=== PATIENT | female | born 1980 | race Caucasian/White ===

== ENCOUNTER 2022-10-14 11:05 | Inpatient (IN) ==
[2022-10-14] MEDS ORDERED: methylPREDNISolone 125 MG/2 ML VIAL IV STA ×2 (11:13→12:55)
[2022-10-14] MEDS ORDERED: HYDROmorphone INJ 0.5 MG/0.5 ML SYR IV STA ×2 (11:13→12:55)
[2022-10-14] MEDS ORDERED: ACETAMINOPHEN 1,000 MG/100 ML VIAL IV STA (11:13)
[2022-10-14] MEDS ORDERED: SODIUM CHLORIDE 0.9% 1000ML 1,000 ML IV ONE (11:26)
[2022-10-14 11:34] LABS: Basophils # (auto) 0.08 K/uL (0-0.2); Basophils % (auto) 0.8 %; Eosinophils # (auto) 0.14 K/uL (0-0.50); Eosinophils % (auto) 1.5 %; Hematocrit (blood only) 45.7 % (34.1-44.9); Hemoglobin 15.5 g/dl (12.0-16.0); Immature Granulocytes # (auto) 0.02 K/uL (0.00-0.02); Immature Granulocytes % (auto) 0.2 %; Mean Corpuscular Hemoglobin 28.9 pg (25.0-34.0); Mean Corpuscular Hgb Conc 33.9 g/dL (32.0-36.0); Mean Corpuscular Volume 85.3 fL (80.0-100.0); Mean Platelet Volume 9.7 fL (9.4-12.3); Monocytes % (auto) 7.4 %; Neutrophils # (auto) 6.57 K/uL (1.4-6.5); Neutrophils % (auto) 69.1 %; Platelet Count 427 K/uL (130-400); RDW Coefficient of Variation 12.6 % (11.5-14.5); RDW Standard Deviation 38.7 fL (36.4-46.3); Red Blood Count 5.36 M/uL (3.93-5.22); White Blood Count 9.51 K/ul (4.8-10.8)
[2022-10-14] MEDS ORDERED: OPTIRAY 320 500ml IV ONE (11:45)
[2022-10-14 11:56] LABS: Alanine Aminotransferase 26 U/L (7-52); Albumin Globulin Ratio 1.3 (0.9-2); Albumin Level 4.2 gm/dl (3.4-5.0); Alkaline Phosphatase 83 U/L (34-104); Anion Gap 7 (3-11); Aspartate Aminotransferase 16 U/L (13-39); BUN Creatinine Ratio 16.9 (10-20); Bilirubin,Total 0.3 mg/dl (0.2-1.0); Blood Urea Nitrogen 11 mg/dl (6-23); Calcium 9.6 mg/dl (8.5-10.1); Carbon Dioxide 29 mmol/L (21-32); Chloride 102 mmol/L (98-107); Est GFR (African American) 126.9 ml/min; Est GFR (Non-African American) 109.5 ml/min; Globulin 3.3 gm/dl (2.5-4.0); Glucose 125 mg/dl (70-99(Fasting)); Potassium 4.3 mmol/L (3.5-5.1); Sodium 138 mmol/L (136-145); Total Protein 7.5 gm/dl (6.0-8.3)
--- NOTE | 2022-10-14 12:07 | CT Scan Report ---
UNENHANCED CT OF THE BRAIN; CT ANGIOGRAM OF THE BRAIN; CT ANGIOGRAM OF THE NECK CLINICAL HISTORY: Strokelike symptoms. Slurred speech. COMPARISON STUDY: CT of the brain dated 10/06/2022. MRI and MR angiogram of the brain dated 10/06/20 22. TECHNIQUE: Unenhanced axial CT scan of the brain is performed. Subsequently, following the IV adminis tration of 114 of [employer] 320, CT angiogram of the head and neck was performed from the aortic arch t o the vertex. Images are reviewed in the axial, sagittal, and coronal planes. 3-D MIPS images are cre ated and assessed. IV contrast was administered without complication. All measurements were calculate d based on NASCET criteria. A dose lowering technique was utilized adhering to the principles of ALA RA. CT DOSE: 1068.23 mGy.cm FINDINGS: Brain parenchyma: The brain parenchyma is normal in appearance. There is no hemorrhage, mass effect, or evidence of acute territorial ischemia by CT criteria. There is no evidence of enhancing mass lesi on on the angiogram phase images. The ventricles, sulci, and cisterns are normal in configuration. Gr ay-white matter differentiation is preserved. No extra-axial fluid collection is seen. Thoracic aorta: Visualized portions of the thoracic aorta are normal in caliber. The aortic arch demo nstrates standard 3-vessel anatomy. Right carotid arterial system: The right common carotid artery is widely patent, as are the right int ernal and external carotid arteries. Left carotid arterial system: The left common carotid artery is widely patent, as are the left continuous improvement intern al and external carotid arteries. Vertebral arteries: The vertebral arteries are patent bilaterally noting left-sided dominance. There is a beaded appearance with 2 saccular outpouchings arising from the distal right vertebral artery at the level of C2 seen on images #249 and #258. These measure up to 4 mm. There is also focal narrowin g of the intervening vertebral artery at this level, best seen on axial image #257. A short segment d issection is not excluded. Subclavian arteries: Widely patent bilaterally. Intracranial vasculature: There are bilateral posterior communicating arteries. The internal carotid arteries are patent at the skull base, as are the anterior and middle cerebral arteries bilaterally. The vertebrobasilar system and posterior cerebral arteries are widely patent. The left vertebral wayne ry is dominant. There is no aneurysm, high-grade stenosis, or focal vessel cut off seen throughout th e intracranial circulation. Jugular veins: Patent bilaterally. Dural sinuses: Patent. Lung apices: Partially visualized upper lobe lung parenchyma appears clear. Soft tissues: The visualized pharyngeal soft tissues are normal in appearance noting angiographic pha se technique. The oropharyngeal airway appears widely patent. The salivary and thyroid glands are nor mal in appearance. No cervical lymphadenopathy is seen. Skeletal structures: The calvarium appears intact. The cervical spine is within normal limits. Orbits: The bony orbits are intact. Orbital contents are normal as visualized. Sinuses and mastoids: The paranasal sinuses are clear. The mastoid air cells are well pneumatized. IMPRESSION: 1. There is no hemorrhage, mass effect, or evidence of acute territorial ischemia by CT criteria. 2. Unremarkable CT angiogram of the brain. 3. There is a beaded appearance with 2 saccular outpouchings of the distal cervical portion of the ri ght vertebral artery at C2. The outpouching measure up to 4 mm. These may represent small aneurysms, or this could be seen with fibromuscular dysplasia. There is focal narrowing of the right vertebral a rtery between the outpouchings at this level such that a small dissection is not excluded. 4. Otherwise unremarkable CT angiogram of the neck. ACT 112: Negative or not required by law. Electronically signed by: Manny Neely M.D. 10/14/2022 12:05 PM
[2022-10-14 12:10] LABS: Partial Thromboplastin Time 27.9 Seconds (21.0-31.0); Prothrombin Time 10.3 Seconds (9.0-12.0)
--- NOTE | 2022-10-14 12:14 | Emergency Department Note ---
Impression & Plan Acute facial pain, Stroke-like symptoms, [facility] ED Provider Note CHIEF COMPLAINT: Stroke symptoms, FARFAN, shingles HISTORY OF PRESENT ILLNESS: This 42 yo female patient presents to the emergency department with complaints of left-sided facial pain and rash. Patient states she was diagnosed with shingles on the 18th of this month. The rash seemed to be getting better as well as the pain however the last 24 hours or so the rash seemed to progress. She states the pain is most significant in the left ear. She denies any fevers. She was seen by her PCP today who referred her to the emergency department for an episode of speech difficulty. states she was fine prior to him leaving for work at 8:00. Her doctor's appointment was at 905. The patient is not able to give a last known well other than not. 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 Initially upon my evaluation in the room, patient was neurologically intact, tearful and clutching the left side of the face. About 5 minutes into the interview and after her 's arrival into the room, the patient developed a left lower face droop, right sided tongue deviation and was unable to give her name and age. Stroke alert was called. REVIEW OF SYSTEMS: A review of systems was performed with positives and pertinent negatives listed in the history of present illness. 10 systems were reviewed and are otherwise negative. ALLERGIES: see below MEDICATIONS: see below PMH: see below SOCIAL HISTORY: see below DDx: Meningitis, encephalitis, stroke, dehydration, metabolic abnormality, hypo/hyperglycemia, electrolyte disturbance, anemia, hypoxia, cardiac sources, intracranial hemorrhage, intracranial mass, toxicologic, neurologic, as well as other pathologies. PHYSICAL EXAM: Vital signs reviewed. General: Anxious, tearful and otherwise well-appearing 42-year-old female, face covered with sweatshirt, holding the left ear HEENT: No scleral icterus, PERRLA, neck supple. EOMI, moist mucous membranes. Left ear canal is clear, no lesions identified. Cardiovascular: Regular rate and rhythm, no extra sounds. Pulmonary: Clear to auscultation bilaterally, normal work of breathing. Abdomen: Soft, nontender, nondistended, positive bowel sounds. Musculoskeletal: Atraumatic, no peripheral edema. Neurologic: Patient awake alert and oriented x 3, slight facial droop noted to the left lower face, upper face is intact. Right sided tongue deviation. Patient periodically unable to open her eyes. Initially speaking clearly, then unable to say her name, her age. Unable to lift each leg to command, but strength seems to be symmetric. Possible mild left upper extremity pronator drift Skin: Warm, dry, healing zoster rash to the left side of the face without ocular or nasal involvement. Crusted without active vesicles. EMERGENCY DEPARTMENT COURSE/MDM: Stress. IV access was obtained and laboratory work was drawn. A stroke alert was called from the patient's bedside due to the acute change in presentation normal speech to a slight facial droop and diffic ulty with articulation. CT/CTA of the head and neck was performed and is read as below, the right vertebral artery shows 2 small outpouchings and a vertebral artery narrowing. There is no evidence of acute stroke on CT and no large vessel occlusion. Dr. Rogers of telestroke neurology from [facility] did evaluate the patient via the stroke cart. He felt the patient's symptoms are likely more functional, less likely to be seizure versus stroke. She did request evaluation from our local neurologist, Dr. Colón was contacted. He has recommended follow-up with MRI w/wo contrast. Please see his notes for further details. The patient's case was discussed with the hospitalist, Dr. Gilliland who will evaluate the patient for admission and further management. Patient and are aware of plan and agreed. MONITORING: An order for cardiac monitoring was placed and the patient is noted to be in a sinus tachycardia at 103 beats per minute. RADIOLOGY: See below EKG: Normal sinus rhythm at 94 bpm. Minimal voltage criteria for LVH, QTC is 445. No PVC, no PAC. Normal ST segments. When compared to previous dated October 06, 2022, no significant changes were found. DISPOSITION: Admission I have personally spent 32 minutes of critical care time in the direct manage ment of this patient. This was a life/limb threatening event. This 32 minutes is in excess of all separately billable procedures. 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 Surgical History History of cholecystectomy Social History Smoking Status: Never smoker Tobacco Type: Cigarettes Preferred Language: Spanish Feels Safe at Home: Yes Allergies Allergies Allergy/AdvReac Type Severity Reaction Status Date / Time hydrocodone [From Vicodin] Allergy Intermediate ITCHY Verified 10/14/22 15:01 RASH, RESTLESSNESS levofloxacin [From Levaquin] Allergy Intermediate ITCHY Verified 10/14/22 15:01 RASH, RESTLESSNESS oxycodone [From Percocet] Allergy Intermediate ITCHY Verified 10/14/22 15:01 RASH, RESTLESSNESS Home Meds Home Medications Medication Instructions Recorded Confirmed estradiol 0.5 mg tablet 0.5 mg PO DAILY 10/06/22 10/14/22 lisdexamfetamine 60 mg capsule 60 mg PO DAILY 10/06/22 10/14/22 (Vyvanse) pantoprazole 40 mg tablet,delayed 40 mg PO HS 10/06/22 10/14/22 release zolpidem 10 mg tablet (Ambien) 10 mg PO HS PRN Sleep 10/06/22 10/14/22 paroxetine HCl 40 mg tablet 40 mg PO HS 10/14/22 10/14/22 prednisone 50 mg tablet 50 mg PO DAILY 10/14/22 10/14/22 tizanidine 2 mg tablet 2 mg PO DIRECTED PRN MUSCLE 10/14/22 10/14/22 SPASMS valacyclovir 1 gram tablet 1 mg PO TID 10/14/22 10/14/22 Results & Data (ED) Vital Signs Vital Signs - 24 hr 10/14/22 11:04 10/14/22 11:30 10/14/22 11:30 Temperature 37.2 C 37.2 C Temperature Source Oral Oral Pulse Rate 115 H Pulse Rate [Right Finger] 115 H Pulse Rate from SpO2 Sensor Pulse Rhythm Regular Pulse Rhythm [Right Finger] Regular Pulse Strength Normal Pulse Strength [Right Finger] Normal Respiratory Rate 22 22 Respiratory Effort / Characteristics Non-Labored Non-Labored Respiratory Depth Normal Normal Respiratory Pattern Regular Regular Blood Pressure 165/105 H Blood Pressure [Right Arm] 165/105 H Blood Pressure Mean 125 Blood Pressure Mean [Right Arm] 125 Blood Pressure Position Lying Blood Pressure Position [Right Arm] Lying Pulse Oximetry 99 99 Oxygen Delivery Method Room Air Room Air Room Air Sepsis Recent Fever Within 48 Hours No Sepsis New/Unexplained Change in Mental Status N/A Sepsis Action Taken by Nursing No Action Required 10/14/22 11:14 10/14/22 11:15 10/14/22 11:44 Temperature Temperature Source Pulse Rate 102 H 90 82 Pulse Rate [Right Finger] Pulse Rate from SpO2 Sensor 81 Pulse Rhythm Pulse Rhythm [Right Finger] Pulse Strength Pulse Strength [Right Finger] Respiratory Rate 18 13 16 Respiratory Effort / Characteristics Respiratory Depth Respiratory Pattern Blood Pressure Blood Pressure [Right Arm] Blood Pressure Mean Blood Pressure Mean [Right Arm] Blood Pressure Position Blood Pressure Position [Right Arm] Pulse Oximetry 100 Oxygen Delivery Method Sepsis Recent Fever Within 48 Hours Sepsis New/Unexplained Change in Mental Status Sepsis Action Taken by Nursing 10/14/22 11:45 10/14/22 11:45 10/14/22 12:00 Temperature Temperature Source Pulse Rate 77 Pulse Rate [Right Finger] Pulse Rate from SpO2 Sensor 77 Pulse Rhythm Pulse Rhythm [Right Finger] Pulse Strength Pulse Strength [Right Finger] Respiratory Rate 24 Respiratory Effort / Characteristics Respiratory Depth Respiratory Pattern Blood Pressure 177/110 H 186/112 H Blood Pressure [Right Arm] Blood Pressure Mean 132 136 Blood Pressure Mean [Right Arm] Blood Pressure Position Blood Pressure Position [Right Arm] Pulse Oximetry 100 Oxygen Delivery Method Sepsis Recent Fever Within 48 Hours Sepsis New/Unexplained Change in Mental Status Sepsis Action Taken by Nursing 10/14/22 12:00 10/14/22 12:30 10/14/22 13:00 Temperature Temperature Source Pulse Rate 87 70 67 Pulse Rate [Right Finger] Pulse Rate from SpO2 Sensor 85 Pulse Rhythm Pulse Rhythm [Right Finger] Pulse Strength Pulse Strength [Right Finger] Respiratory Rate 18 17 10 L Respiratory Effort / Characteristics Respiratory Depth Respiratory Pattern Blood Pressure Blood Pressure [Right Arm] Blood Pressure Mean Blood Pressure Mean [Right Arm] Blood Pressure Position Blood Pressure Position [Right Arm] Pulse Oximetry 100 Oxygen Delivery Method Sepsis Recent Fever Within 48 Hours Sepsis New/Unexplained Change in Mental Status Sepsis Action Taken by Nursing 10/14/22 13:11 10/14/22 13:11 Temperature Temperature Source Pulse Rate 83 Pulse Rate [Right Finger] Pulse Rate from SpO2 Sensor 82 Pulse Rhythm Pulse Rhythm [Right Finger] Pulse Strength Pulse Strength [Right Finger] Respiratory Rate 16 Respiratory Effort / Characteristics Respiratory Depth Respiratory Pattern Blood Pressure 170/116 H Blood Pressure [Right Arm] Blood Pressure Mean 134 Blood Pressure Mean [Right Arm] Blood Pressure Position Blood Pressure Position [Right Arm] Pulse Oximetry 99 Oxygen Delivery Method Sepsis Recent Fever Within 48 Hours Sepsis New/Unexplained Change in Mental Status Sepsis Action Taken by Jail Medications Current Medication List: was personally reviewed by me Laboratory Data Attestation: I reviewed the patient's lab results. Result diagrams: 10/14/22 11:10/14/22 11:21 Lab Results 10/14/22 10/14/22 10/14/22 Range/Units 11: 11: 11:25 WBC 9.51 (4.8-10.8) K/ul RBC 5.36 H (3.93-5.22) M/uL Hgb 15.5 (12.0-16.0) g/dl Hct 45.7 H (34.1-44.9) % MCV 85.3 (80.0-100.0) fL MCH 28.9 (25.0-34.0) pg MCHC 33.9 (32.0-36.0) g/dL RDW Std Deviation 38.7 (36.4-46.3) fL RDW Coeff of Sheryl 12.6 (11.5-14.5) % Plt Count 427 H (130-400) K/uL MPV 9.7 (9.4-12.3) fL Immature Gran % (Auto) 0.2 % Neut % (Auto) 69.1 % Lymph % (Auto) 21.0 % Josephine % (Auto) 7.4 % Eos % (Auto) 1.5 % Baso % (Auto) 0.8 % Neut # (Auto) 6.57 H (1.4-6.5) K/uL Lymph # (Auto) 2.00 (1.2-3.4) K/uL Josephine # (Auto) 0.70 (0.24-0.82) K/uL Eos # (Auto) 0.14 (0-0.50) K/uL Baso # (Auto) 0.08 (0-0.2) K/uL Immature Gran # (Auto) 0.02 (0.00-0.02) K/uL PT 10.3 (9.0-12.0) Seconds INR 1.0 (0.9-1.1) APTT 27.9 (21.0-31.0) Seconds PTT Ratio 1.0 Sodium 138 (136-145) mmol/L Potassium 4.3 (3.5-5.1) mmol/L Chloride 102 (98-107) mmol/L Carbon Dioxide 29 (21-32) mmol/L Anion Gap 7 (3-11) BUN 11 (6-23) mg/dl Creatinine 0.65 (0.6-1.2) mg/dl Est Cr Clr Drug Dosing Not Reportable Est GFR ( Amer) 126.9 ml/min Est GFR (Non-Af Amer) 109.5 ml/min BUN/Creatinine Ratio 16.9 (10-20) Glucose 125 H (70-99(Fasting)) mg/dl Calcium 9.6 (8.5-10.1) mg/dl Magnesium (1.7-2.4) mg/dl Total Bilirubin 0.3 (0.2-1.0) mg/dl AST 16 (13-39) U/L ALT 26 (7-52) U/L Alkaline Phosphatase 83 (34-104) U/L Troponin I High Sens (0-14) pg/ml Total Protein 7.5 (6.0-8.3) gm/dl Albumin 4.2 (3.4-5.0) gm/dl Globulin 3.3 (2.5-4.0) gm/dl Albumin/Globulin Ratio 1.3 (0.9-2) Adenovirus (PCR) (NotDetected) B. pertussis DNA (PCR) (NotDetected) B.parapertussis DNA PCR (NotDetected) C. pneumoniae DNA (PCR) (NotDetected) Coronavirus OC43 (PCR) (NotDetected) Coronavirus HKU1 (PCR) (NotDetected) Coronavirus 229E (PCR) (NotDetected) SARS-CoV-2 (PCR) (NotDetected) Coronavirus NL63 (PCR) (NotDetected) Human Metapneumovir PCR (NotDetected) Influenza Type A (PCR) (NotDetected) Influenza Type B (PCR) (NotDetected) M. pneumoniae (PCR) (NotDetected) Parainfluenza 1 (PCR) (NotDetected) Parainfluenza 2 (PCR) (NotDetected) Parainfluenza 3 (PCR) (NotDetected) Parainfluenza 4 (PCR) (NotDetected) RSV (PCR) (NotDetected) Entero/Rhino (PCR) (NotDetected) 10/14/22 10/14/22 Range/Units 11:25 12:18 WBC (4.8-10.8) K/ul RBC (3.93-5.22) M/uL Hgb (12.0-16.0) g/dl Hct (34.1-44.9) % MCV (80.0-100.0) fL MCH (25.0-34.0) pg MCHC (32.0-36.0) g/dL RDW Std Deviation (36.4-46.3) fL RDW Coeff of Sheryl (11.5-14.5) % Plt Count (130-400) K/uL MPV (9.4-12.3) fL Immature Gran % (Auto) % Neut % (Auto) % Lymph % (Auto) % Josephine % (Auto) % Eos % (Auto) % Baso % (Auto) % Neut # (Auto) (1.4-6.5) K/uL Lymph # (Auto) (1.2-3.4) K/uL Josephine # (Auto) (0.24-0.82) K/uL Eos # (Auto) (0-0.50) K/uL Baso # (Auto) (0-0.2) K/uL Immature Gran # (Auto) (0.00-0.02) K/uL PT (9.0-12.0) Seconds INR (0.9-1.1) APTT (21.0-31.0) Seconds PTT Ratio Sodium (136-145) mmol/L Potassium (3.5-5.1) mmol/L Chloride (98-107) mmol/L Carbon Dioxide (21-32) mmol/L Anion Gap (3-11) BUN (6-23) mg/dl Creatinine (0.6-1.2) mg/dl Est Cr Clr Drug Dosing Est GFR ( Amer) ml/min Est GFR (Non-Af Amer) ml/min BUN/Creatinine Ratio (10-20) Glucose (70-99(Fasting)) mg/dl Calcium (8.5-10.1) mg/dl Magnesium 2.3 (1.7-2.4) mg/dl Total Bilirubin (0.2-1.0) mg/dl AST (13-39) U/L ALT (7-52) U/L Alkaline Phosphatase (34-104) U/L Troponin I High Sens 10.4 D (0-14) pg/ml Total Protein (6.0-8.3) gm/dl Albumin (3.4-5.0) gm/dl Globulin (2.5-4.0) gm/dl Albumin/Globulin Ratio (0.9-2) Adenovirus (PCR) Not Detected (NotDetected) B. pertussis DNA (PCR) Not Detected (NotDetected) B.parapertussis DNA PCR Not Detected (NotDetected) C. pneumoniae DNA (PCR) Not Detected (NotDetected) Coronavirus OC43 (PCR) Not Detected (NotDetected) Coronavirus HKU1 (PCR) Not Detected (NotDetected) Coronavirus 229E (PCR) Not Detected (NotDetected) SARS-CoV-2 (PCR) Not Detected (NotDetected) Coronavirus NL63 (PCR) Not Detected (NotDetected) Human Metapneumovir PCR Not Detected (NotDetected) Influenza Type A (PCR) Not Detected (NotDetected) Influenza Type B (PCR) Not Detected (NotDetected) M. pneumoniae (PCR) Not Detected (NotDetected) Parainfluenza 1 (PCR) Not Detected (NotDetected) Parainfluenza 2 (PCR) Not Detected (NotDetected) Parainfluenza 3 (PCR) Not Detected (NotDetected) Parainfluenza 4 (PCR) Not Detected (NotDetected) RSV (PCR) Not Detected (NotDetected) Entero/Rhino (PCR) Not Detected (NotDetected) Administered Medications Aspirin (Aspirin 81 Mg Ectab) 81 mg PO DAILY [facility] Stop: 11/13/22 15:59 Last Admin: 10/14/22 16:51 Dose: 81 mg Documented By: RDD Gabapentin (Gabapentin 100 Mg Cap) 100 mg PO TID JUAN Stop: 11/13/22 15:41 Last Admin: 10/14/22 16:41 Dose: Not Given Documented By: FIDENCIO Heparin Sodium (Porcine) (Heparin Sod 5,000 Unit/0.5 Ml Vial) 5,000 units SQ Q8H JUAN Stop: 11/13/22 16:14 Last Admin: 10/14/22 17:34 Dose: 5,000 units Documented By: FIDENCIO Miscellaneous (Order Awaiting Action (Estradiol 0.5 Mg Tablet)) 1 each N/A QS S CH Stop: 11/13/22 15:59 Last Admin: 10/14/22 18:22 Dose: Not Given Documented By: RANCHO Oxycodone HCl (Oxycodone Hcl Ir 5 Mg Tab (Immediate Release)) 10 mg PO Q6H PRN PRN Reason: pain Stop: 10/28/22 15:41 Last Admin: 10/14/22 16:50 Dose: 10 mg Documented By: FIDENCIO Discontinued Medications Diphenhydramine HCl (Diphenhydramine 50 Mg/Ml Vial) 25 mg IV NOW STA Stop: 10/14/22 12:56 Last Admin: 10/14/22 13:05 Dose: 25 mg Documented By: FIDENCIO Gabapentin (Gabapentin 100 Mg Cap) 100 mg PO ONE ONE Stop: 10/14/22 14:46 Last Admin: 10/14/22 15:38 Dose: 100 mg Documented By: FIDENCIO Gabapentin (Gabapentin 100 Mg Cap) 100 mg PO ONE ONE Stop: 10/14/22 16:01 Last Admin: 10/14/22 16:41 Dose: Not Given Documented By: FIDENCIO Hydromorphone HCl (Hydromorphone Inj 0.5 Mg/0.5 Ml Syr) 0.5 mg IV NOW STA Stop: 10/14/22 11:14 Last Admin: 10/14/22 12:10 Dose: Not Given Documented By: FIDENCIO Hydromorphone HCl (Hydromorphone Inj 0.5 Mg/0.5 Ml Syr) 0.25 mg IV NOW STA Stop: 10/14/22 12:56 Last Admin: 10/14/22 13:05 Dose: 0.25 mg Documented By: FIDENCIO Hydromorphone HCl (Hydromorphone Inj 1 Mg/Ml Syringe) 1 mg IV NOW STA Stop: 10/14/22 14:30 Last Admin: 10/14/22 14:39 Dose: 1 mg Documented By: FIDENCIO Acetaminophen (Ofirmev) 1,000 mg in 100 mls @ 400 mls/hr IV NOW STA Stop: 10/14/22 11:27 Last Infusion: 10/14/22 13:11 Dose: 0 mls/hr Documented By: Admin: 10/14/22 12:10 Dose: 400 mls/hr Documented By: FIDENCIO Sodium Chloride (Nss 1000ml) 1,000 mls @ 999 mls/hr IV .Q1H1M ONE Stop: 10/14/22 12:26 Last Infusion: 10/14/22 13:12 Dose: 0 mls/hr Documented By: Admin: 10/14/22 12:06 Dose: 999 mls/hr Documented By: FIDENCIO Ioversol (Optiray 320 500ml) 114 ml IV ONCE ONE Stop: 10/14/22 11:46 Last Admin: 10/14/22 11:45 Dose: 114 ml Documented By: WVIvan Methylprednisolone (Methylprednisolone 125 Mg/2 Ml Vial) 60 mg IV NOW STA Stop: 10/14/22 11:14 Last Admin: 10/14/22 12:10 Dose: Not Given Documented By: FIDENCIO Methylprednisolone (Methylprednisolone 125 Mg/2 Ml Vial) 60 mg IV NOW STA Stop: 10/14/22 12:56 Last Admin: 10/14/22 13:06 Dose: 60 mg Documented By: FIDENCIO Imaging Data Radiologist's Impression: Head CT 10/14/22 11:[address] OF THE BRAIN; CT ANGIOGRAM OF THE BRAIN; CT ANGIOGRAM OF THE NECK CLINICAL HISTORY: Strokelike symptoms. Slurred speech. COMPARISON STUDY: CT of the brain dated 10/06/2022. MRI and MR angiogram of the brain dated 10/06/2022. TECHNIQUE: Unenhanced axial CT scan of the brain is performed. Subsequently, following the IV administration of 114 of Optiray 320, CT angiogram of the head and neck was performed from the aortic arch to the vertex. Images are reviewed in the axial, sagittal, and coronal planes. 3-D MIPS images are created and assessed. IV contrast was administered without complication. All measurements were calculated based on NASCET criteria. A dose lowering technique was utilized adhering to the principles of ALARA. CT DOSE: 1068.23 mGy.cm FINDINGS: Brain parenchyma: The brain parenchyma is normal in appearance. There is no hemorrhage, mass effect, or evidence of acute territorial ischemia by CT criteri a. There is no evidence of enhancing mass lesion on the angiogram phase images. The ventricles, sulci, and cisterns are normal in configuration. Chavez-white matter differentiation is preserved. No extra-axial fluid collection is seen. Thoracic aorta: Visualized portions of the thoracic aorta are normal in caliber. The aortic arch demonstrates standard 3-vessel anatomy. Right carotid arterial system: The right common carotid artery is widely patent, as are the right internal and external carotid arteries. Left carotid arterial system: The left common carotid artery is widely patent, as are the left internal and external carotid arteries. Vertebral arteries: The vertebral arteries are patent bilaterally noting left- sided dominance. There is a beaded appearance with 2 saccular outpouchings arising from the distal right vertebral artery at the level of C2 seen on images #249 and #258. These measure up to 4 mm. There is also focal narrowing of the intervening vertebral artery at this level, best seen on axial image #257. A short segment dissection is not excluded. Subclavian arteries: Widely patent bilaterally. Intracranial vasculature: There are bilateral posterior communicating arteries. The internal carotid arteries are patent at the skull base, as are the anterior and middle cerebral arteries bilaterally. The vertebrobasilar system and posterior cerebral arteries are widely patent. The left vertebral artery is dominant. There is no aneurysm, high-grade stenosis, or focal vessel cut off seen throughout the intracranial circulation. Jugular veins: Patent bilaterally. Dural sinuses: Patent. Lung apices: Partially visualized upper lobe lung parenchyma appears clear. Soft tissues: The visualized pharyngeal soft tissues are normal in appearance noting angiographic phase technique. The oropharyngeal airway appears widely patent. The salivary and thyroid glands are normal in appearance. No cervical lymphadenopathy is seen. Skeletal structures: The calvarium appears intact. The cervical spine is within normal limits. Orbits: The bony orbits are intact. Orbital contents are normal as visualized. Sinuses and mastoids: The paranasal sinuses are clear. The mastoid air cells are well pneumatized. IMPRESSION: 1. There is no hemorrhage, mass effect, or evidence of acute territorial ischemia by CT criteria. 2. Unremarkable CT angiogram of the brain. 3. There is a beaded appearance with 2 saccular outpouchings of the distal cervical portion of the right vertebral artery at C2. The outpouching measure up to 4 mm. These may represent small aneurysms, or this could be seen with fibromuscular dysplasia. There is focal narrowing of the right vertebral artery between the outpouchings at this level such that a small dissection is not excluded. 4. Otherwise unremarkable CT angiogram of the neck. ACT 112: Negative or not required by law. Electronically signed by: Manny Neely M.D. 10/14/2022 12:05 PM Head CTA 10/14/22 11:[address] OF THE BRAIN; CT ANGIOGRAM OF THE BRAIN; CT ANGIOGRAM OF THE NECK CLINICAL HISTORY: Strokelike symptoms. Slurred speech. COMPARISON STUDY: CT of the brain dated 10/06/2022. MRI and MR angiogram of the brain dated 10/06/2022. TECHNIQUE: Unenhanced axial CT scan of the brain is performed. Subsequently, following the IV administration of 114 of Optiray 320, CT angiogram of the head and neck was performed from the aortic arch to the vertex. Images are reviewed in the axial, sagittal, and coronal planes. 3-D MIPS images are created and assessed. IV contrast was administered without complication. All measurements were calculated based on NASCET criteria. A dose lowering technique was utilized adhering to the principles of ALARA. CT DOSE: 1068.23 mGy.cm FINDINGS: Brain parenchyma: The brain parenchyma is normal in appearance. There is no hemorrhage, mass effect, or evidence of acute territorial ischemia by CT criteria. There is no evidence of enhancing mass lesion on the angiogram phase images. The ventricles, sulci, and cisterns are normal in configuration. Chavez- white matter differentiation is preserved. No extra-axial fluid collection is seen. Thoracic aorta: Visualized portions of the thoracic aorta are normal in caliber. The aortic arch demonstrates standard 3-vessel anatomy. Right carotid arterial system: The right common carotid artery is widely patent, as are the right internal and external carotid arteries. Left carotid arterial system: The left common carotid artery is widely patent, as are the left internal and external carotid arteries. Vertebral arteries: The vertebral arteries are patent bilaterally noting left- sided dominance. There is a beaded appearance with 2 saccular outpouchings arising from the distal right vertebral artery at the level of C2 seen on images #249 and #258. These measure up to 4 mm. There is also focal narrowing of the intervening vertebral artery at this level, best seen on axial image #257. A short segment dissection is not excluded. Subclavian arteries: Widely patent bilaterally. Intracranial vasculature: There are bilateral posterior communicating arteries. The internal carotid arteries are patent at the skull base, as are the anterior and middle cerebral arteries bilaterally. The vertebrobasilar system and posterior cerebral arteries are widely patent. The left vertebral artery is dominant. There is no aneurysm, high-grade stenosis, or focal vessel cut off se en throughout the intracranial circulation. Jugular veins: Patent bilaterally. Dural sinuses: Patent. Lung apices: Partially visualized upper lobe lung parenchyma appears clear. Soft tissues: The visualized pharyngeal soft tissues are normal in appearance noting angiographic phase technique. The oropharyngeal airway appears widely patent. The salivary and thyroid glands are normal in appearance. No cervical lymphadenopathy is seen. Skeletal structures: The calvarium appears intact. The cervical spine is within normal limits. Orbits: The bony orbits are intact. Orbital contents are normal as visualized. Sinuses and mastoids: The paranasal sinuses are clear. The mastoid air cells are well pneumatized. IMPRESSION: 1. There is no hemorrhage, mass effect, or evidence of acute territorial ischemia by CT criteria. 2. Unremarkable CT angiogram of the brain. 3. There is a beaded appearance with 2 saccular outpouchings of the distal cervical portion of the right vertebral artery at C2. The outpouching measure up to 4 mm. These may represent small aneurysms, or this could be seen with fibromu scular dysplasia. There is focal narrowing of the right vertebral artery between the outpouchings at this level such that a small dissection is not excluded. 4. Otherwise unremarkable CT angiogram of the neck. ACT 112: Negative or not required by law. Electronically signed by: Manny Neely M.D. 10/14/2022 12:05 PM Neck CTA 10/14/22 11:[address] OF THE BRAIN; CT ANGIOGRAM OF THE BRAIN; CT ANGIOGRAM OF THE NECK CLINICAL HISTORY: Strokelike symptoms. Slurred speech. COMPARISON STUDY: CT of the brain dated 10/06/2022. MRI and MR angiogram of the brain dated 10/06/2022. TECHNIQUE: Unenhanced axial CT scan of the brain is performed. Subsequently, following the IV administration of 114 of Optiray 320, CT angiogram of the head and neck was performed from the aortic arch to the vertex. Images are reviewed in the axial, sagittal, and coronal planes. 3-D MIPS images are created and assessed. IV contrast was administered without complication. All measurements were calculated based on NASCET criteria. A dose lowering technique was utilized adhering to the principles of ALARA. CT DOSE: 1068.23 mGy.cm FINDINGS: Brain parenchyma: The brain parenchyma is normal in appearance. There is no hemorrhage, mass effect, or evidence of acute territorial ischemia by CT criteria. There is no evidence of enhancing mass lesion on the angiogram phase images. The ventricles, sulci, and cisterns are normal in configuration. Chavez- white matter differentiation is preserved. No extra-axial fluid collection is seen. Thoracic aorta: Visualized portions of the thoracic aorta are normal in caliber. The aortic arch demonstrates standard 3-vessel anatomy. Right carotid arterial system: The right common carotid artery is widely patent, as are the right internal and external carotid arteries. Left carotid arterial system: The left common carotid artery is widely patent, as are the left internal and external carotid arteries. Vertebral arteries: The vertebral arteries are patent bilaterally noting left- sided dominance. There is a beaded appearance with 2 saccular outpouchings arising from the distal right vertebral artery at the level of C2 seen on images #249 and #258. These measure up to 4 mm. There is also focal narrowing of the intervening vertebral artery at this level, best seen on axial image #257. A short segment dissection is not excluded. Subclavian arteries: Widely patent bilaterally. Intracranial vasculature: There are bilateral posterior communicating arteries. The internal carotid arteries are patent at the skull base, as are the anterior and middle cerebral arteries bilaterally. The vertebrobasilar system and posterior cerebral arteries are widely patent. The left vertebral artery is dominant. There is no aneurysm, high-grade stenosis, or focal vessel cut off seen throughout the intracranial circulation. Jugular veins: Patent bilaterally. Dural sinuses: Patent. Lung apices: Partially visualized upper lobe lung parenchyma appears clear. Soft tissues: The visualized pharyngeal soft tissues are normal in appearance noting angiographic phase technique. The oropharyngeal airway appears widely patent. The salivary and thyroid glands are normal in appearance. No cervical lymphadenopathy is seen. Skeletal structures: The calvarium appears intact. The cervical spine is within normal limits. Orbits: The bony orbits are intact. Orbital contents are normal as visualized. Sinuses and mastoids: The paranasal sinuses are clear. The mastoid air cells are well pneumatized. IMPRESSION: 1. There is no hemorrhage, mass effect, or evidence of acute territorial ischemia by CT criteria. 2. Unremarkable CT angiogram of the brain. 3. There is a beaded appearance with 2 saccular outpouchings of the distal cervical portion of the right vertebral artery at C2. The outpouching measure up to 4 mm. These may represent small aneurysms, or this could be seen with fibromuscular dysplasia. There is focal narrowing of the right vertebral artery between the outpouchings at this level such that a small dissection is not excluded. 4. Otherwise unremarkable CT angiogram of the neck. ACT 112: Negative or not required by law. Electronically signed by: Manny Neely M.D. 10/14/2022 12:05 PM Blood Pressure Blood Pressure Findings: Elevated blood pressure Blood Pressure Disposition: further management by hospitalist Discharge Plan Visit Data Chief Complaint: Weakness Stated Complaint: NAUSEA, VOMITING, SHINGLE PAIN ED Provider: Janeen Dodson Discharge Problem: Acute facial pain, Stroke-like symptoms, Zoster Patient Disposition: Admitted As Inpatient Discharge Instructions Interventions: ED Discharge Assessment Last Done: 10/14/22 15:33
[2022-10-14 12:29] LABS: Magnesium 2.3 mg/dl (1.7-2.4)
[2022-10-14 12:35] LABS: Troponin I High Sensitivity 10.4 pg/ml (0-14)
[2022-10-14] MEDS ORDERED: diphenhydrAMINE 50 MG/ML VIAL IV STA (12:55)
--- NOTE | 2022-10-14 13:01 | History & Physical Report ---
Date of Service October 14, 2022 Assessment & Plan (1) TIA (transient ischemic attack): Plan: Patient presents with transient neurological changes mostly seen with left facial asymmetry usually with regard to his her smile and tongue movements and description in triage of left development vice president discordance. Stroke alert and imaging refused any acute changes of stroke. There is concern of some saccular outpouchings of the right vertebral artery and I did personally discuss this with Dr. Neely at this time we will repeat MRI of the brain in the morning unless she has decline in her neurological status. Patient has a distant history of migraines. Concerned that this could be atypical migraine as her significant pain associated with it. She has no delirium could be concern for herpes encephalitis To this and we will give her aspirin and atorvastatin neurology consult did see both telestroke and a in-house neurologist was consulted (2) Acute facial pain: Plan: Patient's acute facial pain will be first treated with the institution of gabapentin for postherpetic neuralgia. She has an allergy to acetaminophen subsequently we will use oxycodone hydromorphone and Toradol for pain control (3) Zoster: Plan: Her zoster seems to be healing well we will continue Valtrex at this time Plan Heparin will be used for DVT prevention History of Present Illness Primary Care Provider: Marta Hardy 42 yo female patient presents to the emergency department with complaints of left-sided facial pain and rash. Patient states she was diagnosed with shingles on the 18th of this month. The rash seemed to be getting better as well as the pain however the last 24 hours or so the rash seemed to progress. She states the pain is most significant in the left ear. She denies any fevers. She was seen by her PCP today who referred her to the emergency department for an episode of speech difficulty and some concern of left facial droop and minor left development vice president strength decreased. states she was fine prior to him leaving for work at 8:00. Her doctor's appointment was at 905. The patient is not able to give a last known well other than not. Patient had resolved at the doctor's office but then triage have another episode, nurses felt the left development vice president strength was slightly weaker as well with the left sided facial droop. Initially upon Dr. Dodson evaluation in the room, patient was neurologically intact, tearful and clutching the left side of the face. About 5 minutes into the interview and after her 's arrival into the room, the patient developed a left lower face droop, right sided tongue deviation and was unable to give her name and age. Stroke alert was called. According to description of the neurology telestroke person did not feel this would warrant thrombolytic therapy and did not feel that the description of possible aneurysms seen on CT of the head, in the distal cervical portion of the right vertebral artery at C2 could be associated with her symptom complex. There was recommendation for a possible additional imaging from the telestroke person. I personally spoke with Dr. Manny Kohler who feels that since the patient had an MRI 2 weeks ago without evidence of significant concerns the only reason he would recommend additional imaging would be if the patient develops progressive neurological changes then an MRI of the brain may be beneficial. He did mention that he feels there may be some concern for fibromuscular dysplasia we will discuss this with neurology consult on this patient Patient is admitted for pain control continue with treatment of her zoster Allergies Allergy/AdvReac Type Severity Reaction Status Date / Time acetaminophen [From Percocet] Allergy Unknown Unverified 10/06/22 10:52 hydrocodone [From Vicodin] Allergy Unknown Unverified 10/06/22 10:52 levofloxacin [From Levaquin] Allergy Unknown Unverified 10/06/22 10:52 oxycodone [From Percocet] Allergy Unknown Unverified 10/06/22 10:52 Home Medications Medication Instructions Recorded Confirmed Type estradiol 0.5 mg tablet 0.5 mg PO DAILY 10/06/22 10/06/22 History lisdexamfetamine 60 mg capsule 60 mg PO DAILY 10/06/22 10/06/22 History (Vyvanse) pantoprazole 40 mg tablet,delayed 40 mg PO DAILY 10/06/22 10/06/22 History release zolpidem 10 mg tablet (Ambien) 10 mg PO HS PRN Sleep 10/06/22 10/06/22 History oxycodone 5 mg tablet 5 mg PO Q6H PRN pain #14 tabs 10/09/22 Rx Past Med/Surg History Medical History (Updated 10/14/22 @ 13:43 by Serge Gilliland MD) Absence, ovary, 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 Surgical History (Updated 10/14/22 @ 13:40 by Serge Gilliland MD) History of cholecystectomy Social History Smoking Status: Never smoker Tobacco Type: Cigarettes Preferred Language: Nigerien Feels Safe at Home: Yes Review of Systems Review of Systems: moderate distress and fatigue from headache no headache, no visual changes no speech or swallowing issues, does have some left facial drooping no chest pain, pressure or palpitations no shortness of breath, cough or wheezes no abdominal pain, nausea or vomiting, diarrhea or constipation no dysuria, hematuria or frequency no focal joint pain or swelling no back pain, CVA tenderness or radicular pain no bruising, bleeding or rashes does have some minor left lower facial weakness with smile and tongue movement s no complaints of anxiety or depression.. Physical Exam Physical Exam: The patient appeared well nourished and normally developed. Vital signs as documented. Head exam is normocephalic atraumatic tm and oral pharnyx are clear Neck is without JVD, thyromegaly, or carotid bruits. Lungs are clear to auscultation, no focal loss of breath sounds Cardiac exam, Rhythm is regular.. No murmurs, rubs or gallops. Abdominal exam reveals normal bowel sounds, soft non tender, no masses Extremities are nonedematous and both pedal pulses are present Neurologic exam is alert and oriented, has no development vice president difference or lower leg difference, does have some minor asymmetry to smile and cannot move tongue Skin is with healing Zoster Psychologically is without concerns for anxiety or depression.. Results & Data Results & Data ([facility]) Vital Signs (Past 12 Hours) Vital Signs Temp Pulse Pulse Resp BP BP Pulse Ox 10/14/22 11:15 90 13 10/14/22 11:14 102 H 18 10/14/22 11:30 98.9 F 115 H 22 165/105 H 99 10/14/22 11:30 10/14/22 11:04 98.9 F 115 H 22 165/105 H 99 O2 Del Method 10/14/22 11:15 10/14/22 11:14 10/14/22 11:30 Room Air 10/14/22 11:30 Room Air 10/14/22 11:04 Room Air Diagnostic Findings Head CT 10/14/22 11:[address] OF THE BRAIN; CT ANGIOGRAM OF THE BRAIN; CT ANGIOGRAM OF THE NECK CLINICAL HISTORY: Strokelike symptoms. Slurred speech. COMPARISON STUDY: CT of the brain dated 10/06/2022. MRI and MR angiogram of the brain dated 10/06/2022. TECHNIQUE: Unenhanced axial CT scan of the brain is performed. Subsequently, following the IV administration of 114 of Optiray 320, CT angiogram of the head and neck was performed from the aortic arch to the vertex. Images are reviewed in the axial, sagittal, and coronal planes. 3-D MIPS images are created and assessed. IV contrast was administered without complication. All measurements were calculated based on NASCET criteria. A dose lowering technique was utilized adhering to the principles of ALARA. CT DOSE: 1068.23 mGy.cm FINDINGS: Brain parenchyma: The brain parenchyma is normal in appearance. There is no hemorrhage, mass effect, or evidence of acute territorial ischemia by CT criteria. There is no evidence of enhancing mass lesion on the angiogram phase images. The ventricles, sulci, and cisterns are normal in configuration. Chavez- white matter differentiation is preserved. No extra-axial fluid collection is seen. Thoracic aorta: Visualized portions of the thoracic aorta are normal in caliber. The aortic arch demonstrates standard 3-vessel anatomy. Right carotid arterial system: The right common carotid artery is widely patent, as are the right internal and external carotid arteries. Left carotid arterial system: The left common carotid artery is widely patent, as are the left internal and external carotid arteries. Vertebral arteries: The vertebral arteries are patent bilaterally noting left- sided dominance. There is a beaded appearance with 2 saccular outpouchings arising from the distal right vertebral artery at the level of C2 seen on images #249 and #258. These measure up to 4 mm. There is also focal narrowing of the intervening vertebral artery at this level, best seen on axial image #257. A short segment dissection is not excluded. Subclavian arteries: Widely patent bilaterally. Intracranial vasculature: There are bilateral posterior communicating arteries. The internal carotid arteries are patent at the skull base, as are the anterior and middle cerebral arteries bilaterally. The vertebrobasilar system and posterior cerebral arteries are widely patent. The left vertebral artery is dominant. There is no aneurysm, high-grade stenosis, or focal vessel cut off seen throughout the intracranial circulation. Jugular veins: Patent bilaterally. Dural sinuses: Patent. Lung apices: Partially visualized upper lobe lung parenchyma appears clear. Soft tissues: The visualized pharyngeal soft tissues are normal in appearance noting angiographic phase technique. The oropharyngeal airway appears widely patent. The salivary and thyroid glands are normal in appearance. No cervical lymphadenopathy is seen. Skeletal structures: The calvarium appears intact. The cervical spine is within normal limits. Orbits: The bony orbits are intact. Orbital contents are normal as visualized. Sinuses and mastoids: The paranasal sinuses are clear. The mastoid air cells are well pneumatized. IMPRESSION: 1. There is no hemorrhage, mass effect, or evidence of acute territorial ischemia by CT criteria. 2. Unremarkable CT angiogram of the brain. 3. There is a beaded appearance with 2 saccular outpouchings of the distal cervical portion of the right vertebral artery at C2. The outpouching measure up to 4 mm. These may represent small aneurysms, or this could be seen with fibromuscular dysplasia. There is focal narrowing of the right vertebral artery between the outpouchings at this level such that a small dissection is not excluded. 4. Otherwise unremarkable CT angiogram of the neck. ACT 112: Negative or not required by law. Electronically signed by: Manny Neely M.D. 10/14/2022 12:05 PM Head CTA 10/14/22 11:[address] OF THE BRAIN; CT ANGIOGRAM OF THE BRAIN; CT ANGIOGRAM OF THE NECK CLINICAL HISTORY: Strokelike symptoms. Slurred speech. COMPARISON STUDY: CT of the brain dated 10/06/2022. MRI and MR angiogram of the brain dated 10/06/2022. TECHNIQUE: Unenhanced axial CT scan of the brain is performed. Subsequently, following the IV administration of 114 of Optiray 320, CT angiogram of the head and neck was performed from the aortic arch to the vertex. Images are reviewed in the axial, sagittal, and coronal planes. 3-D MIPS images are created and assessed. IV contrast was administered without complication. All measurements were calculated based on NASCET criteria. A dose lowering technique was utilized adhering to the principles of ALARA. CT DOSE: 1068.23 mGy.cm FINDINGS: Brain parenchyma: The brain parenchyma is normal in appearance. There is no hemorrhage, mass effect, or evidence of acute territorial ischemia by CT cr iteria. There is no evidence of enhancing mass lesion on the angiogram phase images. The ventricles, sulci, and cisterns are normal in configuration. Chavez- white matter differentiation is preserved. No extra-axial fluid collection is seen. Thoracic aorta: Visualized portions of the thoracic aorta are normal in caliber. The aortic arch demonstrates standard 3-vessel anatomy. Right carotid arterial system: The right common carotid artery is widely patent, as are the right internal and external carotid arteries. Left carotid arterial system: The left common carotid artery is widely patent, a s are the left internal and external carotid arteries. Vertebral arteries: The vertebral arteries are patent bilaterally noting left- sided dominance. There is a beaded appearance with 2 saccular outpouchings arising from the distal right vertebral artery at the level of C2 seen on images #249 and #258. These measure up to 4 mm. There is also focal narrowing of the intervening vertebral artery at this level, best seen on axial image #257. A short segment dissection is not excluded. Subclavian arteries: Widely patent bilaterally. Intracranial vasculature: There are bilateral posterior communicating arteries. The internal carotid arteries are patent at the skull base, as are the anterior and middle cerebral arteries bilaterally. The vertebrobasilar system and posterior cerebral arteries are widely patent. The left vertebral artery is dominant. There is no aneurysm, high-grade stenosis, or focal vessel cut off seen throughout the intracranial circulation. Jugular veins: Patent bilaterally. Dural sinuses: Patent. Lung apices: Partially visualized upper lobe lung parenchyma appears clear. Soft tissues: The visualized pharyngeal soft tissues are normal in appearance noting angiographic phase technique. The oropharyngeal airway appears widely patent. The salivary and thyroid glands are normal in appearance. No cervical lymphadenopathy is seen. Skeletal structures: The calvarium appears intact. The cervical spine is within normal limits. Orbits: The bony orbits are intact. Orbital contents are normal as visualized. Sinuses and mastoids: The paranasal sinuses are clear. The mastoid air cells are well pneumatized. IMPRESSION: 1. There is no hemorrhage, mass effect, or evidence of acute territorial ischemia by CT criteria. 2. Unremarkable CT angiogram of the brain. 3. There is a beaded appearance with 2 saccular outpouchings of the distal cervical portion of the right vertebral artery at C2. The outpouching measure up to 4 mm. These may represent small aneurysms, or this could be seen with fibromuscular dysplasia. There is focal narrowing of the right vertebral artery between the outpouchings at this level such that a small dissection is not excluded. 4. Otherwise unremarkable CT angiogram of the neck. ACT 112: Negative or not required by law. Electronically signed by: Manny Neely M.D. 10/14/2022 12:05 PM Neck CTA 10/14/22 11:[address] OF THE BRAIN; CT ANGIOGRAM OF THE BRAIN; CT ANGIOGRAM OF THE NECK CLINICAL HISTORY: Strokelike symptoms. Slurred speech. COMPARISON STUDY: CT of the brain dated 10/06/2022. MRI and MR angiogram of the brain dated 10/06/2022. TECHNIQUE: Unenhanced axial CT scan of the brain is performed. Subsequently, following the IV administration of 114 of Optiray 320, CT angiogram of the head and neck was performed from the aortic arch to the vertex. Images are reviewed in the axial, sagittal, and coronal planes. 3-D MIPS images are created and a ssessed. IV contrast was administered without complication. All measurements were calculated based on NASCET criteria. A dose lowering technique was utilized adhering to the principles of ALARA. CT DOSE: 1068.23 mGy.cm FINDINGS: Brain parenchyma: The brain parenchyma is normal in appearance. There is no hemorrhage, mass effect, or evidence of acute territorial ischemia by CT criteria. There is no evidence of enhancing mass lesion on the angiogram phase images. The ventricles, sulci, and cisterns are normal in configuration. Chavez- white matter differentiation is preserved. No extra-axial fluid collection is seen. Thoracic aorta: Visualized portions of the thoracic aorta are normal in caliber. The aortic arch demonstrates standard 3-vessel anatomy. Right carotid arterial system: The right common carotid artery is widely patent, as are the right internal and external carotid arteries. Left carotid arterial system: The left common carotid artery is widely patent, as are the left internal and external carotid arteries. Vertebral arteries: The vertebral arteries are patent bilaterally noting left- sided dominance. There is a beaded appearance with 2 saccular outpouchings donovan sing from the distal right vertebral artery at the level of C2 seen on images #249 and #258. These measure up to 4 mm. There is also focal narrowing of the intervening vertebral artery at this level, best seen on axial image #257. A short segment dissection is not excluded. Subclavian arteries: Widely patent bilaterally. Intracranial vasculature: There are bilateral posterior communicating arteries. The internal carotid arteries are patent at the skull base, as are the anterior and middle cerebral arteries bilaterally. The vertebrobasilar system and posterior cerebral arteries are widely patent. The left vertebral artery is dominant. There is no aneurysm, high-grade stenosis, or focal vessel cut off seen throughout the intracranial circulation. Jugular veins: Patent bilaterally. Dural sinuses: Patent. Lung apices: Partially visualized upper lobe lung parenchyma appears clear. Soft tissues: The visualized pharyngeal soft tissues are normal in appearance noting angiographic phase technique. The oropharyngeal airway appears widely patent. The salivary and thyroid glands are normal in appearance. No cervical lymphadenopathy is seen. Skeletal structures: The calvarium appears intact. The cervical spine is within normal limits. Orbits: The bony orbits are intact. Orbital contents are normal as visualized. Sinuses and mastoids: The paranasal sinuses are clear. The mastoid air cells are well pneumatized. IMPRESSION: 1. There is no hemorrhage, mass effect, or evidence of acute territorial ischemia by CT criteria. 2. Unremarkable CT angiogram of the brain. 3. There is a beaded appearance with 2 saccular outpouchings of the distal cervical portion of the right vertebral artery at C2. The outpouching measure up to 4 mm. These may represent small aneurysms, or this could be seen with fibromuscular dysplasia. There is focal narrowing of the right vertebral artery between the outpouchings at this level such that a small dissection is not excluded. 4. Otherwise unremarkable CT angiogram of the neck. Electronically signed by: Manny Neely M.D. 10/14/2022 12:05 PM PG Care Time/CCT Total # of Minutes Spent Total Time Spent with Patient: Total time spent is greater than 50% in coordination of care (as documented) at patient's floor/unit and/or counseling patient: Coding Level of Care Code INT OBSERVATION CARE 70M LVL 3 Diagnoses TIA (transient ischemic attack) G45.9 Acute facial pain R51.9 Zoster B02.9
[2022-10-14 13:27] LABS: Adenovirus PCR Not Detected (NotDetected); Bordetella parapertussis PCR Not Detected (NotDetected); Bordetella pertussis PCR Not Detected (NotDetected); Chlamydia pneumoniae PCR Not Detected (NotDetected); Coronavirus 229E PCR Not Detected (NotDetected); Coronavirus CoV-2 (COVID19)PCR Not Detected (NotDetected); Coronavirus HKU1 PCR Not Detected (NotDetected); Coronavirus NL63 PCR Not Detected (NotDetected); Coronavirus OC43PCR Not Detected (NotDetected); Human Metapneumovirus PCR Not Detected (NotDetected); Influenza A PCR Not Detected (NotDetected); Influenza B PCR Not Detected (NotDetected); Mycoplasma pneumoniae PCR Not Detected (NotDetected); Parainfluenza Virus 1 PCR Not Detected (NotDetected); Parainfluenza Virus 2 PCR Not Detected (NotDetected); Parainfluenza Virus 3 PCR Not Detected (NotDetected); Parainfluenza Virus 4 PCR Not Detected (NotDetected); Respiratory Syncytial VirusPCR Not Detected (NotDetected); Rhinovirus/Enterovirus PCR Not Detected (NotDetected)
[2022-10-14] MEDS ORDERED: HYDROmorphone INJ 1 MG/ML SYRINGE IV STA (14:29)
[2022-10-14] MEDS ORDERED: GABAPENTIN 100 MG CAP PO ONE ×2 (14:45→16:00)
[2022-10-14] MEDS ORDERED: ALUMINUM/MAGNESIUM SUSP 30 ML UDC PO PRN (15:42)
[2022-10-14] MEDS ORDERED: hydrALAZINE HCL 20 MG/ML VIAL IV PRN (15:42)
[2022-10-14] MEDS ORDERED: ONDANSETRON INJ 2 MG/ML 2 ML VIAL IV PRN (15:42)
[2022-10-14] MEDS: GABAPENTIN 100 MG CAP PO SCH ×2 (16:41→19:47)
--- NOTE | 2022-10-14 16:44 | Neurology Consultation ---
Date of Consultation October 14, 2022 Assessment & Plan (1) Stroke-like symptoms: Impression: The patient has been having constellation of neurological symptoms including left facial numbness, now left hemiparesthesia, left ankle dorsiflexion weakness, short lasting facial asymmetry during grimacing, abnormal tongue protrusion, episodes of stuttering type speech difficulty, reported confusional episodes, with inconsistencies during physical examination, suggestive of functional etiology. However, we need to rule out central nervous system vascular and infectious pathologies. Recommendations: I agree with keeping patient on aspirin 81 mg and Lipitor for now. Brain MRI with and without contrast. Neurological monitoring. The patient's symptoms persist, or if he see any brain MRI abnormality to suggest meningitis or encephalitis, we will proceed with spinal tap and CSF investigation. Telemetry monitoring Lipid panel We will follow patient's with you. (2) Shingles: Impression: The patient was diagnosed with shingles involving scalp in trigeminal nerve distribution which has been treated on valacyclovir and steroid. Skin lesions has been improving but pain persist. Recommendations: Treatment of postherpetic neuralgia on gabapentin. We should start gabapentin 100 mg 3 times a day, with further titration of dosage as needed. We should limit use of narcotic analgesics. Completion of valacyclovir and steroid treatment which was started a week ago. (3) Acute facial pain: Impression: This is most likely due to postherpetic neuralgia. (4) Vertebral artery aneurysm: Impression: There was a beaded appearance with 2 saccular outpouching of the distal cervical portion of the right vertebral artery, measuring up to 4 mm. This may represent small aneurysm but also could be seen with fibromuscular dysplasia. At this level, small dissection is not excluded. These are incidental findings and likely not related to patient's current symptoms. Recommendations: We will keep the patient on aspirin and Lipitor. Outpatient follow-up with interventional radiology. Plan Thank you for the consultation. History of Present Illness Reason for Consultation: Facial droop, asymmetric tongue protrusion, facial numbness, confusional episodes Requesting Physician: Serge Gilliland MD Attending Physician: Serge Gilliland MD History of Present Illness The patient is a 42-year-old female, who presented emergency department with left facial pain, rash, and recent speech disturbance. She was diagnosed with left facial and scalp shingles on of this month, and was started on valacyclovir as well as steroid. Today, she was seen by her primary care physician, and was referred to emergency department after the patient had an episode of speech difficulty with concern of left facial droop. 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 This episode was again short lasting. In emergency department, the patient was tearful, and clutching the left side of her face. Code stroke was activated, and the patient was evaluated by teleneurology, and their impression was not suggestive of acute cerebrovascular accident, with high suspicion of functional component. The patient had a head CT, CT angiogram of head and neck, which did not show hemodynamically significant stenosis or acute intracranial pathology but vertebral artery showed small outpouching, suggestive of saccular aneurysm versus fibromuscular dysplasia. The patient was started on aspirin and Lipitor based on atypical symptoms. Initially, she was complained of severe facial and left occipital headache, and was treated on Vicodin as well as low-dose gabapentin. When I arrived to the emergency department, the patient was resting comfortably. During physical examination, there was some inconsistencies. The patient describes a decreased sensation on left side of face, left upper and lower extremities. Even though initially was not reported, physical examination reveals that the patient cannot dorsiflex left ankle. She has shown inte rmittent, stuttering type speech pattern. There was no physical examination findings to suggest meningismus. Left facial and scalp shingles have been dried since initial diagnosis. The patient describes some hypersensitivity at the same location. There is no other cranial nerve symptoms. The patient will be admitted to hospital for further monitoring and investigation. I have reviewed the patient's chart including imaging studies and visualized them personally. I have discussed the case with emergency department physician. Allergies Allergy/AdvReac Type Severity Reaction Status Date / Time hydrocodone [From Vicodin] Allergy Intermediate ITCHY Verified 10/14/22 15:01 RASH, RESTLESSNESS levofloxacin [From Levaquin] Allergy Intermediate ITCHY Verified 10/14/22 15:01 RASH, RESTLESSNESS oxycodone [From Percocet] Allergy Intermediate ITCHY Verified 10/14/22 15:01 RASH, RESTLESSNESS Home Medications Medication Instructions Recorded Confirmed Type estradiol 0.5 mg tablet 0.5 mg PO DAILY 10/06/22 10/14/22 History lisdexamfetamine 60 mg capsule 60 mg PO DAILY 10/06/22 10/14/22 History (Vyvanse) pantoprazole 40 mg tablet,delayed 40 mg PO HS 10/06/22 10/14/22 History release zolpidem 10 mg tablet (Ambien) 10 mg PO HS PRN Sleep 10/06/22 10/14/22 History paroxetine HCl 40 mg tablet 40 mg PO HS 10/14/22 10/14/22 History prednisone 50 mg tablet 50 mg PO DAILY 10/14/22 10/14/22 History tizanidine 2 mg tablet 2 mg PO DIRECTED PRN MUSCLE 10/14/22 10/14/22 History SPASMS valacyclovir 1 gram tablet 1 mg PO TID 10/14/22 10/14/22 History Patient History Medical History Absence, ovary, 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 HEENT: Normal exam with inspection other than skin discoloration with healing vesicles at frontal and temporal scalp. Otoscopy did not show ear canal lesions. Normal looking ear drum. CV: Hearth rhythm is regular. Neck: Supple, no carotid bruits. Lungs: Non-labored and comfortable breathing. Abdomen: Soft, non-tender, non-distended. Skin: No rash or ecchymosis other than scalp lesions as described above. Extremities: No edema or cyanosis NEUROLOGICAL EXAMINATION: Mental Status: Alert and oriented to place, person and time. Cranial Nerves: II-XII are intact. No nystagmus. Funduscopy: Normal looking optic discs. Motor: 5/5 in all extremities except left ankle dorsiflexion is 2-/5. Tone: Normal without spasticity or rigidity. DTRs: 2+ all. No Babinski Sensory: The patient reports decreased sensation on the left side of face and left upper and lower extremities to all sensory modalities. Coordination: No dysmetria with FTN testing. Speech: Fluent. Comprehension is intact. Intermittent atypical stuttering is noticed. Gait: Not assessed Musculoskeletal: Normal muscle bulk, no atrophy. Results & Data ([facility]) Vital Signs (Past 12 Hours) Vital Signs Temp Pulse Pulse Resp BP BP Pulse Ox 10/14/22 14:30 75 13 97 10/14/22 14:30 150/102 H 10/14/22 14:00 77 17 97 10/14/22 14:00 150/95 H 10/14/22 13:30 75 16 10/14/22 13:30 171/114 H 10/14/22 13:11 170/116 H 10/14/22 13:11 83 16 99 10/14/22 13:00 67 10 L 10/14/22 12:30 70 17 10/14/22 12:00 87 18 100 10/14/22 12:00 186/112 H 10/14/22 11:45 77 24 100 10/14/22 11:45 177/110 H 10/14/22 11:44 82 16 100 10/14/22 11:15 90 13 10/14/22 11:14 102 H 18 10/14/22 11:30 37.2 C 115 H 22 165/105 H 99 10/14/22 11:30 10/14/22 11:04 37.2 C 115 H 22 165/105 H 99 O2 Del Method 10/14/22 14:30 10/14/22 14:30 10/14/22 14:00 10/14/22 14:00 10/14/22 13:30 10/14/22 13:30 10/14/22 13:11 10/14/22 13:11 10/14/22 13:00 10/14/22 12:30 10/14/22 12:00 10/14/22 12:00 10/14/22 11:45 10/14/22 11:45 10/14/22 11:44 10/14/22 11:15 10/14/22 11:14 10/14/22 11:30 Room Air 10/14/22 11:30 Room Air 10/14/22 11:04 Room Air Laboratory Results Laboratory Results - last 24 hr 10/14/22 10/14/22 10/14/22 11:21 11:21 11:25 WBC 9.51 RBC 5.36 H Hgb 15.5 Hct 45.7 H MCV 85.3 MCH 28.9 MCHC 33.9 RDW Std Deviation 38.7 RDW Coeff of Sheryl 12.6 Plt Count 427 H MPV 9.7 Immature Gran % (Auto) 0.2 Neut % (Auto) 69.1 Lymph % (Auto) 21.0 [place] % (Auto) 7.4 Eos % (Auto) 1.5 Baso % (Auto) 0.8 Neut # (Auto) 6.57 H Lymph # (Auto) 2.00 [place] # (Auto) 0.70 Eos # (Auto) 0.14 Baso # (Auto) 0.08 Immature Gran # (Auto) 0.02 PT 10.3 INR 1.0 APTT 27.9 PTT Ratio 1.0 Sodium 138 Potassium 4.3 Chloride 102 Carbon Dioxide 29 Anion Gap 7 BUN 11 Creatinine 0.65 Est Cr Clr Drug Dosing Not Reportable Est GFR ( Amer) 126.9 Est GFR (Non-Af Amer) 109.5 BUN/Creatinine Ratio 16.9 Glucose 125 H Calcium 9.6 Magnesium Total Bilirubin 0.3 AST 16 ALT 26 Alkaline Phosphatase 83 Troponin I High Sens Total Protein 7.5 Albumin 4.2 Globulin 3.3 Albumin/Globulin Ratio 1.3 Adenovirus (PCR) B. pertussis DNA (PCR) B.parapertussis DNA PCR C. pneumoniae DNA (PCR) Coronavirus OC43 (PCR) Coronavirus HKU1 (PCR) Coronavirus 229E (PCR) SARS-CoV-2 (PCR) Coronavirus NL63 (PCR) Human Metapneumovir PCR Influenza Type A (PCR) Influenza Type B (PCR) M. pneumoniae (PCR) Parainfluenza 1 (PCR) Parainfluenza 2 (PCR) Parainfluenza 3 (PCR) Parainfluenza 4 (PCR) RSV (PCR) Entero/Rhino (PCR) 10/14/22 10/14/22 11:25 12:18 WBC RBC Hgb Hct MCV MCH MCHC RDW Std Deviation RDW Coeff of Sheryl Plt Count MPV Immature Gran % (Auto) Neut % (Auto) Lymph % (Auto) [place] % (Auto) Eos % (Auto) Baso % (Auto) Neut # (Auto) Lymph # (Auto) [place] # (Auto) Eos # (Auto) Baso # (Auto) Immature Gran # (Auto) PT INR APTT PTT Ratio Sodium Potassium Chloride Carbon Dioxide Anion Gap BUN Creatinine Est Cr Clr Drug Dosing Est GFR ( Amer) Est GFR (Non-Af Amer) BUN/Creatinine Ratio Glucose Calcium Magnesium 2.3 Total Bilirubin AST ALT Alkaline Phosphatase Troponin I High Sens 10.4 D Total Protein Albumin Globulin Albumin/Globulin Ratio Adenovirus (PCR) Not Detected B. pertussis DNA (PCR) Not Detected B.parapertussis DNA PCR Not Detected C. pneumoniae DNA (PCR) Not Detected Coronavirus OC43 (PCR) Not Detected Coronavirus HKU1 (PCR) Not Detected Coronavirus 229E (PCR) Not Detected SARS-CoV-2 (PCR) Not Detected Coronavirus NL63 (PCR) Not Detected Human Metapneumovir PCR Not Detected Influenza Type A (PCR) Not Detected Influenza Type B (PCR) Not Detected M. pneumoniae (PCR) Not Detected Parainfluenza 1 (PCR) Not Detected Parainfluenza 2 (PCR) Not Detected Parainfluenza 3 (PCR) Not Detected Parainfluenza 4 (PCR) Not Detected RSV (PCR) Not Detected Entero/Rhino (PCR) Not Detected Diagnostic Findings Head CT 10/14/22 11:[address] OF THE BRAIN; CT ANGIOGRAM OF THE BRAIN; CT ANGIOGRAM OF THE NECK CLINICAL HISTORY: Strokelike symptoms. Slurred speech. COMPARISON STUDY: CT of the brain dated 10/06/2022. MRI and MR angiogram of the brain dated 10/06/2022. TECHNIQUE: Unenhanced axial CT scan of the brain is performed. Subsequently, following the IV administration of 114 of Optiray 320, CT angiogram of the head and neck was performed from the aortic arch to the vertex. Images are reviewed in the axial, sagittal, and coronal planes. 3-D MIPS images are created and assessed. IV contrast was administered without complication. All measurements were calculated based on NASCET criteria. A dose lowering technique was utilized adhering to the principles of ALARA. CT DOSE: 1068.23 mGy.cm FINDINGS: Brain parenchyma: The brain parenchyma is normal in appearance. There is no hemorrhage, mass effect, or evidence of acute territorial ischemia by CT criteria. There is no evidence of enhancing mass lesion on the angiogram phase images. The ventricles, sulci, and cisterns are normal in configuration. Chavez- white matter differentiation is preserved. No extra-axial fluid collection is seen. Thoracic aorta: Visualized portions of the thoracic aorta are normal in caliber. The aortic arch demonstrates standard 3-vessel anatomy. Right carotid arterial system: The right common carotid artery is widely patent, as are the right internal and external carotid arteries. Left carotid arterial system: The left common carotid artery is widely patent, as are the left internal and external carotid arteries. Vertebral arteries: The vertebral arteries are patent bilaterally noting left- sided dominance. There is a beaded appearance with 2 saccular outpouchings arising from the distal right vertebral artery at the level of C2 seen on images #249 and #258. These measure up to 4 mm. There is also focal narrowing of the intervening vertebral artery at this level, best seen on axial image #257. A short segment dissection is not excluded. Subclavian arteries: Widely patent bilaterally. Intracranial vasculature: There are bilateral posterior communicating arteries. The internal carotid arteries are patent at the skull base, as are the anterior and middle cerebral arteries bilaterally. The vertebrobasilar system and posterior cerebral arteries are widely patent. The left vertebral artery is dominant. There is no aneurysm, high-grade stenosis, or focal vessel cut off seen throughout the intracranial circulation. Jugular veins: Patent bilaterally. Dural sinuses: Patent. Lung apices: Partially visualized upper lobe lung parenchyma appears clear. Soft tissues: The visualized pharyngeal soft tissues are normal in appearance noting angiographic phase technique. The oropharyngeal airway appears widely patent. The salivary and thyroid glands are normal in appearance. No cervical lymphadenopathy is seen. Skeletal structures: The calvarium appears intact. The cervical spine is within normal limits. Orbits: The bony orbits are intact. Orbital contents are normal as visualized. Sinuses and mastoids: The paranasal sinuses are clear. The mastoid air cells are well pneumatized. IMPRESSION: 1. There is no hemorrhage, mass effect, or evidence of acute territorial ischemia by CT criteria. 2. Unremarkable CT angiogram of the brain. 3. There is a beaded appearance with 2 saccular outpouchings of the distal cervical portion of the right vertebral artery at C2. The outpouching measure up to 4 mm. These may represent small aneurysms, or this could be seen with fibromuscular dysplasia. There is focal narrowing of the right vertebral artery between the outpouchings at this level such that a small dissection is not excluded. 4. Otherwise unremarkable CT angiogram of the neck. ACT 112: Negative or not required by law. Electronically signed by: Manny Neely M.D. 10/14/2022 12:05 PM Head CTA 10/14/22 11:[address] OF THE BRAIN; CT ANGIOGRAM OF THE BRAIN; CT ANGIOGRAM OF THE NECK CLINICAL HISTORY: Strokelike symptoms. Slurred speech. COMPARISON STUDY: CT of the brain dated 10/06/2022. MRI and MR angiogram of the brain dated 10/06/2022. TECHNIQUE: Unenhanced axial CT scan of the brain is performed. Subsequently, following the IV administration of 114 of Optiray 320, CT angiogram of the head and neck was performed from the aortic arch to the vertex. Images are reviewed in the axial, sagittal, and coronal planes. 3-D MIPS images are created and assessed. IV contrast was administered without complication. All measurements were calculated based on NASCET criteria. A dose lowering technique was utilized adhering to the principles of ALARA. CT DOSE: 1068.23 mGy.cm FINDINGS: Brain parenchyma: The brain parenchyma is normal in appearance. There is no hemorrhage, mass effect, or evidence of acute territorial ischemia by CT criteria. There is no evidence of enhancing mass lesion on the angiogram phase images. The ventricles, sulci, and cisterns are normal in configuration. Chavez- white matter differentiation is preserved. No extra-axial fluid collection is seen. Thoracic aorta: Visualized portions of the thoracic aorta are normal in caliber. The aortic arch demonstrates standard 3-vessel anatomy. Right carotid arterial system: The right common carotid artery is widely patent, as are the right internal and external carotid arteries. Left carotid arterial system: The left common carotid artery is widely patent, as are the left internal and external carotid arteries. Vertebral arteries: The vertebral arteries are patent bilaterally noting left- sided dominance. There is a beaded appearance with 2 saccular outpouchings arising from the distal right vertebral artery at the level of C2 seen on images #249 and #258. These measure up to 4 mm. There is also focal narrowing of the intervening vertebral artery at this level, best seen on axial image #257. A short segment dissection is not excluded. Subclavian arteries: Widely patent bilaterally. Intracranial vasculature: There are bilateral posterior communicating arteries. The internal carotid arteries are patent at the skull base, as are the anterior and middle cerebral arteries bilaterally. The vertebrobasilar system and posterior cerebral arteries are widely patent. The left vertebral artery is dominant. There is no aneurysm, high-grade stenosis, or focal vessel cut off seen throughout the intracranial circulation. Jugular veins: Patent bilaterally. Dural sinuses: Patent. Lung apices: Partially visualized upper lobe lung parenchyma appears clear. Soft tissues: The visualized pharyngeal soft tissues are normal in appearance noting angiographic phase technique. The oropharyngeal airway appears widely patent. The salivary and thyroid glands are normal in appearance. No cervical lymphadenopathy is seen. Skeletal structures: The calvarium appears intact. The cervical spine is within normal limits. Orbits: The bony orbits are intact. Orbital contents are normal as visualized. Sinuses and mastoids: The paranasal sinuses are clear. The mastoid air cells are well pneumatized. IMPRESSION: 1. There is no hemorrhage, mass effect, or evidence of acute territorial ischemia by CT criteria. 2. Unremarkable CT angiogram of the brain. 3. There is a beaded appearance with 2 saccular outpouchings of the distal cervical portion of the right vertebral artery at C2. The outpouching measure up to 4 mm. These may represent small aneurysms, or this could be seen with fibromuscular dysplasia. There is focal narrowing of the right vertebral artery between the outpouchings at this level such that a small dissection is not excluded. 4. Otherwise unremarkable CT angiogram of the neck. ACT 112: Negative or not required by law. Electronically signed by: Manny Neely M.D. 10/14/2022 12:05 PM Neck CTA 10/14/22 11:[address] OF THE BRAIN; CT ANGIOGRAM OF THE BRAIN; CT ANGIOGRAM OF THE NECK CLINICAL HISTORY: Strokelike symptoms. Slurred speech. COMPARISON STUDY: CT of the brain dated 10/06/2022. MRI and MR angiogram of the brain dated 10/06/2022. TECHNIQUE: Unenhanced axial CT scan of the brain is performed. Subsequently, following the IV administration of 114 of Optiray 320, CT angiogram of the head and neck was performed from the aortic arch to the vertex. Images are reviewed in the axial, sagittal, and coronal planes. 3-D MIPS images are created and assessed. IV contrast was administered without complication. All measurements were calculated based on NASCET criteria. A dose lowering technique was utilized adhering to the principles of ALARA. CT DOSE: 1068.23 mGy.cm FINDINGS: Brain parenchyma: The brain parenchyma is normal in appearance. There is no hemorrhage, mass effect, or evidence of acute territorial ischemia by CT criteria. There is no evidence of enhancing mass lesion on the angiogram phase images. The ventricles, sulci, and cisterns are normal in configuration. Chavez- white matter differentiation is preserved. No extra-axial fluid collection is seen. Thoracic aorta: Visualized portions of the thoracic aorta are normal in caliber. The aortic arch demonstrates standard 3-vessel anatomy. Right carotid arterial system: The right common carotid artery is widely patent, as are the right internal and external carotid arteries. Left carotid arterial system: The left common carotid artery is widely patent, as are the left internal and external carotid arteries. Vertebral arteries: The vertebral arteries are patent bilaterally noting left- sided dominance. There is a beaded appearance with 2 saccular outpouchings arising from the distal right vertebral artery at the level of C2 seen on images #249 and #258. These measure up to 4 mm. There is also focal narrowing of the intervening vertebral artery at this level, best seen on axial image #257. A short segment dissection is not excluded. Subclavian arteries: Widely patent bilaterally. Intracranial vasculature: There are bilateral posterior communicating arteries. The internal carotid arteries are patent at the skull base, as are the anterior and middle cerebral arteries bilaterally. The vertebrobasilar system and posterior cerebral arteries are widely patent. The left vertebral artery is dominant. There is no aneurysm, high-grade stenosis, or focal vessel cut off seen throughout the intracranial circulation. Jugular veins: Patent bilaterally. Dural sinuses: Patent. Lung apices: Partially visualized upper lobe lung parenchyma appears clear. Soft tissues: The visualized pharyngeal soft tissues are normal in appearance noting angiographic phase technique. The oropharyngeal airway appears widely patent. The salivary and thyroid glands are normal in appearance. No cervical lymphadenopathy is seen. Skeletal structures: The calvarium appears intact. The cervical spine is within normal limits. Orbits: The bony orbits are intact. Orbital contents are normal as visualized. Sinuses and mastoids: The paranasal sinuses are clear. The mastoid air cells are well pneumatized. IMPRESSION: 1. There is no hemorrhage, mass effect, or evidence of acute territorial ischemia by CT criteria. 2. Unremarkable CT angiogram of the brain. 3. There is a beaded appearance with 2 saccular outpouchings of the distal cervical portion of the right vertebral artery at C2. The outpouching measure up to 4 mm. These may represent small aneurysms, or this could be seen with fi bromuscular dysplasia. There is focal narrowing of the right vertebral artery between the outpouchings at this level such that a small dissection is not excluded. 4. Otherwise unremarkable CT angiogram of the neck. ACT 112: Negative or not required by law. Electronically signed by: Manny Neely M.D. 10/14/2022 12:05 PM
[2022-10-14] MEDS: oxyCODONE HCL IR 5 MG TAB (IMMEDIATE RELEASE) PO PRN (16:50)
[2022-10-14] MEDS: ASPIRIN 81 MG ECTAB PO SCH (16:51)
[2022-10-14] MEDS: HEPARIN SOD 5,000 UNIT/0.5 ML VIAL SQ SCH ×2 (17:34→23:57)
[2022-10-14] MEDS: HYDROmorphone INJ 1 MG/ML SYRINGE IV PRN ×2 (19:42→23:57)
[2022-10-14] MEDS ORDERED: valACYclovir HCL 500 MG TABLET PO SCH (21:00)
[2022-10-14] MEDS: ZOLPIDEM TARTRATE 10 MG TAB PO PRN (21:24)
--- NOTE | 2022-10-15 00:07 | Electrocardiogram Report ---
Test Reason : Blood Pressure : / mmHG Vent. Rate : 094 BPM Atrial Rate : 094 BPM P-R Int : 136 ms QRS Dur : 072 ms QT Int : 364 ms P-R-T Axes : 050 010 049 degrees QTc Int : 455 ms Poor data quality, interpretation may be adversely affected Normal sinus rhythm Minimal voltage criteria for LVH, may be normal variant Borderline ECG When compared with ECG of 06-OCT-2022 10:03, No significant change was found Confirmed by Bautista Hernandez ([id number]) on 10/15/2022 12:06:43 AM Referred By: Marta Hardy Confirmed By:Bautista Hernandez
[2022-10-15] MEDS: oxyCODONE HCL IR 5 MG TAB (IMMEDIATE RELEASE) PO PRN (06:36)
[2022-10-15 06:44] LABS: Hematocrit (blood only) 43.8 % (34.1-44.9); Hemoglobin 15.1 g/dl (12.0-16.0); Mean Corpuscular Hemoglobin 29.2 pg (25.0-34.0); Mean Corpuscular Hgb Conc 34.5 g/dL (32.0-36.0); Mean Corpuscular Volume 84.6 fL (80.0-100.0); Mean Platelet Volume 9.6 fL (9.4-12.3); Platelet Count 413 K/uL (130-400); RDW Coefficient of Variation 12.5 % (11.5-14.5); RDW Standard Deviation 37.8 fL (36.4-46.3); Red Blood Count 5.18 M/uL (3.93-5.22); White Blood Count 12.76 K/ul (4.8-10.8)
[2022-10-15 07:02] LABS: Anion Gap 6 (3-11); Blood Urea Nitrogen 20 mg/dl (6-23); Calcium 9.3 mg/dl (8.5-10.1); Carbon Dioxide 30 mmol/L (21-32); Chloride 102 mmol/L (98-107); Est GFR (African American) 124.4 ml/min; Est GFR (Non-African American) 107.4 ml/min; Glucose 111 mg/dl (70-99(Fasting)); Potassium 3.8 mmol/L (3.5-5.1); Sodium 138 mmol/L (136-145)
[2022-10-15 07:59] LABS: Chol HDL Ratio 4.3 (0-5)
[2022-10-15] MEDS: GABAPENTIN 100 MG CAP PO SCH ×3 (08:08→20:54)
[2022-10-15] MEDS: PANTOprazole 40 MG TAB PO SCH (08:09)
[2022-10-15] MEDS: ATORVASTATIN 40 MG TAB PO SCH (08:09)
[2022-10-15] MEDS: HEPARIN SOD 5,000 UNIT/0.5 ML VIAL SQ SCH ×3 (08:10→23:38)
[2022-10-15] MEDS: valACYclovir HCL 500 MG TABLET PO SCH ×3 (08:12→20:55)
[2022-10-15] MEDS: ASPIRIN 81 MG ECTAB PO SCH (10:27)
[2022-10-15] MEDS: HYDROmorphone INJ 0.5 MG/0.5 ML SYR IV PRN ×2 (10:27→16:03)
[2022-10-15] MEDS ORDERED: HYDROCODONE/ACETAMOPHEN 5/325MG TAB PO PRN (13:18)
--- NOTE | 2022-10-15 13:21 | Hospitalist Progress Note ---
Date of Service October 15, 2022 Assessment & Plan (1) TIA (transient ischemic attack): Plan: with left lateral nerve palsy , +/- left sided weakness on exam, left hemisensory deficits that are coming and going since admission Neurology consultation appreciated-suspect somewhat functional in nature MRI brain negative for stroke or tumor CT angiogram head and neck with small 4 mm right vertebral saccular outpouchings-needs follow-up with interventional neuroradiology as an outpatient Continue aspirin and high intensity statin for now Lipid panel acceptable, hemoglobin A1c pending Continue neurochecks, stroke scale daily -Plan for LP tomorrow to look for [employer] herpes zoster (2) Acute facial pain: Plan: -Pain still not well controlled -increase gabapentin to 200mg po tid for postherpetic neuralgia. -Discontinue oxycodone as it makes her feel hypersensitive to noise -Trial of tramadol 50 Mg p.o. every 4 hours as needed moderate to severe pain -Continue IV Dilaudid for severe breakthrough pain not amenable to tramadol (3) Zoster: Plan: Continue valacyclovir but increase dose to 3 times daily to finish out 10-day c ourse Checking LP tomorrow May need IV acyclovir Follow CBC in the morning however leukocytosis secondary to steroids No steroids further to be given Pain control as above (4) Vertebral artery aneurysm: Plan: As above Plan DVT prophylaxis Heparin SQ Disposition-continued stay on medical floor telemetry Admission and Anticipated Discharge Date Admission Date: October 14, 2022 Subjective Patient continues to have at times severe left-sided facial and scalp pain down into her left jaw. Also complains of intermittent difficulty with word finding and speaking, anxious at times. Also intermittent left arm and left leg numbness and weakness coming and going lasting a few minutes at a time. I discussed her care with neurology. Review of Systems Review of Systems: All systems reviewed & are unremarkable except as noted in HPI & below Physical Exam Constitutional: WD/WN, vitals as above Appears anxious Eyes: PERRL, conjunctivae normal, anicteric sclerae + EOM not intact (Left lateral gaze palsy) With associated blurry vision with left lateral gaze ENMT: external ear and nose normal, oropharynx normal Neck: trachea midline, no thyromegaly Respiratory: normal respiratory effort, lungs clear to auscultation Cardiovascular: RRR, no murmur, no edema Chest (Breasts): Chest: normal inspection of chest Gastrointestinal (Abdomen): normal bowel sounds, soft, nontender, no hepatosplenomegaly Musculoskeletal: Extremities: extremities normal to inspection; no cyanosis and no clubbing Skin: + lesion (Multiple scabbed over erythematous lesions left face, preauricular regions) Neurologic: CN's II-XI intact bilaterally, deep tendon reflexes 2+ bilaterally, + focal motor deficit (Some inconsistent 4+/5 strength LUE and LLE, otherwise 5/5 throughout) and awake; not confused Speech / Cognition: + abnormal speech (Initially mild dysarthria, resolved within 1 minute) Motor/Sensory: + sensory deficit (Decreased sensation to light touch LUE and LLE); no tremor Psychiatric: Orientation: alert, oriented x 3 and cooperative Affect: + anxious affect Lymphatic: no lymphedema Results & Data Results & Data ([facility]) Vital Signs (Past 12 Hours) Vital Signs Temp Pulse Resp BP Pulse Ox O2 Del Method 10/15/22 12:30 36.7 C 80 19 132/81 97 Room Air 10/15/22 08:04 36.9 C 77 19 133/86 98 Room Air 10/15/22 04:00 36.9 C 80 20 126/76 94 Room Air Laboratory Results 10/15/22 10/15/22 10/15/22 Range/Units 06:06 06:06 06:06 WBC (4.8-10.8) K/ul RBC (3.93-5.22) M/uL Hgb (12.0-16.0) g/dl Hct (34.1-44.9) % MCV (80.0-100.0) fL MCH (25.0-34.0) pg MCHC (32.0-36.0) g/dL RDW Std Deviation (36.4-46.3) fL RDW Coeff of Sheryl (11.5-14.5) % Plt Count (130-400) K/uL MPV (9.4-12.3) fL Sodium 138 (136-145) mmol/L Potassium 3.8 (3.5-5.1) mmol/L Chloride 102 (98-107) mmol/L Carbon Dioxide 30 (21-32) mmol/L Anion Gap 6 (3-11) BUN 20 (6-23) mg/dl Creatinine 0.69 (0.6-1.2) mg/dl Est Cr Clr Drug Dosing Not Reportable Est GFR ( Amer) 124.4 ml/min Est GFR (Non-Af Amer) 107.4 ml/min BUN/Creatinine Ratio 29.0 H (10-20) Glucose 111 H (70-99(Fasting)) mg/dl Estimat Average Glucose Pending Hemoglobin A1c Pending Calcium 9.3 (8.5-10.1) mg/dl Triglycerides 217 H (0-150) mg/dl Cholesterol 217 H (0-200) mg/dl LDL Cholesterol, Calc 124 mg/dl VLDL Cholesterol, Calc 43 H (0-30) mg/dl HDL Cholesterol 50 mg/dl Cholesterol/HDL Ratio 4.3 (0-5) 10/15/22 Range/Units 06:06 WBC 12.76 H (4.8-10.8) K/ul RBC 5.18 (3.93-5.22) M/uL Hgb 15.1 (12.0-16.0) g/dl Hct 43.8 (34.1-44.9) % MCV 84.6 (80.0-100.0) fL MCH 29.2 (25.0-34.0) pg MCHC 34.5 (32.0-36.0) g/dL RDW Std Deviation 37.8 (36.4-46.3) fL RDW Coeff of Sheryl 12.5 (11.5-14.5) % Plt Count 413 H (130-400) K/uL MPV 9.6 (9.4-12.3) fL Sodium (136-145) mmol/L Potassium (3.5-5.1) mmol/L Chloride (98-107) mmol/L Carbon Dioxide (21-32) mmol/L Anion Gap (3-11) BUN (6-23) mg/dl Creatinine (0.6-1.2) mg/dl Est Cr Clr Drug Dosing Est GFR ( Amer) ml/min Est GFR (Non-Af Amer) ml/min BUN/Creatinine Ratio (10-20) Glucose (70-99(Fasting)) mg/dl Estimat Average Glucose Hemoglobin A1c Calcium (8.5-10.1) mg/dl Triglycerides (0-150) mg/dl Cholesterol (0-200) mg/dl LDL Cholesterol, Calc mg/dl VLDL Cholesterol, Calc (0-30) mg/dl HDL Cholesterol mg/dl Cholesterol/HDL Ratio (0-5) Diagnostic Findings Brain MRI 10/15/22 12:07 MRI OF THE BRAIN COMBO CLINICAL HISTORY: Left-sided weakness. Facial droop. Sensory deficits. COMPARISON STUDY: CT of the brain dated 10/14/2022. MRI of the brain dated 10/06/2022. TECHNIQUE: MRI of the brain was performed utilizing various T1 and T2-weighted sequences in the axial, sagittal, and coronal planes. Contrast-enhanced sequences were acquired following the administration of 8 cc of Gadavist. FINDINGS: Brain parenchyma: The brain parenchyma is normal in appearance. There is no hemorrhage or mass effect. There is no restricted diffusion to suggest acute ischemia. No enhancing mass lesion is identified on the postcontrast images. Chavez-white matter differentiation is preserved. No extra-axial fluid collection is seen. The cerebellar tonsils are normal in configuration. Ventricles, sulci, and cisterns: Normal in configuration. Pituitary and sella: Unremarkable. Intracranial vasculature: Normal flow voids are maintained at the skull base. Orbits: The bony orbits are grossly intact. Orbital contents are normal in appearance. Sinuses and mastoids: Clear. Calvarium: Unremarkable. Cervical cord: Partially visualized cervical spinal cord is normal in morphology and signal intensity. IMPRESSION: No acute intracranial abnormality. ACT 112: Negative or not required by law. Electronically signed by: Manny Neely M.D. 10/15/2022 2:21 PM PG Care Time/CCT Total # of Minutes Spent Total Time Spent with Patient: Total time spent is greater than 50% in coordination of care (as documented) at patient's floor/unit and/or counseling patient: Coding Level of Care Code 24217 Subseq Hosp Care Lvl 3 Diagnoses TIA (transient ischemic attack) G45.9 Acute facial pain R51.9 Zoster B02.9 Vertebral artery aneurysm I72.6
[2022-10-15] MEDS ORDERED: GABAPENTIN 100 MG CAP PO ONE (13:45)
[2022-10-15] MEDS ORDERED: GADOBUTROL 10ML VIAL IV ONE (13:51)
--- NOTE | 2022-10-15 14:23 | Magnetic Resonance Report ---
MRI OF THE BRAIN COMBO CLINICAL HISTORY: Left-sided weakness. Facial droop. Sensory deficits. COMPARISON STUDY: CT of the brain dated 10/14/2022. MRI of the brain dated 10/06/2022. TECHNIQUE: MRI of the brain was performed utilizing various T1 and T2-weighted sequences in the axial , sagittal, and coronal planes. Contrast-enhanced sequences were acquired following the administratio n of 8 cc of Gadavist. FINDINGS: Brain parenchyma: The brain parenchyma is normal in appearance. There is no hemorrhage or mass effect . There is no restricted diffusion to suggest acute ischemia. No enhancing mass lesion is identified on the postcontrast images. Chavez-white matter differentiation is preserved. No extra-axial fluid lise ection is seen. The cerebellar tonsils are normal in configuration. Ventricles, sulci, and cisterns: Normal in configuration. Pituitary and sella: Unremarkable. Intracranial vasculature: Normal flow voids are maintained at the skull base. Orbits: The bony orbits are grossly intact. Orbital contents are normal in appearance. Sinuses and mastoids: Clear. Calvarium: Unremarkable. Cervical cord: Partially visualized cervical spinal cord is normal in morphology and signal intensity . IMPRESSION: No acute intracranial abnormality. ACT 112: Negative or not required by law. Electronically signed by: Manny Neely M.D. 10/15/2022 2:21 PM
[2022-10-15] MEDS: traMADol HCL 50 MG TABLET PO PRN (14:55)
--- NOTE | 2022-10-15 15:05 | Neurology Progress Note ---
Date of Service October 15, 2022 Assessment & Plan (1) Stroke-like symptoms: Plan: Impression: The patient has been having constellation of neurological symptoms including left facial numbness, left hemiparesthesia, short lasting facial asymmetry during grimacing, abnormal tongue protrusion, episodes of stuttering type speech difficulty, reported confusional episodes, and new left eye abduction partial limitation with improvement during distraction and inconsis tencies during physical examination, suggestive of functional etiology. Brain MRI with and without contrast did not show cerebrovascular accident, inflammatory process, or other acute pathology. Nevertheless, because of persistent symptoms, and new left eye gaze limitation we will proceed with spinal tap to rule out CAMPAIGN MANAGEMENT SENIOR MANAGER infectious process. Recommendations: I agree with keeping patient on aspirin 81 mg and Lipitor. Brain MRI with and without contrast.--reviewed -- Lumbar puncture under fluoroscopy. CSF work-up including cell counts with differential in tube 1 and 3, protein, glucose, and bio fire. ESR and CRP. We will complete treatment on valacyclovir and prednisone up to 10 days. If CSF studies show no abnormality, then the patient can be discharged home, preferably tomorrow. Follow-up with neurology clinic. (2) Shingles: Plan: Impression: The patient was diagnosed with shingles involving scalp in trigeminal nerve distribution which has been treated on valacyclovir and steroid. Skin lesions has been improving but pain persist. Recommendations: Treatment of postherpetic neuralgia on gabapentin. We should gradually titrate dosage up, for symptom control. We should limit use of narcotic analgesics. Completion of valacyclovir and steroid treatment which was started a week ago. (3) Acute facial pain: Plan: Impression: This is most likely due to postherpetic neuralgia. (4) Vertebral artery aneurysm: Plan: Impression: There was a beaded appearance with 2 saccular outpouching of the distal cervical portion of the right vertebral artery, measuring up to 4 mm. This may represent small aneurysm but also could be seen with fibromuscular dysplasia. At this level, small dissection is not excluded. These are incidental findings and likely not related to patient's current symptoms. Recommendations: We will keep the patient on aspirin and Lipitor. Outpatient follow-up with interventional radiology. Admission and Anticipated Discharge Date Admission Date: October 14, 2022 Subjective The patient has been comfortable and resting, eating and sleeping well. She still complains of old left-sided hemiparesthesia/numbness, and the left frontal scalp tenderness/pain. She reports that left ankle dorsiflexion weakness is a chronic problem. She can ambulate without difficulty. However, during examination, she reported left eye blurred vision, and left eye abduction was limited. Repeated examination with distraction did not reveal left eye restrictive movement. The patient has been afebrile. Gabapentin was increased because of persistent pain. Brain MRI with and without contrast was normal. Based on persistent symptoms, and new left eye intermittent abduction limitation, we will proceed with spinal tap, to rule out inflammatory process. The patient is in agreement with this recommendation. Review of Systems Review of Systems: All systems reviewed & are unremarkable except as noted in Subjective Physical Exam Physical Exam: General Examination: Constitutional: Well developed person in no acute distress. HEENT: Normal exam with inspection other than skin discoloration with healing vesicles at frontal and temporal scalp. Otoscopy did not show ear canal lesions. Normal looking ear drum. CV: Hearth rhythm is regular. Neck: Supple, no carotid bruits. Lungs: Non-labored and comfortable breathing. Abdomen: Soft, non-tender, non-distended. Skin: No rash or ecchymosis other than scalp lesions as described above. Extremities: No edema or cyanosis NEUROLOGICAL EXAMINATION: Mental Status: Alert and oriented to place, person and time. Cranial Nerves: II-XII are intact. No nystagmus. Intermittent left eye partial abduction limitation during left gaze is noticed. Improvement of left eye abduction with distraction is noticed. Funduscopy: Normal looking optic discs. Motor: 5/5 in all extremities except left ankle dorsiflexion is 2-/5. Tone: Normal without spasticity or rigidity. DTRs: 2+ all. No Babinski Sensory: The patient reports decreased sensation on the left side of face and left upper and lower extremities to all sensory modalities. Coordination: No dysmetria with FTN testing. Speech: Fluent. Comprehension is intact. Intermittent atypical stuttering is noticed. Gait: Not assessed Musculoskeletal: Normal muscle bulk, no atrophy. Results & Data ([facility]) Vital Signs (Past 12 Hours) Vital Signs Temp Pulse Pulse Resp BP Pulse Ox O2 Del Method 10/15/22 13:50 74 10/15/22 12:30 36.7 C 80 19 132/81 97 Room Air 10/15/22 08:04 36.9 C 77 19 133/86 98 Room Air 10/15/22 04:00 36.9 C 80 20 126/76 94 Room Air Laboratory Results Laboratory Results - last 24 hr 10/15/22 10/15/22 10/15/22 06:06 06:06 06:06 WBC 12.76 H RBC 5.18 Hgb 15.1 Hct 43.8 MCV 84.6 MCH 29.2 MCHC 34.5 RDW Std Deviation 37.8 RDW Coeff of Sheryl 12.5 Plt Count 413 H MPV 9.6 Sodium 138 Potassium 3.8 Chloride 102 Carbon Dioxide 30 Anion Gap 6 BUN 20 Creatinine 0.69 Est Cr Clr Drug Dosing Not Reportable Est GFR ( Amer) 124.4 Est GFR (Non-Af Amer) 107.4 BUN/Creatinine Ratio 29.0 H Glucose 111 H Estimat Average Glucose Pending Hemoglobin A1c Pending Calcium 9.3 Triglycerides Cholesterol LDL Cholesterol, Calc VLDL Cholesterol, Calc HDL Cholesterol Cholesterol/HDL Ratio 10/15/22 06:06 WBC RBC Hgb Hct MCV MCH MCHC RDW Std Deviation RDW Coeff of Sheryl Plt Count MPV Sodium Potassium Chloride Carbon Dioxide Anion Gap BUN Creatinine Est Cr Clr Drug Dosing Est GFR ( Amer) Est GFR (Non-Af Amer) BUN/Creatinine Ratio Glucose Estimat Average Glucose Hemoglobin A1c Calcium Triglycerides 217 H Cholesterol 217 H LDL Cholesterol, Calc 124 VLDL Cholesterol, Calc 43 H HDL Cholesterol 50 Cholesterol/HDL Ratio 4.[address] 10/14/22 11:[address] OF THE BRAIN; CT ANGIOGRAM OF THE BRAIN; CT ANGIOGRAM OF THE NECK CLINICAL HISTORY: Strokelike symptoms. Slurred speech. COMPARISON STUDY: CT of the brain dated 10/06/2022. MRI and MR angiogram of the brain dated 10/06/2022. TECHNIQUE: Unenhanced axial CT scan of the brain is performed. Subsequently, following the IV administration of 114 of Optiray 320, CT angiogram of the head and neck was performed from the aortic arch to the vertex. Images are reviewed in the axial, sagittal, and coronal planes. 3-D MIPS images are created and assessed. IV contrast was administered without complication. All measurements were calculated based on NASCET criteria. A dose lowering technique was utilized adhering to the principles of ALARA. CT DOSE: 1068.23 mGy.cm FINDINGS: Brain parenchyma: The brain parenchyma is normal in appearance. There is no hemorrhage, mass effect, or evidence of acute territorial ischemia by CT criteria. There is no evidence of enhancing mass lesion on the angiogram phase images. The ventricles, sulci, and cisterns are normal in configuration. Chavez- white matter differentiation is preserved. No extra-axial fluid collection is seen. Thoracic aorta: Visualized portions of the thoracic aorta are normal in caliber. The aortic arch demonstrates standard 3-vessel anatomy. Right carotid arterial system: The right common carotid artery is widely patent, as are the right internal and external carotid arteries. Left carotid arterial system: The left common carotid artery is widely patent, as are the left internal and external carotid arteries. Vertebral arteries: The vertebral arteries are patent bilaterally noting left- sided dominance. There is a beaded appearance with 2 saccular outpouchings arising from the distal right vertebral artery at the level of C2 seen on images #249 and #258. These measure up to 4 mm. There is also focal narrowing of the intervening vertebral artery at this level, best seen on axial image #257. A short segment dissection is not excluded. Subclavian arteries: Widely patent bilaterally. Intracranial vasculature: There are bilateral posterior communicating arteries. The internal carotid arteries are patent at the skull base, as are the anterior and middle cerebral arteries bilaterally. The vertebrobasilar system and posterior cerebral arteries are widely patent. The left vertebral artery is dominant. There is no aneurysm, high-grade stenosis, or focal vessel cut off seen throughout the intracranial circulation. Jugular veins: Patent bilaterally. Dural sinuses: Patent. Lung apices: Partially visualized upper lobe lung parenchyma appears clear. Soft tissues: The visualized pharyngeal soft tissues are normal in appearance noting angiographic phase technique. The oropharyngeal airway appears widely patent. The salivary and thyroid glands are normal in appearance. No cervical ly mphadenopathy is seen. Skeletal structures: The calvarium appears intact. The cervical spine is within normal limits. Orbits: The bony orbits are intact. Orbital contents are normal as visualized. Sinuses and mastoids: The paranasal sinuses are clear. The mastoid air cells are well pneumatized. IMPRESSION: 1. There is no hemorrhage, mass effect, or evidence of acute territorial ischemi a by CT criteria. 2. Unremarkable CT angiogram of the brain. 3. There is a beaded appearance with 2 saccular outpouchings of the distal cervical portion of the right vertebral artery at C2. The outpouching measure up to 4 mm. These may represent small aneurysms, or this could be seen with fibromuscular dysplasia. There is focal narrowing of the right vertebral artery between the outpouchings at this level such that a small dissection is not excluded. 4. Otherwise unremarkable CT angiogram of the neck. ACT 112: Negative or not required by law. Electronically signed by: Manny Neely M.D. 10/14/2022 12:05 PM Head CTA 10/14/22 11:[address] OF THE BRAIN; CT ANGIOGRAM OF THE BRAIN; CT ANGIOGRAM OF THE NECK CLINICAL HISTORY: Strokelike symptoms. Slurred speech. COMPARISON STUDY: CT of the brain dated 10/06/2022. MRI and MR angiogram of the brain dated 10/06/2022. TECHNIQUE: Unenhanced axial CT scan of the brain is performed. Subsequently, following the IV administration of 114 of Optiray 320, CT angiogram of the head and neck was performed from the aortic arch to the vertex. Images are reviewed in the axial, sagittal, and coronal planes. 3-D MIPS images are created and assessed. IV contrast was administered without complication. All measurements were calculated based on NASCET criteria. A dose lowering technique was ut ilized adhering to the principles of ALARA. CT DOSE: 1068.23 mGy.cm FINDINGS: Brain parenchyma: The brain parenchyma is normal in appearance. There is no hemorrhage, mass effect, or evidence of acute territorial ischemia by CT criteria. There is no evidence of enhancing mass lesion on the angiogram phase images. The ventricles, sulci, and cisterns are normal in configuration. Chavez- white matter differentiation is preserved. No extra-axial fluid collection is seen. Thoracic aorta: Visualized portions of the thoracic aorta are normal in caliber. The aortic arch demonstrates standard 3-vessel anatomy. Right carotid arterial system: The right common carotid artery is widely patent, as are the right internal and external carotid arteries. Left carotid arterial system: The left common carotid artery is widely patent, as are the left internal and external carotid arteries. Vertebral arteries: The vertebral arteries are patent bilaterally noting left- sided dominance. There is a beaded appearance with 2 saccular outpouchings arising from the distal right vertebral artery at the level of C2 seen on images #249 and #258. These measure up to 4 mm. There is also focal narrowing of the intervening vertebral artery at this level, best seen on axial image #257. A short segment dissection is not excluded. Subclavian arteries: Widely patent bilaterally. Intracranial vasculature: There are bilateral posterior communicating arteries. The internal carotid arteries are patent at the skull base, as are the anterior and middle cerebral arteries bilaterally. The vertebrobasilar system and posterior cerebral arteries are widely patent. The left vertebral artery is dominant. There is no aneurysm, high-grade stenosis, or focal vessel cut off seen throughout the intracranial circulation. Jugular veins: Patent bilaterally. Dural sinuses: Patent. Lung apices: Partially visualized upper lobe lung parenchyma appears clear. Soft tissues: The visualized pharyngeal soft tissues are normal in appearance noting angiographic phase technique. The oropharyngeal airway appears widely patent. The salivary and thyroid glands are normal in appearance. No cervical lymphadenopathy is seen. Skeletal structures: The calvarium appears intact. The cervical spine is within normal limits. Orbits: The bony orbits are intact. Orbital contents are normal as visualized. Sinuses and mastoids: The paranasal sinuses are clear. The mastoid air cells are well pneumatized. IMPRESSION: 1. There is no hemorrhage, mass effect, or evidence of acute territorial ischemia by CT criteria. 2. Unremarkable CT angiogram of the brain. 3. There is a beaded appearance with 2 saccular outpouchings of the distal cervical portion of the right vertebral artery at C2. The outpouching measure up to 4 mm. These may represent small aneurysms, or this could be seen with fibromuscular dysplasia. There is focal narrowing of the right vertebral artery between the outpouchings at this level such that a small dissection is not excluded. 4. Otherwise unremarkable CT angiogram of the neck. ACT 112: Negative or not required by law. Electronically signed by: Manny Neely M.D. 10/14/2022 12:05 PM Neck CTA 10/14/22 11:[address] OF THE BRAIN; CT ANGIOGRAM OF THE BRAIN; CT ANGIOGRAM OF THE NECK CLINICAL HISTORY: Strokelike symptoms. Slurred speech. COMPARISON STUDY: CT of the brain dated 10/06/2022. MRI and MR angiogram of the brain dated 10/06/2022. TECHNIQUE: Unenhanced axial CT scan of the brain is performed. Subsequently, f ollowing the IV administration of 114 of Optiray 320, CT angiogram of the head and neck was performed from the aortic arch to the vertex. Images are reviewed in the axial, sagittal, and coronal planes. 3-D MIPS images are created and assessed. IV contrast was administered without complication. All measurements were calculated based on NASCET criteria. A dose lowering technique was utilized adhering to the principles of ALARA. CT DOSE: 1068.23 mGy.cm FINDINGS: Brain parenchyma: The brain parenchyma is normal in appearance. There is no hemorrhage, mass effect, or evidence of acute territorial ischemia by CT criteria. There is no evidence of enhancing mass lesion on the angiogram phase images. The ventricles, sulci, and cisterns are normal in configuration. Chavez- white matter differentiation is preserved. No extra-axial fluid collection is seen. Thoracic aorta: Visualized portions of the thoracic aorta are normal in caliber. The aortic arch demonstrates standard 3-vessel anatomy. Right carotid arterial system: The right common carotid artery is widely patent, as are the right internal and external carotid arteries. Left carotid arterial system: The left common carotid artery is widely patent, as are the left internal and external carotid arteries. Vertebral arteries: The vertebral arteries are patent bilaterally noting left- sided dominance. There is a beaded appearance with 2 saccular outpouchings arising from the distal right vertebral artery at the level of C2 seen on images #249 and #258. These measure up to 4 mm. There is also focal narrowing of the intervening vertebral artery at this level, best seen on axial image #257. A short segment dissection is not excluded. Subclavian arteries: Widely patent bilaterally. Intracranial vasculature: There are bilateral posterior communicating arteries. The internal carotid arteries are patent at the skull base, as are the anterior and middle cerebral arteries bilaterally. The vertebrobasilar system and po sterior cerebral arteries are widely patent. The left vertebral artery is dominant. There is no aneurysm, high-grade stenosis, or focal vessel cut off seen throughout the intracranial circulation. Jugular veins: Patent bilaterally. Dural sinuses: Patent. Lung apices: Partially visualized upper lobe lung parenchyma appears clear. Soft tissues: The visualized pharyngeal soft tissues are normal in appearance noting angiographic phase technique. The oropharyngeal airway appears widely patent. The salivary and thyroid glands are normal in appearance. No cervical lymphadenopathy is seen. Skeletal structures: The calvarium appears intact. The cervical spine is within normal limits. Orbits: The bony orbits are intact. Orbital contents are normal as visualized. Sinuses and mastoids: The paranasal sinuses are clear. The mastoid air cells are well pneumatized. IMPRESSION: 1. There is no hemorrhage, mass effect, or evidence of acute territorial ischemia by CT criteria. 2. Unremarkable CT angiogram of the brain. 3. There is a beaded appearance with 2 saccular outpouchings of the distal cervical portion of the right vertebral artery at C2. The outpouching measure up to 4 mm. These may represent small aneurysms, or this could be seen with fibromuscular dysplasia. There is focal narrowing of the right vertebral artery between the outpouchings at this level such that a small dissection is not excluded. 4. Otherwise unremarkable CT angiogram of the neck. ACT 112: Negative or not required by law. Electronically signed by: Manny Neely M.D. 10/14/2022 12:05 PM Brain MRI 10/15/22 12:07 MRI OF THE BRAIN COMBO CLINICAL HISTORY: Left-sided weakness. Facial droop. Sensory deficits. COMPARISON STUDY: CT of the brain dated 10/14/2022. MRI of the brain dated 10/06/2022. TECHNIQUE: MRI of the brain was performed utilizing various T1 and T2-weighted sequences in the axial, sagittal, and coronal planes. Contrast-enhanced sequences were acquired following the administration of 8 cc of Gadavist. FINDINGS: Brain parenchyma: The brain parenchyma is normal in appearance. There is no hemorrhage or mass effect. There is no restricted diffusion to suggest acute ischemia. No enhancing mass lesion is identified on the postcontrast images. Chavez-white matter differentiation is preserved. No extra-axial fluid collection is seen. The cerebellar tonsils are normal in configuration. Ventricles, sulci, and cisterns: Normal in configuration. Pituitary and sella: Unremarkable. Intracranial vasculature: Normal flow voids are maintained at the skull base. Orbits: The bony orbits are grossly intact. Orbital contents are normal in appearance. Sinuses and mastoids: Clear. Calvarium: Unremarkable. Cervical cord: Partially visualized cervical spinal cord is normal in morphology and signal intensity. IMPRESSION: No acute intracranial abnormality. ACT 112: Negative or not required by law. Electronically signed by: Manny Neely M.D. 10/15/2022 2:21 PM (1) Shingles Herpes zoster complications: without complications Qualified Code(s): B02.9 - Zoster without complications
[2022-10-15] MEDS: HYDROmorphone INJ 1 MG/ML SYRINGE IV PRN (20:53)
[2022-10-16 07:04] LABS: Hematocrit (blood only) 46.2 % (34.1-44.9); Hemoglobin 15.1 g/dl (12.0-16.0); Mean Corpuscular Hemoglobin 28.6 pg (25.0-34.0); Mean Corpuscular Hgb Conc 32.7 g/dL (32.0-36.0); Mean Corpuscular Volume 87.5 fL (80.0-100.0); Mean Platelet Volume 9.4 fL (9.4-12.3); Platelet Count 343 K/uL (130-400); RDW Coefficient of Variation 12.6 % (11.5-14.5); RDW Standard Deviation 39.7 fL (36.4-46.3); Red Blood Count 5.28 M/uL (3.93-5.22); White Blood Count 14.73 K/ul (4.8-10.8)
[2022-10-16 07:28] LABS: Anion Gap 7 (3-11); BUN Creatinine Ratio 27.8 (10-20); Blood Urea Nitrogen 22 mg/dl (6-23); Calcium 8.9 mg/dl (8.5-10.1); Carbon Dioxide 28 mmol/L (21-32); Chloride 105 mmol/L (98-107); Est GFR (Non-African American) 92.3 ml/min; Glucose 103 mg/dl (70-99(Fasting)); Potassium 3.9 mmol/L (3.5-5.1); Sodium 140 mmol/L (136-145)
[2022-10-16 07:44] LABS: Estimated Average Glucose 126 mg/dl
[2022-10-16] MEDS: HYDROmorphone INJ 1 MG/ML SYRINGE IV PRN (08:26)
[2022-10-16] MEDS: PROCHLORPERAZINE 10 MG in SYRINGE 8 ML IV PRN ×2 (09:05→16:16)
[2022-10-16] MEDS: LACTATED RINGER'S 1,000 ML IV SCH ×2 (09:05→18:46)
[2022-10-16 11:18] LABS: Total Protein CSF 61.4 mg/dl (15-45)
[2022-10-16] MEDS: HEPARIN SOD 5,000 UNIT/0.5 ML VIAL SQ SCH ×2 (11:29→18:47)
[2022-10-16 11:56] LABS: Appearance CSF Clear; CSF Count Tube # 3; CSF Xanthrochromic No xanthochromia; Color CSF Colorless
--- NOTE | 2022-10-16 11:59 | Fluoroscopy Report ---
10/16/2022 10:43 AM [place] lumbar puncture diagnostic EXAMINATION: Fluoroscopic-guided lumbar puncture. CLINICAL HISTORY: Herpes Zoster, r/o PRINCIPAL CYBER ENGINEER infection PROCEDURE: After the technique, risks, alternatives, and benefits of the procedure were explained to the patient, signed consent was obtained. A confirmatory timeout was performed prior to initiation o f the procedure. A suitable puncture site at the L2-L3 level was obtained using fluoroscopy. The site was then cleaned and prepped in the usual sterile fashion. A total of 5 mL of 1% lidocaine was infu sed into the subcutaneous tissues during the procedure to achieve local anesthesia. Using a 20-gauge 3 1/2 inch spinal needle, the thecal sac was accessed under fluoroscopic guidance with the patient in the prone position. Approximately 8 mL of clear CSF was collected into four separate vials. The spin al needle with stylet in place was removed and pressure was placed over the puncture site until hemos tasis was achieved. There were no immediate complications. The patient tolerated the procedure well. IMPRESSION: Fluoroscopic guided lumbar puncture. Approximately 8 mL of clear CSF was collected into f our separate vials. No immediate complications. Fluoroscopy time: 1.5 minutes. ACT 112: Negative or not required by law. Electronically signed by: Robson Mleo M.D. 10/16/2022 11:58 AM
--- NOTE | 2022-10-16 12:19 | Hospitalist Progress Note ---
Date of Service October 16, 2022 Assessment & Plan (1) Herpes zoster meningitis: Plan: Admitted with severe left-sided facial and head pain, intermittent focal neurological deficits as below, with herpes zoster on the left trigeminal distribution Stroke work-up as below LP on 10/16 consistent with brisk pleocytosis, elevated total protein, and positive varicella on bio fire. Gram stain no organisms and culture pending. Glucose normal -Discontinue p.o. valacyclovir and convert to acyclovir 10 Mg/KG IV every 8 hours and plan for 2 to 3-week course -Appreciate infectious disease and neurology consultations -Pain control as below -Case management working on arranging home IV acyclovir, will need peripheral ultrasound-guided IV prior to discharge -Follow CBC, BMP -Follow final CSF culture result, Lyme serology on CSF, VDRL, EBV (2) TIA (transient ischemic attack): Plan: Presented with left lateral nerve palsy , +/- left sided weakness on exam, left hemisensory deficits, left facial droop and dysarthria that are coming and going since admission Seem to be improved for the most part on 10/16 Neurology consultation appreciated-now confirm given varicella meningitis as above that these deficits are secondary to partially functional, but also likely to varicella meningitis and involvement of cranial nerves. Infectious disease also suggest that there could be possible varicella vasc ulopathy involving both large and small arteries MRI brain negative for stroke or tumor CT angiogram head and neck with small 4 mm right vertebral saccular outpouchings-needs follow-up with interventional neuroradiology as an outpatient Continue aspirin and high intensity statin as per neurology given increased risk for stroke with possible vasculopathy and inflammation from varicella meningitis Lipid panel acceptable, hemoglobin A1c 6.0% Continue neurochecks, stroke scale daily (3) Nausea & vomiting: Plan: Secondary to pain and headache from herpes zoster Improved with IV Compazine, Zofran Start IV fluids due to persistent nausea and vomiting on the morning of 10/16 which is now improving If persistent, repeat head CT (4) Acute facial pain: Plan: -Pain still not well controlled -increase gabapentin again to 400 mg po tid for postherpetic neuralgia. Plan to titrate up to 600 Mg p.o. 3 times daily if possible -Discontinued oxycodone as it makes her feel hypersensitive to noise -Continue tramadol 50 Mg p.o. every 4 hours as needed moderate to severe pain, but hopefully can stop this as gabapentin is titrated upward -Continue IV Dilaudid for severe breakthrough pain not amenable to tramadol -Hopefully now that she is on IV acyclovir, her symptoms will start to improve more readily (5) Zoster: Plan: Was on valacyclovir but now converting IV acyclovir as above for meningitis Follow CBC in the morning however leukocytosis likely secondary to steroids No steroids further to be given Pain control as above (6) Vertebral artery aneurysm: Plan: As above Follow-up with interventional neuro radiology as an outpatient at [facility] Plan DVT prophylaxis Heparin SQ Disposition-continued stay on medical floor telemetry. Prior to discharge home, would aim for improved control with p.o. medications only of pain, resolution of nausea/vomiting, and case management needs to make arrangements for home IV acyclovir. Discussed her care at length today with infectious disease, neurology, and with family at the bedside. Overall spent about 60 minutes in prolonged service time in care of this patient. Admission and Anticipated Discharge Date Admission Date: October 14, 2022 Subjective Patient was having a lot of nausea with vomiting this morning as well as severe left-sided pain in the head. This all improved with IV Compazine as well as Dilaudid. She had her lumbar puncture which went well and did indeed show varicella meningitis. I saw her after the LP and she was feeling much better. Pain was controlled and she was resting. No further nausea. I discussed her care with the neurologist, infectious disease, and the patient's and mother at length. Tele with NSR and normal rates Review of Systems Review of Systems: All systems reviewed & are unremarkable except as noted in HPI & below Physical Exam Constitutional: WD/WN, vitals as above Eyes: PERRL, conjunctivae normal, anicteric sclerae EOM intact bilaterally (no further palsy) ENMT: external ear and nose normal, oropharynx normal Neck: trachea midline, no thyromegaly Respiratory: normal respiratory effort, lungs clear to auscultation Cardiovascular: RRR, no murmur, no edema Chest (Breasts): Chest: normal inspection of chest Gastrointestinal (Abdomen): normal bowel sounds, soft, nontender, no hepatosplenomegaly Musculoskeletal: Extremities: extremities normal to inspection; no cyanosis and no clubbing Skin: + lesion (Multiple scabbed over erythematous lesions left face, preauricular regions) Neurologic: CN's II-XI intact bilaterally, deep tendon reflexes 2+ bilaterally, + focal motor deficit (4+ strength in LUE and LLE,improved from yesterday) and awake; not confused Speech / Cognition: normal speech Psychiatric: Orientation: alert, oriented x 3 and cooperative Lymphatic: no lymphedema Results & Data Results & Data ([facility]) Vital Signs (Past 12 Hours) Vital Signs Temp Pulse Resp BP Pulse Ox O2 Del Method 10/16/22 10:48 36.6 C 81 18 136/90 94 Room Air 10/16/22 08:07 36.8 C 92 H 18 127/88 98 Room Air 10/16/22 03:30 36.8 C 70 18 137/91 97 Room Air 10/16/22 01:02 36.7 C 75 16 126/82 97 Room Air Laboratory Results 10/16/22 10/16/22 10/16/22 Range/Units 10:20 10:20 10:20 WBC (4.8-10.8) K/ul RBC (3.93-5.22) M/uL Hgb (12.0-16.0) g/dl Hct (34.1-44.9) % MCV (80.0-100.0) fL MCH (25.0-34.0) pg MCHC (32.0-36.0) g/dL RDW Std Deviation (36.4-46.3) fL RDW Coeff of Sheryl (11.5-14.5) % Plt Count (130-400) K/uL MPV (9.4-12.3) fL Sodium (136-145) mmol/L Potassium (3.5-5.1) mmol/L Chloride (98-107) mmol/L Carbon Dioxide (21-32) mmol/L Anion Gap (3-11) BUN (6-23) mg/dl Creatinine (0.6-1.2) mg/dl Est Cr Clr Drug Dosing Est GFR ( Amer) ml/min Est GFR (Non-Af Amer) ml/min BUN/Creatinine Ratio (10-20) Glucose (70-99(Fasting)) mg/dl Estimat Average Glucose mg/dl Hemoglobin A1c (4.5-5.6) % Calcium (8.5-10.1) mg/dl Triglycerides (0-150) mg/dl Cholesterol (0-200) mg/dl LDL Cholesterol, Calc mg/dl VLDL Cholesterol, Calc (0-30) mg/dl HDL Cholesterol mg/dl Cholesterol/HDL Ratio (0-5) Fld Lyme DNA (PCR) Cancelled Fluid Comment CSF Appearance CSF Color Xanthrochromic CSF WBC (0-5) CSF RBC (0-) CSF Cell Count Tube # CSF Mononuclear % Auto % CSF Polynuclear WBCs % CSF Chemistry Tube # CSF Glucose (40-70) mg/dl CSF Total Protein (15-45) mg/dl CSF VDRL Cancelled CSF C.neoform/gat PCR Not Detected (NotDetected) CSF CMV DNA (PCR) Not Detected (NotDetected) CSF Enterovirus (PCR) Not Detected (NotDetected) CSF E. coli K1 (PCR) Not Detected (NotDetected) CSF H. influenzae (PCR) Not Detected (NotDetected) CSF HSV I (PCR) Not Detected (NotDetected) CSF HSV II (PCR) Not Detected (NotDetected) CSF HHV 6 (PCR) Not Detected (NotDetected) CSF L.monocytogenes PCR Not Detected (NotDetected) CSF N. meningitidis PCR Not Detected (NotDetected) CSF Parechovirus (PCR) Not Detected (NotDetected) CSF S. agalactiae (PCR) Not Detected (NotDetected) CSF S. pneumoniae (PCR) Not Detected (NotDetected) CSF VZV DNA (PCR) DETECTED A* (NotDetected) Lyme Specimen Source Cancelled Lyme DNA Comment Cancelled EBV Source EBV DNA, Quant EBV DNA (PCR) 10/16/22 10/16/22 10/16/22 Range/Units 10:20 10:20 10:20 WBC (4.8-10.8) K/ul RBC (3.93-5.22) M/uL Hgb (12.0-16.0) g/dl Hct (34.1-44.9) % MCV (80.0-100.0) fL MCH (25.0-34.0) pg MCHC (32.0-36.0) g/dL RDW Std Deviation (36.4-46.3) fL RDW Coeff of Sheryl (11.5-14.5) % Plt Count (130-400) K/uL MPV (9.4-12.3) fL Sodium (136-145) mmol/L Potassium (3.5-5.1) mmol/L Chloride (98-107) mmol/L Carbon Dioxide (21-32) mmol/L Anion Gap (3-11) BUN (6-23) mg/dl Creatinine (0.6-1.2) mg/dl Est Cr Clr Drug Dosing Est GFR ( Amer) ml/min Est GFR (Non-Af Amer) ml/min BUN/Creatinine Ratio (10-20) Glucose (70-99(Fasting)) mg/dl Estimat Average Glucose mg/dl Hemoglobin A1c (4.5-5.6) % Calcium (8.5-10.1) mg/dl Triglycerides (0-150) mg/dl Cholesterol (0-200) mg/dl LDL Cholesterol, Calc mg/dl VLDL Cholesterol, Calc (0-30) mg/dl HDL Cholesterol mg/dl Cholesterol/HDL Ratio (0-5) Fld Lyme DNA (PCR) Pending Fluid Comment CSF Appearance Clear CSF Color Colorless Xanthrochromic No xanthochromia CSF WBC 49 H* (0-5) CSF RBC 50 (0-) CSF Cell Count Tube # 3 CSF Mononuclear % Auto 100.0 % CSF Polynuclear WBCs 0.0 % CSF Chemistry Tube # 1 CSF Glucose 64 (40-70) mg/dl CSF Total Protein 61.4 H (15-45) mg/dl CSF VDRL Pending CSF C.neoform/gat PCR (NotDetected) CSF CMV DNA (PCR) (NotDetected) CSF Enterovirus (PCR) (NotDetected) CSF E. coli K1 (PCR) (NotDetected) CSF H. influenzae (PCR) (NotDetected) CSF HSV I (PCR) (NotDetected) CSF HSV II (PCR) (NotDetected) CSF HHV 6 (PCR) (NotDetected) CSF L.monocytogenes PCR (NotDetected) CSF N. meningitidis PCR (NotDetected) CSF Parechovirus (PCR) (NotDetected) CSF S. agalactiae (PCR) (NotDetected) CSF S. pneumoniae (PCR) (NotDetected) CSF VZV DNA (PCR) (NotDetected) Lyme Specimen Source Pending Lyme DNA Comment EBV Source Pending EBV DNA, Quant Pending EBV DNA (PCR) Pending 10/16/22 10/16/22 10/15/22 Range/Units 06:42 06:42 06:06 WBC 14.73 H (4.8-10.8) K/ul RBC 5.28 H (3.93-5.22) M/uL Hgb 15.1 (12.0-16.0) g/dl Hct 46.2 H (34.1-44.9) % MCV 87.5 (80.0-100.0) fL MCH 28.6 (25.0-34.0) pg MCHC 32.7 (32.0-36.0) g/dL RDW Std Deviation 39.7 (36.4-46.3) fL RDW Coeff of Sheryl 12.6 (11.5-14.5) % Plt Count 343 (130-400) K/uL MPV 9.4 (9.4-12.3) fL Sodium 140 (136-145) mmol/L Potassium 3.9 (3.5-5.1) mmol/L Chloride 105 (98-107) mmol/L Carbon Dioxide 28 (21-32) mmol/L Anion Gap 7 (3-11) BUN 22 (6-23) mg/dl Creatinine 0.79 (0.6-1.2) mg/dl Est Cr Clr Drug Dosing Not Reportable Est GFR ( Amer) 107.0 ml/min Est GFR (Non-Af Amer) 92.3 ml/min BUN/Creatinine Ratio 27.8 H (10-20) Glucose 103 H (70-99(Fasting)) mg/dl Estimat Average Glucose mg/dl Hemoglobin A1c (4.5-5.6) % Calcium 8.9 (8.5-10.1) mg/dl Triglycerides 217 H (0-150) mg/dl Cholesterol 217 H (0-200) mg/dl LDL Cholesterol, Calc 124 mg/dl VLDL Cholesterol, Calc 43 H (0-30) mg/dl HDL Cholesterol 50 mg/dl Cholesterol/HDL Ratio 4.3 (0-5) Fld Lyme DNA (PCR) Fluid Comment CSF Appearance CSF Color Xanthrochromic CSF WBC (0-5) CSF RBC (0-) CSF Cell Count Tube # CSF Mononuclear % Auto % CSF Polynuclear WBCs % CSF Chemistry Tube # CSF Glucose (40-70) mg/dl CSF Total Protein (15-45) mg/dl CSF VDRL CSF C.neoform/gat PCR (NotDetected) CSF CMV DNA (PCR) (NotDetected) CSF Enterovirus (PCR) (NotDetected) CSF E. coli K1 (PCR) (NotDetected) CSF H. influenzae (PCR) (NotDetected) CSF HSV I (PCR) (NotDetected) CSF HSV II (PCR) (NotDetected) CSF HHV 6 (PCR) (NotDetected) CSF L.monocytogenes PCR (NotDetected) CSF N. meningitidis PCR (NotDetected) CSF Parechovirus (PCR) (NotDetected) CSF S. agalactiae (PCR) (NotDetected) CSF S. pneumoniae (PCR) (NotDetected) CSF VZV DNA (PCR) (NotDetected) Lyme Specimen Source Lyme DNA Comment EBV Source EBV DNA, Quant EBV DNA (PCR) 10/15/22 Range/Units 06:06 WBC (4.8-10.8) K/ul RBC (3.93-5.22) M/uL Hgb (12.0-16.0) g/dl Hct (34.1-44.9) % MCV (80.0-100.0) fL MCH (25.0-34.0) pg MCHC (32.0-36.0) g/dL RDW Std Deviation (36.4-46.3) fL RDW Coeff of Sheryl (11.5-14.5) % Plt Count (130-400) K/uL MPV (9.4-12.3) fL Sodium (136-145) mmol/L Potassium (3.5-5.1) mmol/L Chloride (98-107) mmol/L Carbon Dioxide (21-32) mmol/L Anion Gap (3-11) BUN (6-23) mg/dl Creatinine (0.6-1.2) mg/dl Est Cr Clr Drug Dosing Est GFR ( Amer) ml/min Est GFR (Non-Af Amer) ml/min BUN/Creatinine Ratio (10-20) Glucose (70-99(Fasting)) mg/dl Estimat Average Glucose 126 mg/dl Hemoglobin A1c 6.0 H (4.5-5.6) % Calcium (8.5-10.1) mg/dl Triglycerides (0-150) mg/dl Cholesterol (0-200) mg/dl LDL Cholesterol, Calc mg/dl VLDL Cholesterol, Calc (0-30) mg/dl HDL Cholesterol mg/dl Cholesterol/HDL Ratio (0-5) Fld Lyme DNA (PCR) Fluid Comment CSF Appearance CSF Color Xanthrochromic CSF WBC (0-5) CSF RBC (0-) CSF Cell Count Tube # CSF Mononuclear % Auto % CSF Polynuclear WBCs % CSF Chemistry Tube # CSF Glucose (40-70) mg/dl CSF Total Protein (15-45) mg/dl CSF VDRL CSF C.neoform/gat PCR (NotDetected) CSF CMV DNA (PCR) (NotDetected) CSF Enterovirus (PCR) (NotDetected) CSF E. coli K1 (PCR) (NotDetected) CSF H. influenzae (PCR) (NotDetected) CSF HSV I (PCR) (NotDetected) CSF HSV II (PCR) (NotDetected) CSF HHV 6 (PCR) (NotDetected) CSF L.monocytogenes PCR (NotDetected) CSF N. meningitidis PCR (NotDetected) CSF Parechovirus (PCR) (NotDetected) CSF S. agalactiae (PCR) (NotDetected) CSF S. pneumoniae (PCR) (NotDetected) CSF VZV DNA (PCR) (NotDetected) Lyme Specimen Source Lyme DNA Comment EBV Source EBV DNA, Quant EBV DNA (PCR) PG Care Time/CCT Total # of Minutes Spent Total Time Spent with Patient: Total time spent is greater than 50% in coordination of care (as documented) at patient's floor/unit and/or counseling patient: Prolonged Care Time Prolonged Care Time: Yes Total Prolonged Care Time: 60 Coding Level of Care Code 13414 Subseq Hosp Care Lvl 3 (25 - SIGNIFICANT, SEPARATELY IDENTIFIABLE ) Diagnoses Herpes zoster meningitis B02.1 TIA (transient ischemic attack) G45.9 Nausea & vomiting R11.2 Acute facial pain R51.9 Zoster B02.9 Vertebral artery aneurysm I72.6 Additional Codes Prolonged Care Time - Prolonged Care Time: Yes ([id number])
[2022-10-16 12:21] LABS: Cryptococcus neoformans/ga PCR Not Detected (NotDetected); Cytomegalovirus PCR Not Detected (NotDetected); Enterovirus PCR Not Detected (NotDetected); Escherichia coli K1 PCR Not Detected (NotDetected); Haemophilius influenzae PCR Not Detected (NotDetected); Herpes Simplex Virus 1 PCR Not Detected (NotDetected); Herpes Simplex Virus 2 PCR Not Detected (NotDetected); Human Herpes Virus 6 PCR Not Detected (NotDetected); Human Parechovirus PCR Not Detected (NotDetected); Listeria monocytogenes PCR Not Detected (NotDetected); Neisseria meningitidis PCR Not Detected (NotDetected); Streptococcus agalactiae PCR Not Detected (NotDetected); Streptococcus pneumoniae PCR Not Detected (NotDetected)
[2022-10-16 12:27] LABS: Varicella Zoster Virus PCR DETECTED (NotDetected)
[2022-10-16] MEDS: valACYclovir HCL 500 MG TABLET PO SCH (12:38)
[2022-10-16] MEDS: GABAPENTIN 100 MG CAP PO SCH ×3 (12:39→16:17)
[2022-10-16] MEDS: ASPIRIN 81 MG ECTAB PO SCH (12:39)
[2022-10-16] MEDS: PANTOprazole 40 MG TAB PO SCH (12:39)
[2022-10-16] MEDS: ATORVASTATIN 40 MG TAB PO SCH (12:39)
--- NOTE | 2022-10-16 14:26 | Neurology Progress Note ---
Date of Service October 16, 2022 Assessment & Plan (1) Herpes zoster meningitis: Plan: Impression: The patient was diagnosed with left facial and scalp shingles, which has been treated on oral valacyclovir and steroid. 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 Recommendations: We will titrate gabapentin dosage up gradually, first 400 mg every 8 hours, then 600 mg every 8 hours until controlling pain symptoms. Acyclovir IV, 10 to 15 mg/kg, every 8 hours, for next 10 to 14 days. Antinausea treatment as needed. Contact and droplet precautions. We will follow patient's with you. (2) Stroke-like symptoms: Plan: Impression: The patient has been having constellation of neurological symptoms including left facial numbness, left hemiparesthesia, short lasting facial asymmetry during grimacing, abnormal tongue protrusion, episodes of stuttering type speech difficulty, reported confusional episodes, and new left eye abduction partial limitation which were initially suggestive of at least partially functional, however, based on + CSF findings, such symptoms are likely due to VZV meningitis with involvement of cranial nerves. 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 Brain MRI with and without contrast.--reviewed (3) Shingles: Plan: Impression: The patient was diagnosed with shingles involving scalp in trigeminal nerve distribution which has been treated on valacyclovir and steroid. Skin lesions has been improving but pain persist. Recommendations: Treatment of postherpetic neuralgia on gabapentin. We should stop oral valacyclovir and prednisone, and will continue on IV acyclovir. (4) Acute facial pain: Plan: Impression: This is most likely due to postherpetic neuralgia. (5) Vertebral artery aneurysm: Plan: Impression: There was a beaded appearance with 2 saccular outpouching of the distal cervical portion of the right vertebral artery, measuring up to 4 mm. This may represent small aneurysm but also could be seen with fibromuscular dysplasia. At this level, small dissection is not excluded. These are incidental findings and likely not related to patient's current symptoms. Recommendations: We will keep the patient on aspirin and Lipitor. Outpatient follow-up with interventional radiology. Admission and Anticipated Discharge Date Admission Date: October 16, 2022 Subjective The patient still complains of headache, scalp tenderness, left occipital pain, which is partially controlled on gabapentin and other analgesic medications. She had spinal tap this morning, and resting at this time. She reported some nausea today. She still has left-sided hemiparesthesia, and left eye abduction limitation. CSF work-up was positive for herpes zoster virus infection, consistent with herpes zoster meningitis. Brain MRI did not show any cerebrovascular accident or inflammatory findings. Serum white blood cell is elevated, which is likely due to steroid. The patient has been afebrile. She denies any new neurological symptoms. CSF findings are explained to the patient. She understood that she should be treated with IV medication, for next 10 to 14 days. She is somewhat upset with this requirement, but happy with definitive diagnosis. The case is discussed with hospitalist physician who discussed the case with infectious disease specialist as well. Review of Systems Review of Systems: All systems reviewed & are unremarkable except as noted in Subjective Physical Exam Physical Exam: General Examination: Constitutional: Well developed person in no acute distress. HEENT: Normal exam with inspection other than skin discoloration with healing vesicles at frontal and temporal scalp. Otoscopy did not show ear canal lesions. Normal looking ear drum. CV: Hearth rhythm is regular. Neck: Supple, no carotid bruits. Lungs: Non-labored and comfortable breathing. Abdomen: Soft, non-tender, non-distended. Skin: No rash or ecchymosis other than scalp lesions as described above. Extremities: No edema or cyanosis NEUROLOGICAL EXAMINATION: Mental Status: Alert and oriented to place, person and time. Cranial Nerves: II-XII are intact. No nystagmus. Left eye partial abduction limitation during left gaze is noticed. Funduscopy: Not examined Motor: 5/5 in all extremities except left ankle dorsiflexion is 2-/5. Tone: Normal without spasticity or rigidity. DTRs: 2+ all. No Babinski Sensory: The patient reports decreased sensation on the left side of face and left upper and lower extremities. Coordination: No dysmetria with FTN testing. Speech: Fluent. Comprehension is intact. Intermittent atypical stuttering is noticed. Gait: Not assessed Musculoskeletal: Normal muscle bulk, no atrophy. Results & Data ([facility]) Vital Signs (Past 12 Hours) Vital Signs Temp Pulse Resp BP Pulse Ox O2 Del Method 10/16/22 10:48 36.6 C 81 18 136/90 94 Room Air 10/16/22 08:07 36.8 C 92 H 18 127/88 98 Room Air 10/16/22 03:30 36.8 C 70 18 137/91 97 Room Air Laboratory Results Laboratory Results - last 24 hr 10/15/22 10/15/22 10/16/22 06:06 06:06 06:42 WBC 14.73 H RBC 5.28 H Hgb 15.1 Hct 46.2 H MCV 87.5 MCH 28.6 MCHC 32.7 RDW Std Deviation 39.7 RDW Coeff of Sheryl 12.6 Plt Count 343 MPV 9.4 Sodium Potassium Chloride Carbon Dioxide Anion Gap BUN Creatinine Est Cr Clr Drug Dosing Est GFR ( Amer) Est GFR (Non-Af Amer) BUN/Creatinine Ratio Glucose Estimat Average Glucose 126 Hemoglobin A1c 6.0 H Calcium Triglycerides 217 H Cholesterol 217 H LDL Cholesterol, Calc 124 VLDL Cholesterol, Calc 43 H HDL Cholesterol 50 Cholesterol/HDL Ratio 4.3 Fld Lyme DNA (PCR) Fluid Comment CSF Appearance CSF Color Xanthrochromic CSF WBC CSF RBC CSF Cell Count Tube # CSF Mononuclear % Auto CSF Polynuclear WBCs CSF Chemistry Tube # CSF Glucose CSF Total Protein CSF VDRL CSF C.neoform/gat PCR CSF CMV DNA (PCR) CSF Enterovirus (PCR) CSF E. coli K1 (PCR) CSF H. influenzae (PCR) CSF HSV I (PCR) CSF HSV II (PCR) CSF HHV 6 (PCR) CSF L.monocytogenes PCR CSF N. meningitidis PCR CSF Parechovirus (PCR) CSF S. agalactiae (PCR) CSF S. pneumoniae (PCR) CSF VZV DNA (PCR) Lyme Specimen Source Lyme DNA Comment EBV Source EBV DNA, Quant EBV DNA (PCR) 10/16/22 10/16/22 10/16/22 06:42 10:20 10:20 WBC RBC Hgb Hct MCV MCH MCHC RDW Std Deviation RDW Coeff of Sheryl Plt Count MPV Sodium 140 Potassium 3.9 Chloride 105 Carbon Dioxide 28 Anion Gap 7 BUN 22 Creatinine 0.79 Est Cr Clr Drug Dosing Not Reportable Est GFR ( Amer) 107.0 Est GFR (Non-Af Amer) 92.3 BUN/Creatinine Ratio 27.8 H Glucose 103 H Estimat Average Glucose Hemoglobin A1c Calcium 8.9 Triglycerides Cholesterol LDL Cholesterol, Calc VLDL Cholesterol, Calc HDL Cholesterol Cholesterol/HDL Ratio Fld Lyme DNA (PCR) Pending Fluid Comment CSF Appearance CSF Color Xanthrochromic CSF WBC CSF RBC CSF Cell Count Tube # CSF Mononuclear % Auto CSF Polynuclear WBCs CSF Chemistry Tube # 1 CSF Glucose 64 CSF Total Protein 61.4 H CSF VDRL Pending CSF C.neoform/gat PCR CSF CMV DNA (PCR) CSF Enterovirus (PCR) CSF E. coli K1 (PCR) CSF H. influenzae (PCR) CSF HSV I (PCR) CSF HSV II (PCR) CSF HHV 6 (PCR) CSF L.monocytogenes PCR CSF N. meningitidis PCR CSF Parechovirus (PCR) CSF S. agalactiae (PCR) CSF S. pneumoniae (PCR) CSF VZV DNA (PCR) Lyme Specimen Source Pending Lyme DNA Comment EBV Source Pending EBV DNA, Quant Pending EBV DNA (PCR) Pending 10/16/22 10/16/22 10/16/22 10:20 10:20 10:20 WBC RBC Hgb Hct MCV MCH MCHC RDW Std Deviation RDW Coeff of Sheryl Plt Count MPV Sodium Potassium Chloride Carbon Dioxide Anion Gap BUN Creatinine Est Cr Clr Drug Dosing Est GFR ( Amer) Est GFR (Non-Af Amer) BUN/Creatinine Ratio Glucose Estimat Average Glucose Hemoglobin A1c Calcium Triglycerides Cholesterol LDL Cholesterol, Calc VLDL Cholesterol, Calc HDL Cholesterol Cholesterol/HDL Ratio Fld Lyme DNA (PCR) Cancelled Fluid Comment CSF Appearance Clear CSF Color Colorless Xanthrochromic No xanthochromia CSF WBC 49 H* CSF RBC 50 CSF Cell Count Tube # 3 CSF Mononuclear % Auto 100.0 CSF Polynuclear WBCs 0.0 CSF Chemistry Tube # CSF Glucose CSF Total Protein CSF VDRL Cancelled CSF C.neoform/gat PCR CSF CMV DNA (PCR) CSF Enterovirus (PCR) CSF E. coli K1 (PCR) CSF H. influenzae (PCR) CSF HSV I (PCR) CSF HSV II (PCR) CSF HHV 6 (PCR) CSF L.monocytogenes PCR CSF N. meningitidis PCR CSF Parechovirus (PCR) CSF S. agalactiae (PCR) CSF S. pneumoniae (PCR) CSF VZV DNA (PCR) Lyme Specimen Source Cancelled Lyme DNA Comment Cancelled EBV Source EBV DNA, Quant EBV DNA (PCR) 10/16/22 10:20 WBC RBC Hgb Hct MCV MCH MCHC RDW Std Deviation RDW Coeff of Sheryl Plt Count MPV Sodium Potassium Chloride Carbon Dioxide Anion Gap BUN Creatinine Est Cr Clr Drug Dosing Est GFR ( Amer) Est GFR (Non-Af Amer) BUN/Creatinine Ratio Glucose Estimat Average Glucose Hemoglobin A1c Calcium Triglycerides Cholesterol LDL Cholesterol, Calc VLDL Cholesterol, Calc HDL Cholesterol Cholesterol/HDL Ratio Fld Lyme DNA (PCR) Fluid Comment CSF Appearance CSF Color Xanthrochromic CSF WBC CSF RBC CSF Cell Count Tube # CSF Mononuclear % Auto CSF Polynuclear WBCs CSF Chemistry Tube # CSF Glucose CSF Total Protein CSF VDRL CSF C.neoform/gat PCR Not Detected CSF CMV DNA (PCR) Not Detected CSF Enterovirus (PCR) Not Detected CSF E. coli K1 (PCR) Not Detected CSF H. influenzae (PCR) Not Detected CSF HSV I (PCR) Not Detected CSF HSV II (PCR) Not Detected CSF HHV 6 (PCR) Not Detected CSF L.monocytogenes PCR Not Detected CSF N. meningitidis PCR Not Detected CSF Parechovirus (PCR) Not Detected CSF S. agalactiae (PCR) Not Detected CSF S. pneumoniae (PCR) Not Detected CSF VZV DNA (PCR) DETECTED A* Lyme Specimen Source Lyme DNA Comment EBV Source EBV DNA, Quant EBV DNA (PCR) Diagnostic Findings Head CT 10/14/22 11:[address] OF THE BRAIN; CT ANGIOGRAM OF THE BRAIN; CT ANGIOGRAM OF THE NECK CLINICAL HISTORY: Strokelike symptoms. Slurred speech. COMPARISON STUDY: CT of the brain dated 10/06/2022. MRI and MR angiogram of the brain dated 10/06/2022. TECHNIQUE: Unenhanced axial CT scan of the brain is performed. Subsequently, following the IV administration of 114 of Optiray 320, CT angiogram of the head and neck was performed from the aortic arch to the vertex. Images are reviewed in the axial, sagittal, and coronal planes. 3-D MIPS images are created and assessed. IV contrast was administered without complication. All measurements were calculated based on NASCET criteria. A dose lowering technique was utilized adhering to the principles of ALARA. CT DOSE: 1068.23 mGy.cm FINDINGS: Brain parenchyma: The brain parenchyma is normal in appearance. There is no hemorrhage, mass effect, or evidence of acute territorial ischemia by CT criteria. There is no evidence of enhancing mass lesion on the angiogram phase images. The ventricles, sulci, and cisterns are normal in configuration. Chavez- white matter differentiation is preserved. No extra-axial fluid collection is seen. Thoracic aorta: Visualized portions of the thoracic aorta are normal in caliber. The aortic arch demonstrates standard 3-vessel anatomy. Right carotid arterial system: The right common carotid artery is widely patent, as are the right internal and external carotid arteries. Left carotid arterial system: The left common carotid artery is widely patent, as are the left internal and external carotid arteries. Vertebral arteries: The vertebral arteries are patent bilaterally noting left- sided dominance. There is a beaded appearance with 2 saccular outpouchings arising from the distal right vertebral artery at the level of C2 seen on images #249 and #258. These measure up to 4 mm. There is also focal narrowing of the intervening vertebral artery at this level, best seen on axial image #257. A short segment dissection is not excluded. Subclavian arteries: Widely patent bilaterally. Intracranial vasculature: There are bilateral posterior communicating arteries. The internal carotid arteries are patent at the skull base, as are the anterior and middle cerebral arteries bilaterally. The vertebrobasilar system and posterior cerebral arteries are widely patent. The left vertebral artery is d ominant. There is no aneurysm, high-grade stenosis, or focal vessel cut off seen throughout the intracranial circulation. Jugular veins: Patent bilaterally. Dural sinuses: Patent. Lung apices: Partially visualized upper lobe lung parenchyma appears clear. Soft tissues: The visualized pharyngeal soft tissues are normal in appearance noting angiographic phase technique. The oropharyngeal airway appears widely patent. The salivary and thyroid glands are normal in appearance. No cervical lymphadenopathy is seen. Skeletal structures: The calvarium appears intact. The cervical spine is within normal limits. Orbits: The bony orbits are intact. Orbital contents are normal as visualized. Sinuses and mastoids: The paranasal sinuses are clear. The mastoid air cells are well pneumatized. IMPRESSION: 1. There is no hemorrhage, mass effect, or evidence of acute territorial ischemia by CT criteria. 2. Unremarkable CT angiogram of the brain. 3. There is a beaded appearance with 2 saccular outpouchings of the distal cervical portion of the right vertebral artery at C2. The outpouching measure up to 4 mm. These may represent small aneurysms, or this could be seen with fibro muscular dysplasia. There is focal narrowing of the right vertebral artery between the outpouchings at this level such that a small dissection is not excluded. 4. Otherwise unremarkable CT angiogram of the neck. ACT 112: Negative or not required by law. Electronically signed by: Manny Neely M.D. 10/14/2022 12:05 PM Head CTA 10/14/22 11:[address] OF THE BRAIN; CT ANGIOGRAM OF THE BRAIN; CT ANGIOGRAM OF THE NECK CLINICAL HISTORY: Strokelike symptoms. Slurred speech. COMPARISON STUDY: CT of the brain dated 10/06/2022. MRI and MR angiogram of the brain dated 10/06/2022. TECHNIQUE: Unenhanced axial CT scan of the brain is performed. Subsequently, following the IV administration of 114 of Optiray 320, CT angiogram of the head and neck was performed from the aortic arch to the vertex. Images are reviewed in the axial, sagittal, and coronal planes. 3-D MIPS images are created and assessed. IV contrast was administered without complication. All measurements were calculated based on NASCET criteria. A dose lowering technique was utilized adhering to the principles of ALARA. CT DOSE: 1068.23 mGy.cm FINDINGS: Brain parenchyma: The brain parenchyma is normal in appearance. There is no hemorrhage, mass effect, or evidence of acute territorial ischemia by CT criteria. There is no evidence of enhancing mass lesion on the angiogram phase images. The ventricles, sulci, and cisterns are normal in configuration. Chavez- white matter differentiation is preserved. No extra-axial fluid collection is seen. Thoracic aorta: Visualized portions of the thoracic aorta are normal in caliber. The aortic arch demonstrates standard 3-vessel anatomy. Right carotid arterial system: The right common carotid artery is widely patent, as are the right internal and external carotid arteries. Left carotid arterial system: The left common carotid artery is widely patent, as are the left internal and external carotid arteries. Vertebral arteries: The vertebral arteries are patent bilaterally noting left- sided dominance. There is a beaded appearance with 2 saccular outpouchings arising from the distal right vertebral artery at the level of C2 seen on images #249 and #258. These measure up to 4 mm. There is also focal narrowing of the intervening vertebral artery at this level, best seen on axial image #257. A short segment dissection is not excluded. Subclavian arteries: Widely patent bilaterally. Intracranial vasculature: There are bilateral posterior communicating arteries. The internal carotid arteries are patent at the skull base, as are the anterior and middle cerebral arteries bilaterally. The vertebrobasilar system and posterior cerebral arteries are widely patent. The left vertebral artery is dominant. There is no aneurysm, high-grade stenosis, or focal vessel cut off seen throughout the intracranial circulation. Jugular veins: Patent bilaterally. Dural sinuses: Patent. Lung apices: Partially visualized upper lobe lung parenchyma appears clear. Soft tissues: The visualized pharyngeal soft tissues are normal in appearance noting angiographic phase technique. The oropharyngeal airway appears widely patent. The salivary and thyroid glands are normal in appearance. No cervical lymphadenopathy is seen. Skeletal structures: The calvarium appears intact. The cervical spine is within normal limits. Orbits: The bony orbits are intact. Orbital contents are normal as visualized. Sinuses and mastoids: The paranasal sinuses are clear. The mastoid air cells are well pneumatized. IMPRESSION: 1. There is no hemorrhage, mass effect, or evidence of acute territorial ischemia by CT criteria. 2. Unremarkable CT angiogram of the brain. 3. There is a beaded appearance with 2 saccular outpouchings of the distal cervical portion of the right vertebral artery at C2. The outpouching measure up to 4 mm. These may represent small aneurysms, or this could be seen with fibromuscular dysplasia. There is focal narrowing of the right vertebral artery between the outpouchings at this level such that a small dissection is not excluded. 4. Otherwise unremarkable CT angiogram of the neck. ACT 112: Negative or not required by law. Electronically signed by: Manny Neely M.D. 10/14/2022 12:05 PM Neck CTA 10/14/22 11:[address] OF THE BRAIN; CT ANGIOGRAM OF THE BRAIN; CT ANGIOGRAM OF THE NECK CLINICAL HISTORY: Strokelike symptoms. Slurred speech. COMPARISON STUDY: CT of the brain dated 10/06/2022. MRI and MR angiogram of the brain dated 10/06/2022. TECHNIQUE: Unenhanced axial CT scan of the brain is performed. Subsequently, following the IV administration of 114 of Optiray 320, CT angiogram of the head and neck was performed from the aortic arch to the vertex. Images are reviewed in the axial, sagittal, and coronal planes. 3-D MIPS images are created and assessed. IV contrast was administered without complication. All measurements were calculated based on NASCET criteria. A dose lowering technique was utilized adhering to the principles of ALARA. CT DOSE: 1068.23 mGy.cm FINDINGS: Brain parenchyma: The brain parenchyma is normal in appearance. There is no hemorrhage, mass effect, or evidence of acute territorial ischemia by CT criteria. There is no evidence of enhancing mass lesion on the angiogram phase images. The ventricles, sulci, and cisterns are normal in configuration. Chavez- white matter differentiation is preserved. No extra-axial fluid collection is seen. Thoracic aorta: Visualized portions of the thoracic aorta are normal in caliber. The aortic arch demonstrates standard 3-vessel anatomy. Right carotid arterial system: The right common carotid artery is widely patent, as are the right internal and external carotid arteries. Left carotid arterial system: The left common carotid artery is widely patent, as are the left internal and external carotid arteries. Vertebral arteries: The vertebral arteries are patent bilaterally noting left- sided dominance. There is a beaded appearance with 2 saccular outpouchings arising from the distal right vertebral artery at the level of C2 seen on images #249 and #258. These measure up to 4 mm. There is also focal narrowing of the intervening vertebral artery at this level, best seen on axial image #257. A short segment dissection is not excluded. Subclavian arteries: Widely patent bilaterally. Intracranial vasculature: There are bilateral posterior communicating arteries. The internal carotid arteries are patent at the skull base, as are the anterior and middle cerebral arteries bilaterally. The vertebrobasilar system and posterior cerebral arteries are widely patent. The left vertebral artery is dominant. There is no aneurysm, high-grade stenosis, or focal vessel cut off seen throughout the intracranial circulation. Jugular veins: Patent bilaterally. Dural sinuses: Patent. Lung apices: Partially visualized upper lobe lung parenchyma appears clear. Soft tissues: The visualized pharyngeal soft tissues are normal in appearance noting angiographic phase technique. The oropharyngeal airway appears widely patent. The salivary and thyroid glands are normal in appearance. No cervical lymphadenopathy is seen. Skeletal structures: The calvarium appears intact. The cervical spine is within normal limits. Orbits: The bony orbits are intact. Orbital contents are normal as visualized. Sinuses and mastoids: The paranasal sinuses are clear. The mastoid air cells are well pneumatized. IMPRESSION: 1. There is no hemorrhage, mass effect, or evidence of acute territorial ischemia by CT criteria. 2. Unremarkable CT angiogram of the brain. 3. There is a beaded appearance with 2 saccular outpouchings of the distal cervical portion of the right vertebral artery at C2. The outpouching measure up to 4 mm. These may represent small aneurysms, or this could be seen with fibromuscular dysplasia. There is focal narrowing of the right vertebral artery between the outpouchings at this level such that a small dissection is not excluded. 4. Otherwise unremarkable CT angiogram of the neck. ACT 112: Negative or not required by law. Electronically signed by: Manny Neely M.D. 10/14/2022 12:05 PM Brain MRI 10/15/22 12:07 MRI OF THE BRAIN COMBO CLINICAL HISTORY: Left-sided weakness. Facial droop. Sensory deficits. COMPARISON STUDY: CT of the brain dated 10/14/2022. MRI of the brain dated 10/06/2022. TECHNIQUE: MRI of the brain was performed utilizing various T1 and T2-weighted sequences in the axial, sagittal, and coronal planes. Contrast-enhanced sequences were acquired following the administration of 8 cc of Gadavist. FINDINGS: Brain parenchyma: The brain parenchyma is normal in appearance. There is no hemorrhage or mass effect. There is no restricted diffusion to suggest acute ischemia. No enhancing mass lesion is identified on the postcontrast images. Chavez-white matter differentiation is preserved. No extra-axial fluid collection is seen. The cerebellar tonsils are normal in configuration. Ventricles, sulci, and cisterns: Normal in configuration. Pituitary and sella: Unremarkable. Intracranial vasculature: Normal flow voids are maintained at the skull base. Orbits: The bony orbits are grossly intact. Orbital contents are normal in appearance. Sinuses and mastoids: Clear. Calvarium: Unremarkable. Cervical cord: Partially visualized cervical spinal cord is normal in morphology and signal intensity. IMPRESSION: No acute intracranial abnormality. ACT 112: Negative or not required by law. Electronically signed by: Manny Neely M.D. 10/15/2022 2:21 PM Lumbar Puncture Fluoroscopy 10/16/22 16:01 10/16/2022 10:43 AM FL lumbar puncture diagnostic EXAMINATION: Fluoroscopic-guided lumbar puncture. 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 A confirmatory timeout was performed prior to initiation of the procedure. A suitable puncture site at the L2-L3 level was obtained using fluoroscopy. The site was then cleaned and prepped in the usual sterile fashion. A total of 5 mL of 1% lidocaine was infused into the subcutaneous tissues during the procedure to achieve local anesthesia. Using a 20-gauge 3 1/2 inch spinal needle, the thecal sac was accessed under fluoroscopic guidance with the patient in the prone position. Approximately 8 mL of clear CSF was collected into four separate vials. The spinal needle with stylet in place was removed and pressure was placed over the puncture site until hemostasis was achieved. There were no immediate complications. The patient tolerated the procedure well. IMPRESSION: Fluoroscopic guided lumbar puncture. Approximately 8 mL of clear CSF was collected into four separate vials. No immediate complications. Fluoroscopy time: 1.5 minutes. ACT 112: Negative or not required by law. Electronically signed by: Robson Melo M.D. 10/16/2022 11:58 AM (1) Shingles Herpes zoster complications: without complications Qualified Code(s): B02.9 - Zoster without complications
[2022-10-16] MEDS: ACYCLOVIR SOD IV SCH ×2 (14:39→21:35)
[2022-10-16] MEDS: DEXTROSE 5% IV SCH ×2 (14:39→21:35)
[2022-10-16] MEDS: Patient's HEIGHT &/or WEIGHT Needed SCH ×3 (14:40→14:43)
[2022-10-16] MEDS: traMADol HCL 50 MG TABLET PO PRN (16:16)
--- NOTE | 2022-10-16 16:39 | Infectious Disease Consult ---
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 ID consulted today based on findings concerning for VZV mengino-encephalitis. See HPI for further details. Patient on Valtrex BID dosing and steroids prior to admission and p/w stroke like symptoms with L sided facial drooping. CTA showed beaded appearance with 2 saccular outpouchings of the distal cervical portion of the right vertebral artery at C2. The outpouching measure up to 4 mm. Thrombolytic therapy not initiated. Patient continued on po Valtrex (previously only on BID, increased to TID., given pain medication in addition to gabapentin. Patient underwent MRI with contrast Brain: : No acute intracranial abnormality and LP today, CSF WBC 49, RBC 50 (tube 3), protein 61, CSF VZV PCR detected. Patient was started on IV Acyclovir Discussion: Patient with evidence of VZV meningitis and symptoms of trigeminal nerve distribution of disease. CTA showing right vertebral artery aneurysm. LP shows A modest pleocytosis and positive VZV detection. Concern for possible VZV vasculopathy given CTA findings.VZV can involve both large and small arteries. Mixed large and small artery disease is generally seen more often than pure small artery disease; pure large artery disease occurs least often, Agree with IV Acyclovir 10mg/kg IV q8 hours Recommend: -F/U CSF culture -Agree with Acyclovir 10mg/kg IV q8 hours -D/W neurology R vertebral artery findings from CTA -Anticipate she will need minimum of 2 week therapy Discussed case with Primary team Thank you for allowing me to participate in the care of your patient. Jocelyne Zamora MD [facility], [facility] Consultation Information This patient recommendation is based on a telemedicine consult request which was completed asynchronously through chart review and information provided by the primary physician. The patient was not seen or examined today. The evaluation is consultative in nature and all patient care and treatment decisions can either be accepted or rejected by the patient's primary hospital-based treating physician using their own independent medical judgment for their patient. Patient Relations Director contact information: Please call [facility] Call Center . (Phone Number For Physician Use Only) Time Spent Reviewing Chart: 31+ minutes History of Present Illness Reason for Consultation: VZV meningitis Requesting Physician: Dr. Quynh Jennings MD Attending Physician: Quynh Jennings MD History of Present Illness 42 yo F with recently diagnosed herpes zoster of face approx. 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 ID consulted today based on findings concerning for VZV mengino-encephalitis. HPI is taken from EMR and discussion with patients primary team. She was seen in ED on 10/06 for headache for approximately 1 week after she hit her head against a tree branch and then fell and hit the back of her head. CT Head n/c was negative. MRA and MRI of the brain are both negative. Lab work shows slight leukopenia but is otherwise generally unremarkable. on 10/09, patient was diagnosed with herpes zoster, L side of face on 10/09. She was placed on po Valtrex and oral steroids. 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 She was also given po steroids as outpatient. In the ED, VSS, she developed lower face droop, right sided tongue deviation and was unable to give her name and age. Stroke alert was called. Initial labs WBC 9.51 Hgb 15.5, platelets 427, Create 0.65, RVP negative. CTA showed beaded appearance with 2 saccular outpouchings of the distal cervical portion of the right vertebral artery at C2. The outpouching measure up to 4 mm. Thrombolytic therapy not initiated. Patient continued on po Valtrex (previously only on BID, increased to TID., given pain medication in addition to gabapentin. Patient underwent MRI with contrast Brain: : No acute intracranial abnormality and LP today, CSF WBC 49, RBC 50 (tube 3), protein 61, CSF VZV PCR detected. Patient was started on IV Acyclovir ID consulted today. Allergies Allergy/AdvReac Type Severity Reaction Status Date / Time hydrocodone [From Vicodin] Allergy Intermediate ITCHY Verified 10/14/22 15:01 RASH, RESTLESSNESS levofloxacin [From Levaquin] Allergy Intermediate ITCHY Verified 10/14/22 15:01 RASH, RESTLESSNESS oxycodone [From Percocet] Allergy Intermediate ITCHY Verified 10/14/22 15:01 RASH, RESTLESSNESS Home Medications Medication Instructions Recorded Confirmed Type estradiol 0.5 mg tablet 0.5 mg PO DAILY 10/06/22 10/14/22 History lisdexamfetamine 60 mg capsule 60 mg PO DAILY 10/06/22 10/14/22 History (Vyvanse) pantoprazole 40 mg tablet,delayed 40 mg PO HS 10/06/22 10/14/22 History release zolpidem 10 mg tablet (Ambien) 10 mg PO HS PRN Sleep 10/06/22 10/14/22 History paroxetine HCl 40 mg tablet 40 mg PO HS 10/14/22 10/14/22 History prednisone 50 mg tablet 50 mg PO DAILY 10/14/22 10/14/22 History tizanidine 2 mg tablet 2 mg PO DIRECTED PRN MUSCLE 10/14/22 10/14/22 History SPASMS valacyclovir 1 gram tablet 1 mg PO TID 10/14/22 10/14/22 History Patient History Medical History Absence, ovary, 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 Surgical History History of cholecystectomy Social History Smoking Status: Never smoker Tobacco Type: Cigarettes Preferred Language: Rw[place] Communication Ability: Effective Feels Safe at Home: Yes Assistive Devices: None Results & Data ([facility]) Vital Signs (Past 12 Hours) Vital Signs Temp Pulse Resp BP BP Pulse Ox O2 Del Method 10/16/22 15:15 36.4 C L 90 18 143/92 H 96 Room Air 10/16/22 10:48 36.6 C 81 18 136/90 94 Room Air 10/16/22 08:07 36.8 C 92 H 18 127/88 98 Room Air Laboratory Results Laboratory Results - last 48 hr 10/15/22 10/15/22 10/15/22 06:06 06:06 06:06 WBC 12.76 H RBC 5.18 Hgb 15.1 Hct 43.8 MCV 84.6 MCH 29.2 MCHC 34.5 RDW Std Deviation 37.8 RDW Coeff of Sheryl 12.5 Plt Count 413 H MPV 9.6 Sodium 138 Potassium 3.8 Chloride 102 Carbon Dioxide 30 Anion Gap 6 BUN 20 Creatinine 0.69 Est Cr Clr Drug Dosing Not Reportable Est GFR ( Amer) 124.4 Est GFR (Non-Af Amer) 107.4 BUN/Creatinine Ratio 29.0 H Glucose 111 H Estimat Average Glucose 126 Hemoglobin A1c 6.0 H Calcium 9.3 Triglycerides Cholesterol LDL Cholesterol, Calc VLDL Cholesterol, Calc HDL Cholesterol Cholesterol/HDL Ratio Fld Lyme DNA (PCR) Fluid Comment CSF Appearance CSF Color Xanthrochromic CSF WBC CSF RBC CSF Cell Count Tube # CSF Mononuclear % Auto CSF Polynuclear WBCs CSF Chemistry Tube # CSF Glucose CSF Total Protein CSF VDRL CSF C.neoform/gat PCR CSF CMV DNA (PCR) CSF Enterovirus (PCR) CSF E. coli K1 (PCR) CSF H. influenzae (PCR) CSF HSV I (PCR) CSF HSV II (PCR) CSF HHV 6 (PCR) CSF L.monocytogenes PCR CSF N. meningitidis PCR CSF Parechovirus (PCR) CSF S. agalactiae (PCR) CSF S. pneumoniae (PCR) CSF VZV DNA (PCR) Lyme Specimen Source Lyme DNA Comment 10/15/22 10/16/22 10/16/22 06:06 06:42 06:42 WBC 14.73 H RBC 5.28 H Hgb 15.1 Hct 46.2 H MCV 87.5 MCH 28.6 MCHC 32.7 RDW Std Deviation 39.7 RDW Coeff of Sheryl 12.6 Plt Count 343 MPV 9.4 Sodium 140 Potassium 3.9 Chloride 105 Carbon Dioxide 28 Anion Gap 7 BUN 22 Creatinine 0.79 Est Cr Clr Drug Dosing Not Reportable Est GFR ( Amer) 107.0 Est GFR (Non-Af Amer) 92.3 BUN/Creatinine Ratio 27.8 H Glucose 103 H Estimat Average Glucose Hemoglobin A1c Calcium 8.9 Triglycerides 217 H Cholesterol 217 H LDL Cholesterol, Calc 124 VLDL Cholesterol, Calc 43 H HDL Cholesterol 50 Cholesterol/HDL Ratio 4.3 Fld Lyme DNA (PCR) Fluid Comment CSF Appearance CSF Color Xanthrochromic CSF WBC CSF RBC CSF Cell Count Tube # CSF Mononuclear % Auto CSF Polynuclear WBCs CSF Chemistry Tube # CSF Glucose CSF Total Protein CSF VDRL CSF C.neoform/gat PCR CSF CMV DNA (PCR) CSF Enterovirus (PCR) CSF E. coli K1 (PCR) CSF H. influenzae (PCR) CSF HSV I (PCR) CSF HSV II (PCR) CSF HHV 6 (PCR) CSF L.monocytogenes PCR CSF N. meningitidis PCR CSF Parechovirus (PCR) CSF S. agalactiae (PCR) CSF S. pneumoniae (PCR) CSF VZV DNA (PCR) Lyme Specimen Source Lyme DNA Comment 10/16/22 10/16/22 10/16/22 10:20 10:20 10:20 WBC RBC Hgb Hct MCV MCH MCHC RDW Std Deviation RDW Coeff of Sheryl Plt Count MPV Sodium Potassium Chloride Carbon Dioxide Anion Gap BUN Creatinine Est Cr Clr Drug Dosing Est GFR ( Amer) Est GFR (Non-Af Amer) BUN/Creatinine Ratio Glucose Estimat Average Glucose Hemoglobin A1c Calcium Triglycerides Cholesterol LDL Cholesterol, Calc VLDL Cholesterol, Calc HDL Cholesterol Cholesterol/HDL Ratio Fld Lyme DNA (PCR) Cancelled Fluid Comment CSF Appearance Clear CSF Color Colorless Xanthrochromic No xanthochromia CSF WBC 49 H* CSF RBC 50 CSF Cell Count Tube # 3 CSF Mononuclear % Auto 100.0 CSF Polynuclear WBCs 0.0 CSF Chemistry Tube # 1 CSF Glucose 64 CSF Total Protein 61.4 H CSF VDRL CSF C.neoform/gat PCR CSF CMV DNA (PCR) CSF Enterovirus (PCR) CSF E. coli K1 (PCR) CSF H. influenzae (PCR) CSF HSV I (PCR) CSF HSV II (PCR) CSF HHV 6 (PCR) CSF L.monocytogenes PCR CSF N. meningitidis PCR CSF Parechovirus (PCR) CSF S. agalactiae (PCR) CSF S. pneumoniae (PCR) CSF VZV DNA (PCR) Lyme Specimen Source Cancelled Lyme DNA Comment Cancelled 10/16/22 10/16/22 10:20 10:20 WBC RBC Hgb Hct MCV MCH MCHC RDW Std Deviation RDW Coeff of Sheryl Plt Count MPV Sodium Potassium Chloride Carbon Dioxide Anion Gap BUN Creatinine Est Cr Clr Drug Dosing Est GFR ( Amer) Est GFR (Non-Af Amer) BUN/Creatinine Ratio Glucose Estimat Average Glucose Hemoglobin A1c Calcium Triglycerides Cholesterol LDL Cholesterol, Calc VLDL Cholesterol, Calc HDL Cholesterol Cholesterol/HDL Ratio Fld Lyme DNA (PCR) Fluid Comment CSF Appearance CSF Color Xanthrochromic CSF WBC CSF RBC CSF Cell Count Tube # CSF Mononuclear % Auto CSF Polynuclear WBCs CSF Chemistry Tube # CSF Glucose CSF Total Protein CSF VDRL Cancelled CSF C.neoform/gat PCR Not Detected CSF CMV DNA (PCR) Not Detected CSF Enterovirus (PCR) Not Detected CSF E. coli K1 (PCR) Not Detected CSF H. influenzae (PCR) Not Detected CSF HSV I (PCR) Not Detected CSF HSV II (PCR) Not Detected CSF HHV 6 (PCR) Not Detected CSF L.monocytogenes PCR Not Detected CSF N. meningitidis PCR Not Detected CSF Parechovirus (PCR) Not Detected CSF S. agalactiae (PCR) Not Detected CSF S. pneumoniae (PCR) Not Detected CSF VZV DNA (PCR) DETECTED A* Lyme Specimen Source Lyme DNA Comment Microbiology 10/16/22 10:20 Cerebral Spinal Fluid [place] [address] / Director: Chaparro Avila M.D. Clinical Laboratory Report Name: CRISTA BAY Acct: [id number] Status: ADM IN : 1980 [facility] [place] Date: 10/16/22 Age: 42 Sex: F Dis Date: Loc: [address]/Bed: N2[facility] Spec: [id number] Collected: 10/16/22-1020 Received: 10/16/22-[address]: Quynh Jennings MD Copy To: Serge Gilliland MD Source: Cerebral Spinal Fluid OV Order: Ordered: CSF Cult/Smr Comments: Tube # to use for CSF Culture: Use Laboratory Protocol Procedure Result Verified Site Gram Stain Final 10/16/22-1200 Gram Stain Result Many WBCs Seen No Organisms Seen CSF Culture PENDING
[2022-10-16] MEDS: HYDROmorphone INJ 0.5 MG/0.5 ML SYR IV PRN (18:53)
[2022-10-16] MEDS: ZOLPIDEM TARTRATE 10 MG TAB PO PRN (21:35)
[2022-10-16] MEDS: GABAPENTIN 400 MG CAP PO SCH (21:38)
[2022-10-17] MEDS: HEPARIN SOD 5,000 UNIT/0.5 ML VIAL SQ SCH ×4 (00:08→23:20)
[2022-10-17] MEDS: LACTATED RINGER'S 1,000 ML IV SCH ×3 (02:46→18:29)
[2022-10-17] MEDS: DEXTROSE 5% IV SCH ×3 (05:26→20:24)
[2022-10-17] MEDS: ACYCLOVIR SOD IV SCH ×3 (05:26→20:24)
[2022-10-17] MEDS: Patient's HEIGHT &/or WEIGHT Needed SCH (07:17)
[2022-10-17 07:31] LABS: Hematocrit (blood only) 41.4 % (34.1-44.9); Hemoglobin 13.8 g/dl (12.0-16.0); Mean Corpuscular Hemoglobin 28.9 pg (25.0-34.0); Mean Corpuscular Hgb Conc 33.3 g/dL (32.0-36.0); Mean Corpuscular Volume 86.8 fL (80.0-100.0); Mean Platelet Volume 9.6 fL (9.4-12.3); Platelet Count 324 K/uL (130-400); RDW Coefficient of Variation 12.6 % (11.5-14.5); RDW Standard Deviation 39.5 fL (36.4-46.3); Red Blood Count 4.77 M/uL (3.93-5.22); White Blood Count 7.81 K/ul (4.8-10.8)
--- NOTE | 2022-10-17 07:50 | Hospitalist Progress Note ---
Date of Service October 17, 2022 Assessment & Plan (1) Herpes zoster meningitis: Plan: Admitted with severe left-sided facial and head pain, intermittent focal neurological deficits as below, with herpes zoster on the left trigeminal distribution Stroke work-up as below LP on 10/16 consistent with brisk pleocytosis, elevated total protein, and positive varicella on bio fire. Gram stain no organisms and culture pending. Glucose normal -Discontinued p.o. valacyclovir and converted to acyclovir 10 Mg/KG IV every 8 hours and plan for 2 to 3-week course -Appreciate infectious disease and neurology consultations -Pain control as below -Case management working on arranging home IV acyclovir, will need peripheral ultrasound-guided IV prior to discharge -Follow CBC, BMP -Follow final CSF culture result, Lyme serology on CSF, VDRL, EBV (2) TIA (transient ischemic attack): Plan: Presented with left lateral nerve palsy , +/- left sided weakness on exam, left hemisensory deficits, left facial droop and dysarthria that are coming and going since admission Seem to be improved for the most part on 10/16 Neurology consultation appreciated-now confirm given varicella meningitis as above that these deficits are secondary to partially functional, but also likely to varicella meningitis and involvement of cranial nerves. Infectious disease also suggest that there could be possible varicella vasculopathy involving both large and small arteries MRI brain negative for stroke or tumor CT angiogram head and neck with small 4 mm right vertebral saccular outpouchings-needs follow-up with interventional neuroradiology as an outpatient Continue aspirin and high intensity statin as per neurology given increased risk for stroke with possible vasculopathy and inflammation from varicella meningitis Lipid panel acceptable, hemoglobin A1c 6.0% Continue neurochecks, stroke scale daily (3) Nausea & vomiting: Plan: Secondary to pain and headache from herpes zoster Improved with IV Compazine, Zofran Cont. IV fluids due to persistent nausea and vomiting on the morning of 10/16 which is now improving If persistent, repeat head CT (4) Acute facial pain: Plan: -Pain still not well controlled -increase gabapentin again to 600 mg po tid for postherpetic neuralgia. -Discontinued oxycodone as it makes her feel hypersensitive to noise -Continue tramadol 50 Mg p.o. every 4 hours as needed moderate to severe pain, but hopefully can stop this if pain controlled on gabapentin -Continue IV Dilaudid for severe breakthrough pain not amenable to tramadol -Hopefully now that she is on IV acyclovir, her symptoms will continue to improve more readily (5) Zoster: Plan: Was on valacyclovir but now converting IV acyclovir as above for meningitis initial leukocytosis likely secondary to steroids, improved No steroids further to be given Pain control as above (6) Vertebral artery aneurysm: Plan: As above Follow-up with interventional neuroradiology as an outpatient at [facility] (7) Lupus (systemic lupus erythematosus): Plan: chronic history, not on immunosuppressive therapy -suspect compromised immune system may have made her susceptible to [employer]PLANE [employer]PECT[employer] infection Plan DVT ppx: Heparin SQ FEN/GI: heart healthy Code Status: full Dispo: continued stay on medical floor telemetry. Prior to discharge home, would aim for improved control with p.o. medications only of pain, resolution of nausea/vomiting, and case management needs to make arrangements for home IV acyclovir. Admission and Anticipated Discharge Date Admission Date: October 16, 2022 Supervising Physician Co-Signing Physician Notes I personally examined the patient and verified all ferro points of history and exam, discussed case, and agree with decision making with Dr Woodward. Headache but notes that she is feeling better overall. Pain medicines help. Notes that her lupus on a daily basis tends to be something causing a lot of joint pain aches and fatigue. Vitals noted, in general she is awake and alert pleasant no distress. HEENT normocephalic atraumatic mucous membranes moist. Breathing unlabored no accessory muscle use good effort. Skin shows no rashes no pallor or icterus. Neuro without focal deficits. VZV/meningitis/shinglescontinue antivirals, pain control, supportive care. Suspect her lupus is the reason that her immune system allow this to happen, but after discussioncheck HIV for completeness. Otherwise as above Subjective Seen at bedside this morning. Feeling alot better from yesterday. Still has left sided facial pain more so near her neck but manageable with meds. Mild tenderness at back of head. Thinks gabapentin is helping. Denies chest pain, sob, abd pain, headache, N/V. Review of Systems Review of Systems: All systems reviewed & are unremarkable except as noted in HPI & below Physical Exam Constitutional: WD/WN, vitals as above Eyes: PERRL, conjunctivae normal, anicteric sclerae EOM intact bilaterally (no further palsy) ENMT: external ear and nose normal, oropharynx normal Neck: trachea midline, no thyromegaly Respiratory: normal respiratory effort, lungs clear to auscultation Cardiovascular: RRR, no murmur, no edema Chest (Breasts): Chest: normal inspection of chest Gastrointestinal (Abdomen): normal bowel sounds, soft, nontender, no hepatosplenomegaly Musculoskeletal: Extremities: extremities normal to inspection; no cyanosis a nd no clubbing Skin: + lesion (Multiple scabbed over erythematous lesions left face, preauricular regions) Neurologic: CN's II-XI intact bilaterally (mild left facial palsy with noticeable with smile), deep tendon reflexes 2+ bilaterally, + focal motor deficit (4+ strength in LUE and LLE,improved from yesterday) and awake; not confused Speech / Cognition: normal speech Motor/Sensory: + sensory deficit (Decreased sensation to light touch LUE and LLE); no tremor Psychiatric: Orientation: alert, oriented x 3 and cooperative Lymphatic: no lymphedema Results & Data Results & Data ([facility]) Vital Signs (Past 12 Hours) Vital Signs Temp Pulse Pulse Resp BP Pulse Ox O2 Del Method 10/17/22 03:24 37.3 C 93 H 20 128/84 98 Room Air 10/16/22 22:15 71 10/16/22 22:50 36.6 C 75 18 121/83 96 Room Air 10/16/22 19:58 36.6 C 82 18 122/81 95 Room Air Laboratory Results 10/17/22 10/17/22 10/16/22 Range/Units 06:39 06:39 10:20 WBC 7.81 (4.8-10.8) K/ul RBC 4.77 (3.93-5.22) M/uL Hgb 13.8 (12.0-16.0) g/dl Hct 41.4 (34.1-44.9) % MCV 86.8 (80.0-100.0) fL MCH 28.9 (25.0-34.0) pg MCHC 33.3 (32.0-36.0) g/dL RDW Std Deviation 39.5 (36.4-46.3) fL RDW Coeff of Sheryl 12.6 (11.5-14.5) % Plt Count 324 (130-400) K/uL MPV 9.6 (9.4-12.3) fL Sodium 137 (136-145) mmol/L Potassium 3.9 (3.5-5.1) mmol/L Chloride 104 (98-107) mmol/L Carbon Dioxide 28 (21-32) mmol/L Anion Gap 5 (3-11) BUN 14 (6-23) mg/dl Creatinine 0.60 (0.6-1.2) mg/dl Est Cr Clr Drug Dosing 127.6 ml/min Est GFR ( Amer) 130.3 ml/min Est GFR (Non-Af Amer) 112.4 ml/min BUN/Creatinine Ratio 23.3 H (10-20) Glucose 107 H (70-99(Fasting)) mg/dl Calcium 8.4 L (8.5-10.1) mg/dl Fld Lyme DNA (PCR) Fluid Comment CSF Appearance CSF Color Xanthrochromic CSF WBC (0-5) CSF RBC (0-) CSF Cell Count Tube # CSF Mononuclear % Auto % CSF Polynuclear WBCs % CSF Chemistry Tube # CSF Glucose (40-70) mg/dl CSF Total Protein (15-45) mg/dl CSF VDRL CSF C.neoform/gat PCR Not Detected (NotDetected) CSF CMV DNA (PCR) Not Detected (NotDetected) CSF Enterovirus (PCR) Not Detected (NotDetected) CSF E. coli K1 (PCR) Not Detected (NotDetected) CSF H. influenzae (PCR) Not Detected (NotDetected) CSF HSV I (PCR) Not Detected (NotDetected) CSF HSV II (PCR) Not Detected (NotDetected) CSF HHV 6 (PCR) Not Detected (NotDetected) CSF L.monocytogenes PCR Not Detected (NotDetected) CSF N. meningitidis PCR Not Detected (NotDetected) CSF Parechovirus (PCR) Not Detected (NotDetected) CSF S. agalactiae (PCR) Not Detected (NotDetected) CSF S. pneumoniae (PCR) Not Detected (NotDetected) CSF VZV DNA (PCR) DETECTED A* (NotDetected) Lyme Specimen Source Lyme DNA Comment EBV Source EBV DNA, Quant EBV DNA (PCR) 10/16/22 10/16/22 10/16/22 Range/Units 10:20 10:20 10:20 WBC (4.8-10.8) K/ul RBC (3.93-5.22) M/uL Hgb (12.0-16.0) g/dl Hct (34.1-44.9) % MCV (80.0-100.0) fL MCH (25.0-34.0) pg MCHC (32.0-36.0) g/dL RDW Std Deviation (36.4-46.3) fL RDW Coeff of Sheryl (11.5-14.5) % Plt Count (130-400) K/uL MPV (9.4-12.3) fL Sodium (136-145) mmol/L Potassium (3.5-5.1) mmol/L Chloride (98-107) mmol/L Carbon Dioxide (21-32) mmol/L Anion Gap (3-11) BUN (6-23) mg/dl Creatinine (0.6-1.2) mg/dl Est Cr Clr Drug Dosing ml/min Est GFR ( Amer) ml/min Est GFR (Non-Af Amer) ml/min BUN/Creatinine Ratio (10-20) Glucose (70-99(Fasting)) mg/dl Calcium (8.5-10.1) mg/dl Fld Lyme DNA (PCR) Cancelled Fluid Comment CSF Appearance Clear CSF Color Colorless Xanthrochromic No xanthochromia CSF WBC 49 H* (0-5) CSF RBC 50 (0-) CSF Cell Count Tube # 3 CSF Mononuclear % Auto 100.0 % CSF Polynuclear WBCs 0.0 % CSF Chemistry Tube # CSF Glucose (40-70) mg/dl CSF Total Protein (15-45) mg/dl CSF VDRL Cancelled CSF C.neoform/gat PCR (NotDetected) CSF CMV DNA (PCR) (NotDetected) CSF Enterovirus (PCR) (NotDetected) CSF E. coli K1 (PCR) (NotDetected) CSF H. influenzae (PCR) (NotDetected) CSF HSV I (PCR) (NotDetected) CSF HSV II (PCR) (NotDetected) CSF HHV 6 (PCR) (NotDetected) CSF L.monocytogenes PCR (NotDetected) CSF N. meningitidis PCR (NotDetected) CSF Parechovirus (PCR) (NotDetected) CSF S. agalactiae (PCR) (NotDetected) CSF S. pneumoniae (PCR) (NotDetected) CSF VZV DNA (PCR) (NotDetected) Lyme Specimen Source Cancelled Lyme DNA Comment Cancelled EBV Source EBV DNA, Quant EBV DNA (PCR) 10/16/22 10/16/22 Range/Units 10:20 10:20 WBC (4.8-10.8) K/ul RBC (3.93-5.22) M/uL Hgb (12.0-16.0) g/dl Hct (34.1-44.9) % MCV (80.0-100.0) fL MCH (25.0-34.0) pg MCHC (32.0-36.0) g/dL RDW Std Deviation (36.4-46.3) fL RDW Coeff of Sheryl (11.5-14.5) % Plt Count (130-400) K/uL MPV (9.4-12.3) fL Sodium (136-145) mmol/L Potassium (3.5-5.1) mmol/L Chloride (98-107) mmol/L Carbon Dioxide (21-32) mmol/L Anion Gap (3-11) BUN (6-23) mg/dl Creatinine (0.6-1.2) mg/dl Est Cr Clr Drug Dosing ml/min Est GFR ( Amer) ml/min Est GFR (Non-Af Amer) ml/min BUN/Creatinine Ratio (10-20) Glucose (70-99(Fasting)) mg/dl Calcium (8.5-10.1) mg/dl Fld Lyme DNA (PCR) Pending Fluid Comment CSF Appearance CSF Color Xanthrochromic CSF WBC (0-5) CSF RBC (0-) CSF Cell Count Tube # CSF Mononuclear % Auto % CSF Polynuclear WBCs % CSF Chemistry Tube # 1 CSF Glucose 64 (40-70) mg/dl CSF Total Protein 61.4 H (15-45) mg/dl CSF VDRL Pending CSF C.neoform/gat PCR (NotDetected) CSF CMV DNA (PCR) (NotDetected) CSF Enterovirus (PCR) (NotDetected) CSF E. coli K1 (PCR) (NotDetected) CSF H. influenzae (PCR) (NotDetected) CSF HSV I (PCR) (NotDetected) CSF HSV II (PCR) (NotDetected) CSF HHV 6 (PCR) (NotDetected) CSF L.monocytogenes PCR (NotDetected) CSF N. meningitidis PCR (NotDetected) CSF Parechovirus (PCR) (NotDetected) CSF S. agalactiae (PCR) (NotDetected) CSF S. pneumoniae (PCR) (NotDetected) CSF VZV DNA (PCR) (NotDetected) Lyme Specimen Source Pending Lyme DNA Comment EBV Source Pending EBV DNA, Quant Pending EBV DNA (PCR) Pending Resident Activity Tracking Resident Involvement: Resident Care Provided Care Provided: Adult Hospital Medicine
[2022-10-17 07:56] LABS: BUN Creatinine Ratio 23.3 (10-20); Calcium 8.4 mg/dl (8.5-10.1); Creatinine Clr Calc Pharmacy 127.6 ml/min; Est GFR (African American) 130.3 ml/min; Est GFR (Non-African American) 112.4 ml/min; Potassium 3.9 mmol/L (3.5-5.1)
[2022-10-17] MEDS: ASPIRIN 81 MG ECTAB PO SCH (07:56)
[2022-10-17] MEDS: ATORVASTATIN 40 MG TAB PO SCH (07:56)
[2022-10-17] MEDS: PANTOprazole 40 MG TAB PO SCH (07:56)
[2022-10-17] MEDS: GABAPENTIN 400 MG CAP PO SCH ×2 (07:56→12:46)
[2022-10-17] MEDS: traMADol HCL 50 MG TABLET PO PRN ×2 (13:52→20:23)
[2022-10-17] MEDS: HYDROmorphone INJ 1 MG/ML SYRINGE IV PRN ×2 (14:34→21:51)
[2022-10-17] MEDS ORDERED: ACETAMINOPHEN 500 MG TAB PO PRN (15:47)
[2022-10-17] MEDS ORDERED: HYDROmorphone INJ 1 MG/ML SYRINGE IV STA (15:47)
--- NOTE | 2022-10-17 18:14 | Billing Data ---
Date of Service October 17, 2022 Coding Level of Care Code 09696 Subseq Hosp Care Lvl 3
--- NOTE | 2022-10-17 18:15 | Neurology Progress Note ---
Date of Service October 17, 2022 Assessment & Plan (1) Herpes zoster meningitis: Plan: Impression: The patient was diagnosed with left facial and scalp shingles, which has been treated on oral valacyclovir and steroid. 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 Recommendations: Continue on gabapentin 600 mg 3 times a day. Further dose titration as needed. Limit use of narcotic analgesics and nonsteroidal anti-inflammatory medications. Acyclovir IV, 10 mg/kg, every 8 hours, for 2-3 wks per ID. We should try to arrange home health to continue infusion treatment in her house. Antinausea treatment as needed. Contact and droplet precautions. We will follow patient's with you. (2) Stroke-like symptoms: Plan: Impression: The patient has been having constellation of neurological symptoms including left facial numbness, left hemiparesthesia, short lasting facial asymmetry during grimacing, abnormal tongue protrusion, episodes of stuttering type speech difficulty, reported confusional episodes, and new left eye abduction partial limitation which were initially suggestive of at least partially functional, however, based on + CSF findings, such symptoms are likely due to VZV meningitis with involvement of cranial nerves. We will keep the patient on aspirin 81 mg and Lipitor as inflammatory [employer] process might increase risk of CVA. Brain MRI with and without contrast.--reviewed (3) Shingles: Plan: Impression: The patient was diagnosed with shingles involving scalp in trigeminal nerve distribution which has been treated on valacyclovir and steroid. Skin lesions has been improving but pain persist. Recommendations: Treatment of postherpetic neuralgia on gabapentin. We should stop oral valacyclovir and prednisone, and will continue on IV acyclovir. (4) Acute facial pain: Plan: Impression: This is most likely due to postherpetic neuralgia. (5) Vertebral artery aneurysm: Plan: Impression: There was a beaded appearance with 2 saccular outpouching of the distal cervical portion of the right vertebral artery, measuring up to 4 mm. This may represent small aneurysm but also could be seen with fibromuscular dysplasia. At this level, small dissection is not excluded. Zoster meningitis and induced vasculitis is considered in differential. Recommendations: We will keep the patient on aspirin and Lipitor. --Repeat CT angiography is after acute treatment. Outpatient follow-up with interventional radiology. (6) Lupus (systemic lupus erythematosus): Plan: Impression: The patient reports having diagnosis of systemic lupus erythematosus, which was diagnosed several years ago. The patient used to be on Plaquenil and prednisone which were stopped 4 years ago. Recommendations: Outpatient rheumatology follow-up. Admission and Anticipated Discharge Date Admission Date: October 16, 2022 Subjective The patient is comfortable and resting in the bed. Nausea has been improved since yesterday. The patient reports that facial and scalp pain has been better as well as left-sided hemiparesthesia. She eats and sleeps well. She tolerates IV acyclovir. She was seen by infectious disease specialist. She would like to receive IV treatment at home. Review of Systems Review of Systems: All systems reviewed & are unremarkable except as noted in Subjective Physical Exam Physical Exam: General Examination: Constitutional: Well developed person in no acute distress. HEENT: Normal exam with inspection other than skin discoloration with healing vesicles at frontal and temporal scalp. Otoscopy did not show ear canal lesions. Normal looking ear drum. CV: Hearth rhythm is regular. Neck: Supple, no carotid bruits. Lungs: Non-labored and comfortable breathing. Abdomen: Soft, non-tender, non-distended. Skin: No rash or ecchymosis other than scalp lesions as described above. Extremities: No edema or cyanosis NEUROLOGICAL EXAMINATION: Mental Status: Alert and oriented to place, person and time. Cranial Nerves: II-XII are intact. No nystagmus. Left eye partial abduction limitation during left gaze is noticed. Funduscopy: Not examined Motor: 5/5 in all extremities except left ankle dorsiflexion is 2-/5. Tone: Normal without spasticity or rigidity. DTRs: 2+ all. No Babinski Sensory: The patient reports decreased sensation on the left side of face and left upper and lower extremities which is better today. Coordination: No dysmetria with FTN testing. Speech: Fluent. Comprehension is intact. Intermittent atypical stuttering is noticed. Gait: Not assessed Musculoskeletal: Normal muscle bulk, no atrophy. Results & Data ([facility]) Vital Signs (Past 12 Hours) Vital Signs Temp Pulse Pulse Resp BP BP Pulse Ox 10/17/22 15:00 105 H 10/17/22 15:34 37.2 C 102 H 18 161/99 H 96 10/17/22 07:00 87 10/17/22 11:23 36.7 C 98 H 18 134/82 97 10/17/22 07:30 36.7 C 95 H 18 144/90 H 95 10/17/22 08:00 O2 Del Method 10/17/22 15:00 10/17/22 15:34 Room Air 10/17/22 07:00 10/17/22 11:23 Room Air 10/17/22 07:30 Room Air 10/17/22 08:00 Room Air Laboratory Results Laboratory Results - last 24 hr 10/17/22 10/17/22 06:39 06:39 WBC 7.81 RBC 4.77 Hgb 13.8 Hct 41.4 MCV 86.8 MCH 28.9 MCHC 33.3 RDW Std Deviation 39.5 RDW Coeff of Sheryl 12.6 Plt Count 324 MPV 9.6 Sodium 137 Potassium 3.9 Chloride 104 Carbon Dioxide 28 Anion Gap 5 BUN 14 Creatinine 0.60 Est Cr Clr Drug Dosing 127.6 Est GFR ( Amer) 130.3 Est GFR (Non-Af Amer) 112.4 BUN/Creatinine Ratio 23.3 H Glucose 107 H Calcium 8.4 L Diagnostic Findings Head CT 10/14/22 11:[address] OF THE BRAIN; CT ANGIOGRAM OF THE BRAIN; CT ANGIOGRAM OF THE NECK CLINICAL HISTORY: Strokelike symptoms. Slurred speech. COMPARISON STUDY: CT of the brain dated 10/06/2022. MRI and MR angiogram of the brain dated 10/06/2022. TECHNIQUE: Unenhanced axial CT scan of the brain is performed. Subsequently, following the IV administration of 114 of Optiray 320, CT angiogram of the head and neck was performed from the aortic arch to the vertex. Images are reviewed in the axial, sagittal, and coronal planes. 3-D MIPS images are created and assessed. IV contrast was administered without complication. All measurements were calculated based on NASCET criteria. A dose lowering technique was utilized adhering to the principles of ALARA. CT DOSE: 1068.23 mGy.cm FINDINGS: Brain parenchyma: The brain parenchyma is normal in appearance. There is no hemorrhage, mass effect, or evidence of acute territorial ischemia by CT criteria. There is no evidence of enhancing mass lesion on the angiogram phase images. The ventricles, sulci, and cisterns are normal in configuration. Chavez- white matter differentiation is preserved. No extra-axial fluid collection is seen. Thoracic aorta: Visualized portions of the thoracic aorta are normal in caliber. The aortic arch demonstrates standard 3-vessel anatomy. Right carotid arterial system: The right common carotid artery is widely patent, as are the right internal and external carotid arteries. Left carotid arterial system: The left common carotid artery is widely patent, as are the left internal and external carotid arteries. Vertebral arteries: The vertebral arteries are patent bilaterally noting left- sided dominance. There is a beaded appearance with 2 saccular outpouchings arising from the distal right vertebral artery at the level of C2 seen on images #249 and #258. These measure up to 4 mm. There is also focal narrowing of the intervening vertebral artery at this level, best seen on axial image #257. A short segment dissection is not excluded. Subclavian arteries: Widely patent bilaterally. Intracranial vasculature: There are bilateral posterior communicating arteries. The internal carotid arteries are patent at the skull base, as are the anterior and middle cerebral arteries bilaterally. The vertebrobasilar system and posterior cerebral arteries are widely patent. The left vertebral artery is dominant. There is no aneurysm, high-grade stenosis, or focal vessel cut off seen throughout the intracranial circulation. Jugular veins: Patent bilaterally. Dural sinuses: Patent. Lung apices: Partially visualized upper lobe lung parenchyma appears clear. Soft tissues: The visualized pharyngeal soft tissues are normal in appearance noting angiographic phase technique. The oropharyngeal airway appears widely patent. The salivary and thyroid glands are normal in appearance. No cervical lymphadenopathy is seen. Skeletal structures: The calvarium appears intact. The cervical spine is within normal limits. Orbits: The bony orbits are intact. Orbital contents are normal as visualized. Sinuses and mastoids: The paranasal sinuses are clear. The mastoid air cells are well pneumatized. IMPRESSION: 1. There is no hemorrhage, mass effect, or evidence of acute territorial ischemia by CT criteria. 2. Unremarkable CT angiogram of the brain. 3. There is a beaded appearance with 2 saccular outpouchings of the distal cervical portion of the right vertebral artery at C2. The outpouching measure up to 4 mm. These may represent small aneurysms, or this could be seen with fibromuscular dysplasia. There is focal narrowing of the right vertebral artery between the outpouchings at this level such that a small dissection is not excluded. 4. Otherwise unremarkable CT angiogram of the neck. ACT 112: Negative or not required by law. Electronically signed by: Manny Neely M.D. 10/14/2022 12:05 PM Head CTA 10/14/22 11:[address] OF THE BRAIN; CT ANGIOGRAM OF THE BRAIN; CT ANGIOGRAM OF THE NECK CLINICAL HISTORY: Strokelike symptoms. Slurred speech. COMPARISON STUDY: CT of the brain dated 10/06/2022. MRI and MR angiogram of the brain dated 10/06/2022. TECHNIQUE: Unenhanced axial CT scan of the brain is performed. Subsequently, following the IV administration of 114 of Optiray 320, CT angiogram of the head and neck was performed from the aortic arch to the vertex. Images are reviewed in the axial, sagittal, and coronal planes. 3-D MIPS images are created and assessed. IV contrast was administered without complication. All measurements were calculated based on NASCET criteria. A dose lowering technique was utilized adhering to the principles of ALARA. CT DOSE: 1068.23 mGy.cm FINDINGS: Brain parenchyma: The brain parenchyma is normal in appearance. There is no hemorrhage, mass effect, or evidence of acute territorial ischemia by CT criteria. There is no evidence of enhancing mass lesion on the angiogram phase images. The ventricles, sulci, and cisterns are normal in configuration. Chavez- white matter differentiation is preserved. No extra-axial fluid collection is seen. Thoracic aorta: Visualized portions of the thoracic aorta are normal in caliber. The aortic arch demonstrates standard 3-vessel anatomy. Right carotid arterial system: The right common carotid artery is widely patent, as are the right internal and external carotid arteries. Left carotid arterial system: The left common carotid artery is widely patent, as are the left internal and external carotid arteries. Vertebral arteries: The vertebral arteries are patent bilaterally noting left- sided dominance. There is a beaded appearance with 2 saccular outpouchings arising from the distal right vertebral artery at the level of C2 seen on images #249 and #258. These measure up to 4 mm. There is also focal narrowing of the intervening vertebral artery at this level, best seen on axial image #257. A short segment dissection is not excluded. Subclavian arteries: Widely patent bilaterally. Intracranial vasculature: There are bilateral posterior communicating arteries. The internal carotid arteries are patent at the skull base, as are the anterior and middle cerebral arteries bilaterally. The vertebrobasilar system and posterior cerebral arteries are widely patent. The left vertebral artery is dominant. There is no aneurysm, high-grade stenosis, or focal vessel cut off seen throughout the intracranial circulation. Jugular veins: Patent bilaterally. Dural sinuses: Patent. Lung apices: Partially visualized upper lobe lung parenchyma appears clear. Soft tissues: The visualized pharyngeal soft tissues are normal in appearance noting angiographic phase technique. The oropharyngeal airway appears widely patent. The salivary and thyroid glands are normal in appearance. No cervical lymphadenopathy is seen. Skeletal structures: The calvarium appears intact. The cervical spine is within normal limits. Orbits: The bony orbits are intact. Orbital contents are normal as visualized. Sinuses and mastoids: The paranasal sinuses are clear. The mastoid air cells are well pneumatized. IMPRESSION: 1. There is no hemorrhage, mass effect, or evidence of acute territorial ischemia by CT criteria. 2. Unremarkable CT angiogram of the brain. 3. There is a beaded appearance with 2 saccular outpouchings of the distal cervical portion of the right vertebral artery at C2. The outpouching measure up to 4 mm. These may represent small aneurysms, or this could be seen with fibromuscular dysplasia. There is focal narrowing of the right vertebral artery between the outpouchings at this level such that a small dissection is not excluded. 4. Otherwise unremarkable CT angiogram of the neck. ACT 112: Negative or not required by law. Electronically signed by: Manny Neely M.D. 10/14/2022 12:05 PM Neck CTA 10/14/22 11:[address] OF THE BRAIN; CT ANGIOGRAM OF THE BRAIN; CT ANGIOGRAM OF THE NECK CLINICAL HISTORY: Strokelike symptoms. Slurred speech. COMPARISON STUDY: CT of the brain dated 10/06/2022. MRI and MR angiogram of the brain dated 10/06/2022. TECHNIQUE: Unenhanced axial CT scan of the brain is performed. Subsequently, following the IV administration of 114 of Optiray 320, CT angiogram of the head and neck was performed from the aortic arch to the vertex. Images are reviewed in the axial, sagittal, and coronal planes. 3-D MIPS images are created and assessed. IV contrast was administered without complication. All measurements were calculated based on NASCET criteria. A dose lowering technique was utilized adhering to the principles of ALARA. CT DOSE: 1068.23 mGy.cm FINDINGS: Brain parenchyma: The brain parenchyma is normal in appearance. There is no hemorrhage, mass effect, or evidence of acute territorial ischemia by CT criteria. There is no evidence of enhancing mass lesion on the angiogram phase images. The ventricles, sulci, and cisterns are normal in configuration. Chavez- white matter differentiation is preserved. No extra-axial fluid collection is seen. Thoracic aorta: Visualized portions of the thoracic aorta are normal in caliber. The aortic arch demonstrates standard 3-vessel anatomy. Right carotid arterial system: The right common carotid artery is widely patent, as are the right internal and external carotid arteries. Left carotid arterial system: The left common carotid artery is widely patent, as are the left internal and external carotid arteries. Vertebral arteries: The vertebral arteries are patent bilaterally noting left- sided dominance. There is a beaded appearance with 2 saccular outpouchings arising from the distal right vertebral artery at the level of C2 seen on images #249 and #258. These measure up to 4 mm. There is also focal narrowing of the intervening vertebral artery at this level, best seen on axial image #257. A short segment dissection is not excluded. Subclavian arteries: Widely patent bilaterally. Intracranial vasculature: There are bilateral posterior communicating arteries. The internal carotid arteries are patent at the skull base, as are the anterior and middle cerebral arteries bilaterally. The vertebrobasilar system and posterior cerebral arteries are widely patent. The left vertebral artery is dominant. There is no aneurysm, high-grade stenosis, or focal vessel cut off seen throughout the intracranial circulation. Jugular veins: Patent bilaterally. Dural sinuses: Patent. Lung apices: Partially visualized upper lobe lung parenchyma appears clear. Soft tissues: The visualized pharyngeal soft tissues are normal in appearance noting angiographic phase technique. The oropharyngeal airway appears widely patent. The salivary and thyroid glands are normal in appearance. No cervical lymphadenopathy is seen. Skeletal structures: The calvarium appears intact. The cervical spine is within normal limits. Orbits: The bony orbits are intact. Orbital contents are normal as visualized. Sinuses and mastoids: The paranasal sinuses are clear. The mastoid air cells are well pneumatized. IMPRESSION: 1. There is no hemorrhage, mass effect, or evidence of acute territorial ischemia by CT criteria. 2. Unremarkable CT angiogram of the brain. 3. There is a beaded appearance with 2 saccular outpouchings of the distal cervical portion of the right vertebral artery at C2. The outpouching measure up to 4 mm. These may represent small aneurysms, or this could be seen with fibromuscular dysplasia. There is focal narrowing of the right vertebral artery between the outpouchings at this level such that a small dissection is not excluded. 4. Otherwise unremarkable CT angiogram of the neck. ACT 112: Negative or not required by law. Electronically signed by: Manny Neely M.D. 10/14/2022 12:05 PM Brain MRI 10/15/22 12:07 MRI OF THE BRAIN COMBO CLINICAL HISTORY: Left-sided weakness. Facial droop. Sensory deficits. COMPARISON STUDY: CT of the brain dated 10/14/2022. MRI of the brain dated 10/06/2022. TECHNIQUE: MRI of the brain was performed utilizing various T1 and T2-weighted sequences in the axial, sagittal, and coronal planes. Contrast-enhanced sequences were acquired following the administration of 8 cc of Gadavist. FINDINGS: Brain parenchyma: The brain parenchyma is normal in appearance. There is no hemorrhage or mass effect. There is no restricted diffusion to suggest acute ischemia. No enhancing mass lesion is identified on the postcontrast images. Chavez-white matter differentiation is preserved. No extra-axial fluid collection is seen. The cerebellar tonsils are normal in configuration. Ventricles, sulci, and cisterns: Normal in configuration. Pituitary and sella: Unremarkable. Intracranial vasculature: Normal flow voids are maintained at the skull base. Orbits: The bony orbits are grossly intact. Orbital contents are normal in appearance. Sinuses and mastoids: Clear. Calvarium: Unremarkable. Cervical cord: Partially visualized cervical spinal cord is normal in morphology and signal intensity. IMPRESSION: No acute intracranial abnormality. ACT 112: Negative or not required by law. Electronically signed by: Manny Neely M.D. 10/15/2022 2:21 PM Lumbar Puncture Fluoroscopy 10/16/22 16:01 10/16/2022 10:43 AM [place] lumbar puncture diagnostic EXAMINATION: Fluoroscopic-guided lumbar puncture. CLINICAL HISTORY: Herpes Zoster, r/o [employer] infection PROCEDURE: After the technique, risks, alternatives, and benefits of the procedure were explained to the patient, signed consent was obtained. A confirmatory timeout was performed prior to initiation of the procedure. A suitable puncture site at the L2-L3 level was obtained using fluoroscopy. The site was then cleaned and prepped in the usual sterile fashion. A total of 5 mL of 1% lidocaine was infused into the subcutaneous tissues during the procedure to achieve local anesthesia. Using a 20-gauge 3 1/2 inch spinal needle, the thecal sac was accessed under fluoroscopic guidance with the patient in the prone position. Approximately 8 mL of clear CSF was collected into four separate vials. The spinal needle with stylet in place was removed and pressure was placed over the puncture site until hemostasis was achieved. There were no immediate complications. The patient tolerated the procedure well. IMPRESSION: Fluoroscopic guided lumbar puncture. Approximately 8 mL of clear CSF was collected into four separate vials. No immediate complications. Fluoroscopy time: 1.5 minutes. ACT 112: Negative or not required by law. Electronically signed by: Robson Melo M.D. 10/16/2022 11:58 AM (1) Shingles Herpes zoster complications: without complications Qualified Code(s): B02.9 - Zoster without complications
[2022-10-17] MEDS: GABAPENTIN 600 MG TAB PO SCH (20:23)
[2022-10-17] MEDS: ZOLPIDEM TARTRATE 10 MG TAB PO PRN (20:24)
[2022-10-18] MEDS: LACTATED RINGER'S 1,000 ML IV SCH ×4 (02:30→23:57)
[2022-10-18] MEDS: DEXTROSE 5% IV SCH ×3 (05:39→20:33)
[2022-10-18] MEDS: ACYCLOVIR SOD IV SCH ×3 (05:39→20:33)
[2022-10-18 07:22] LABS: Hematocrit (blood only) 42.2 % (34.1-44.9); Hemoglobin 14.2 g/dl (12.0-16.0); Mean Corpuscular Hemoglobin 29.1 pg (25.0-34.0); Mean Corpuscular Hgb Conc 33.6 g/dL (32.0-36.0); Mean Corpuscular Volume 86.5 fL (80.0-100.0); Mean Platelet Volume 9.7 fL (9.4-12.3); Platelet Count 328 K/uL (130-400); RDW Coefficient of Variation 12.5 % (11.5-14.5); Red Blood Count 4.88 M/uL (3.93-5.22)
[2022-10-18] MEDS: GABAPENTIN 600 MG TAB PO SCH ×3 (07:43→20:34)
[2022-10-18] MEDS: HEPARIN SOD 5,000 UNIT/0.5 ML VIAL SQ SCH ×3 (07:43→23:57)
[2022-10-18] MEDS: PANTOprazole 40 MG TAB PO SCH (07:43)
[2022-10-18] MEDS: ATORVASTATIN 40 MG TAB PO SCH (07:43)
[2022-10-18] MEDS: ASPIRIN 81 MG ECTAB PO SCH (07:43)
[2022-10-18 07:55] LABS: BUN Creatinine Ratio 14.3 (10-20); Calcium 8.9 mg/dl (8.5-10.1); Creatinine Clr Calc Pharmacy 137.6 ml/min; Est GFR (African American) 128.2 ml/min; Est GFR (Non-African American) 110.6 ml/min
--- NOTE | 2022-10-18 07:55 | Hospitalist Progress Note ---
Date of Service October 18, 2022 Assessment & Plan (1) Herpes zoster meningitis: Plan: Admitted with severe left-sided facial and head pain, intermittent focal neurological deficits as below, with herpes zoster on the left trigeminal distribution Stroke work-up as below LP on 10/16 consistent with brisk pleocytosis, elevated total protein, and positive varicella on bio fire. Gram stain no organisms and culture pending. Glucose normal -Discontinued p.o. valacyclovir and converted to acyclovir 10 Mg/KG IV every 8 hours and plan for 2 to 3-week course -Appreciate infectious disease and neurology consultations -Pain control as below -Case management working on arranging home IV acyclovir, will need peripheral ultrasound-guided IV prior to discharge -Follow CBC, BMP -Follow final CSF culture result, Lyme serology on CSF, VDRL, EBV (2) TIA (transient ischemic attack): Plan: Presented with left lateral nerve palsy , +/- left sided weakness on exam, left hemisensory deficits, left facial droop and dysarthria that are coming and going since admission Seem to be improving for the most part on 10/16, however, showed some focal deficits again today in her left extremities. Neurology consultation appreciated-now confirm given varicella meningitis as above that these deficits are secondary to partially functional, but also likely to varicella meningitis and involvement of cranial nerves. Infectious disease also suggest that there could be possible varicella vasculopathy involving both large and small arteries MRI brain (10/15) negative for stroke or tumor; repeat (10/18) unchanged CT angiogram head and neck with small 4 mm right vertebral saccular outpouchings-needs follow-up with interventional neuroradiology as an outpatient Continue aspirin and high intensity statin as per neurology given increased risk for stroke with possible vasculopathy and inflammation from varicella meningitis Lipid panel acceptable, hemoglobin A1c 6.0% Continue neurochecks, stroke scale daily For new onset neuro symptoms, consider further ischemic ischemic workup versus waxing/waning inflammation 2/2 infection which we could consider steroids, will cont. monitor (3) Nausea & vomiting: Plan: Secondary to pain and headache from herpes zoster Improved with IV Compazine, Zofran Cont. IV fluids due to persistent nausea and vomiting on the morning of 10/16 which is now improving (4) Acute facial pain: Plan: -Pain decently controlled -cont. gabapentin again to 600 mg po tid for postherpetic neuralgia. -Discontinued oxycodone as it makes her feel hypersensitive to noise -Continue tramadol 50 Mg p.o. q6h prn for moderate to severe pain, but hopefully can stop this if pain controlled on gabapentin -Continue IV Dilaudid for severe breakthrough pain not amenable to tramadol (5) Zoster: Plan: Was on valacyclovir but now converted to IV acyclovir as above for meningitis initial leukocytosis likely secondary to steroids, improved consider steroids as above Pain control as above (6) Vertebral artery aneurysm: Plan: As above Follow-up with interventional neuroradiology as an outpatient at [place] or [facility] (7) Lupus (systemic lupus erythematosus): Plan: chronic history, not on immunosuppressive therapy -suspect compromised immune system may have made her susceptible to [employer] infection -HIV pending Plan DVT ppx: Heparin SQ FEN/GI: heart healthy Code Status: full Dispo: med tele. Prior to discharge home, would aim for improved control with p.o. medications only of pain, resolution of nausea/vomiting, and case management needs to make arrangements for home IV acyclovir. Admission and Anticipated Discharge Date Admission Date: October 16, 2022 Supervising Physician Co-Signing Physician Notes I personally examined the patient and verified all ferro points of history and exam, discussed case, and agree with decision making with Dr Woodward. Had another strokelike episoderesolved. Ongoing headacheleft side, back of neck and up and around head feels like a pressure. Family present at the bedside, updated to the best my ability and to their satisfaction, answered all questions as best as possible. Vitals noted, in general she is awake and alert pleasant no distress. HEENT normocephalic atraumatic mucous membranes moist. Breathing unlabored no accessory muscle use good effort. Skin shows no rashes no pallor or icterus. Neuro without focal deficits. Osteopathic/musculoskeletal shows left-sided suboccipital musculature to be high tone, tender, decreased range of motioninhibitory pressureimproved. Headache improved some too. Taught how to do as well. VZV/meningitis/shinglescontinue antivirals, pain control, supportive care. Suspect her lupus is the reason that her immune system allow this to happen, but after discussionchecked HIV for completenessstill pending. As far as her strokelike episode earlier today, with MRI continuing to look normal, I suspect this is more neurologic irritability from the infection. Certainly need to pay attention for any potential signs or symptoms of vasculitis, but again with a resolved episode and normal brain parenchyma on repeated MRI imaging, I doubt this to be the case. Home once she is several days free of strokelike episodes, once pain is controlled with meds that would be reasonable to translates at home, and once home IV antivirals are set up/approved/ready. Otherwise as above Tension headache/cervical somatic dysfunctionOMT as above. Taught as well. Subjective Seen at bedside this morning. Laying comfortably in bed with ice pack on L head/neck. Facial pain still present but stable. Tolerating increased gabapentin dose. Was able to ambulate on her own to bathroom a couple hours ago, however, now feels a little weak on her left extremities again. Denies chest pain, sob, vision changes, tinnitus, abd pain, N/V. Review of Systems Review of Systems: All systems reviewed & are unremarkable except as noted in HPI & below Physical Exam Constitutional: WD/WN, vitals as above Eyes: PERRL, conjunctivae normal, anicteric sclerae EOM intact bilaterally (no further palsy) ENMT: external ear and nose normal, oropharynx normal Neck: trachea midline, no thyromegaly Respiratory: normal respiratory effort, lungs clear to auscultation Cardiovascular: RRR, no murmur, no edema Chest (Breasts): Chest: normal inspection of chest Gastrointestinal (Abdomen): normal bowel sounds, soft, nontender, no hepatosplenomegaly Musculoskeletal: Extremities: extremities normal to inspection; no cyanosis and no clubbing Skin: + lesion (Multiple scabbed over erythematous lesions left face, preauricular regions) Neurologic: CN's II-XI intact bilaterally (mild left facial palsy with noticeable with smile), + focal motor deficit (4/5 strength in LUE, 3/5 LLE with mild foot drop, worsened from yesterday) and awake; not confused Speech / Cognition: normal speech Motor/Sensory: + sensory deficit (Decreased sensation to light touch LUE and LLE); no tremor Psychiatric: Orientation: alert, oriented x 3 and cooperative Affect: + anxious affect Lymphatic: no lymphedema Results & Data Results & Data ([facility]) Vital Signs (Past 12 Hours) Vital Signs Temp Pulse Pulse Resp BP BP Pulse Ox 10/18/22 07:23 36.5 C 89 18 154/91 H 97 10/17/22 22:02 89 10/18/22 03:20 37.1 C 87 17 147/91 H 98 10/17/22 23:11 36.6 C 86 20 142/88 H 96 O2 Del Method 10/18/22 07:23 Room Air 10/17/22 22:02 10/18/22 03:20 Room Air 10/17/22 23:11 Room Air Laboratory Results 10/18/22 10/18/22 10/18/22 Range/Units 06:24 06:24 06:24 WBC 8.00 (4.8-10.8) K/ul RBC 4.88 (3.93-5.22) M/uL Hgb 14.2 (12.0-16.0) g/dl Hct 42.2 (34.1-44.9) % MCV 86.5 (80.0-100.0) fL MCH 29.1 (25.0-34.0) pg MCHC 33.6 (32.0-36.0) g/dL RDW Std Deviation 39.0 (36.4-46.3) fL RDW Coeff of Sheryl 12.5 (11.5-14.5) % Plt Count 328 (130-400) K/uL MPV 9.7 (9.4-12.3) fL Sodium 138 (136-145) mmol/L Potassium 4.0 (3.5-5.1) mmol/L Chloride 102 (98-107) mmol/L Carbon Dioxide 32 (21-32) mmol/L Anion Gap 4 (3-11) BUN 9 (6-23) mg/dl Creatinine 0.63 (0.6-1.2) mg/dl Est Cr Clr Drug Dosing 137.6 ml/min Est GFR ( Amer) 128.2 ml/min Est GFR (Non-Af Amer) 110.6 ml/min BUN/Creatinine Ratio 14.3 (10-20) Glucose 99 (70-99(Fasting)) mg/dl Calcium 8.9 (8.5-10.1) mg/dl HIV (1&2) Ag & Ab Conf Pending Resident Activity Tracking Resident Involvement: Resident Care Provided Care Provided: Adult [facility] Medicine
[2022-10-18] MEDS: POLYETHYLENE (MIRALAX) 17 GM PACK PO PRN (08:10)
--- NOTE | 2022-10-18 11:55 | Magnetic Resonance Report ---
MR brain wo con HISTORY: 42 years-old Female worsening L sided weakness acute strokelike symptoms with left-sided we akness. Recent lumbar puncture. COMPARISON: Brain MRI 10/15/2022 TECHNIQUE: Multiplanar sequence MRI of the brain was obtained without the use of IV contrast. FINDINGS: Principal Law Clerk localizer images demonstrate no gross extracranial abnormality. There is no restricted diffusio n to suggest acute or subacute infarct. Midline structures appear unremarkable. The imaged cervical s pine is within normal limits. No acute intracranial hemorrhage, midline shift, abnormal extra-axial c ollection, hydrocephalus or intracranial mass. The volume and signal of the brain parenchyma is withi n normal limits. Cerebral venous sinuses and major arterial flow voids are patent. Skull, orbits and soft tissues are within normal limits. The mastoid air cells and paranasal sinuses are generally clear. IMPRESSION: Stable exam from the study obtained 3 days earlier. No acute intracranial abnormality. ACT 112: Negative or not required by law. The above report was generated using voice recognition software. It may contain grammatical, syntax o r spelling errors. Electronically signed by: Pradip Sheppard M.D. 10/18/2022 11:53 AM
[2022-10-18] MEDS: HYDROmorphone INJ 1 MG/ML SYRINGE IV PRN ×3 (12:26→20:33)
[2022-10-18] MEDS ORDERED: traMADol HCL 50 MG TABLET PO PRN (16:58)
--- NOTE | 2022-10-18 18:23 | Hospitalist Progress Note ---
Date of Service October 18, 2022 Assessment & Plan Admission and Anticipated Discharge Date Admission Date: October 16, 2022 Results & Data Results & Data ([facility]) Vital Signs (Past 12 Hours) Vital Signs Temp Pulse Pulse Resp BP BP Pulse Ox 10/18/22 15:50 97.9 F 81 18 150/91 H 97 10/18/22 15:22 82 10/18/22 11:23 98.1 F 95 H 18 158/102 H 97 10/18/22 07:23 97.7 F 89 18 154/91 H 97 O2 Del Method 10/18/22 15:50 Room Air 10/18/22 15:22 10/18/22 11:23 Room Air 10/18/22 07:23 Room Air PG Care Time/CCT Total # of Minutes Spent Total Time Spent with Patient: Total time spent is greater than 50% in coordination of care (as documented) at patient's floor/unit and/or counseling patient: Coding Level of Care Code None CPT Codes Musculoskeletal - Musculoskeletal: 46090 Osteo Ziggy Tr 1-2 Body regions ([id number])
--- NOTE | 2022-10-18 18:23 | Billing Data ---
Date of Service October 18, 2022 Coding Level of Care Code 00274 Subseq Hosp Care Lvl 3
[2022-10-18] MEDS: ZOLPIDEM TARTRATE 10 MG TAB PO PRN (20:57)
[2022-10-19] MEDS: HYDROmorphone INJ 1 MG/ML SYRINGE IV PRN ×5 (02:21→20:24)
[2022-10-19] MEDS: DEXTROSE 5% IV SCH ×3 (04:25→21:49)
[2022-10-19] MEDS: ACYCLOVIR SOD IV SCH ×3 (04:25→21:49)
--- NOTE | 2022-10-19 06:52 | Hospitalist Progress Note ---
Date of Service October 19, 2022 Assessment & Plan (1) Herpes zoster meningitis: Plan: Admitted with severe left-sided facial and head pain, left lateral nerve palsy , +/- left sided weakness on exam, left hemisensory deficits, left facial droop and dysarthria, with herpes zoster on the left trigeminal distribution LP on 10/16 consistent with brisk pleocytosis, elevated total protein, and positive varicella on bio fire. Gram stain and culture show no organisms. Glucose normal. Generally seems to be improving since on IV antivirals (10/16) with some waxing/waning focal deficits likely due to [employer]ING inflammation -Appreciate infectious disease and neurology consultations -MRI brain (10/15) negative for stroke or tumor; repeat (10/18) unchanged -CT angiogram head and neck with small 4 mm right vertebral saccular outpouchings-needs follow-up with interventional neuroradiology as an outpatient -Discontinued p.o. valacyclovir and converted to acyclovir 10 Mg/KG IV every 8 hours for 2 weeks s/p discharge (2.5~ IV antiviral coverage) -ID also suggest that there could be possible varicella vasculopathy involving both large and small arteries. Continue aspirin and high intensity statin as per neurology given increased risk for stroke with possible vasculopathy and inflammation from varicella meningitis. Lipid panel acceptable, hemoglobin A1c 6.0%. -Continue neurochecks, stroke scale daily -Pain control as below -Case management working on arranging home IV acyclovir, will need peripheral ultrasound-guided IV prior to discharge -Follow CBC, BMP -Follow final Lyme serology on CSF, VDRL, EBV. HIV pending. (2) Nausea & vomiting: Plan: Secondary to pain and headache from herpes zoster Improved with IV Compazine, Zofran D/c'd fluids (10/19). Encouraged oral intake. (3) Acute facial pain: Plan: -Pain decently controlled -cont. gabapentin again to 600 mg po tid for postherpetic neuralgia. -Discontinued oxycodone as it makes her feel hypersensitive to noise -Continue tramadol 50 Mg p.o. q6h scheduled -Continue IV Dilaudid for severe breakthrough pain not amenable to tramadol (4) Zoster: Plan: Was on valacyclovir but now converted to IV acyclovir as above for meningitis initial leukocytosis likely secondary to steroids, improved Pain control as above (5) Vertebral artery aneurysm: Plan: As above Follow-up with interventional neuroradiology as an outpatient at [place] or [facility] (6) Lupus (systemic lupus erythematosus): Plan: chronic history, not on immunosuppressive therapy -suspect compromised immune system may have made her susceptible to SE[employer]ING infection Plan DVT ppx: Heparin SQ FEN/GI: heart healthy Code Status: full Dispo: med tele. Prior to discharge home, would aim for improved control with p.o. medications only of pain, resolution of nausea/vomiting, and case management needs to make arrangements for home IV acyclovir. Admission and Anticipated Discharge Date Admission Date: October 16, 2022 Supervising Physician Co-Signing Physician Notes Attending attestation Pt seen and examined in concert with Dr. Woodward. In agreement with the documented findings as noted in the resident documentation with any exceptions or additions as noted here. No new episodes overnight and feels pain is well controlled on current regimen, though has FARFAN and facial discomfort relieved with icing. Has significant concerns re: FHx of vascular disease resulting in CVAs and cardiac disease and a friend 20 years ago who passed in her company from a spontaneous aneurysmal rupture. VS, nursing notes, labs and consultation notes reviewed. On examination, S1/S2 nl RRR no MCG. CTAB. Abd NT/ND BS+ve. CNII-XII grossly intact. VZV meningitis/encephalitis - ID, neurology consult - continue acyclovir for course as noted. Pain management with IV hydromorphone with goal of PO management. Vertebral artery aneurysm - extensive counseling on the course of evaluation and predominant reassurance regarding her acute course, need for further evaluation and management. Else see resident documentation as noted. Subjective Seen at bedside this morning. Laying comfortably in bed. Pain better controlled on dilaudid doses. Tolerating gabapentin. No more focal deficits, left sided weakness improved. Still having posterior headache/tenderness. Denies chest pain, sob, vision changes, tinnitus, abd pain, N/V. Review of Systems Review of Systems: All systems reviewed & are unremarkable except as noted in HPI & below Physical Exam Constitutional: WD/WN, vitals as above Eyes: PERRL, conjunctivae normal, anicteric sclerae EOM intact bilaterally (no further palsy) ENMT: external ear and nose normal, oropharynx normal Neck: trachea midline, no thyromegaly Respiratory: normal respiratory effort, lungs clear to auscultation Cardiovascular: RRR, no murmur, no edema Chest (Breasts): Chest: normal inspection of chest Gastrointestinal (Abdomen): normal bowel sounds, soft, nontender, no hepatosplenomegaly Musculoskeletal: Extremities: extremities normal to inspection; no cyanosis and no clubbing Skin: + lesion (Multiple scabbed over erythematous lesions left face, preauricular regions) Neurologic: CN's II-XI intact bilaterally (mild left facial palsy with noticeable with smile), deep tendon reflexes 2+ bilaterally, + focal motor deficit (4+/5 strength in LUE, 4+/5 LLE, improved from yesterday) and awake; not confused Speech / Cognition: normal speech Motor/Sensory: + sensory deficit (Decreased sensation to light touch LUE and LLE); no tremor Psychiatric: Orientation: alert, oriented x 3 and cooperative Affect: + anxious affect Lymphatic: no lymphedema Results & Data Results & Data ([facility]) Vital Signs (Past 12 Hours) Vital Signs Temp Pulse Pulse Resp BP Pulse Ox O2 Del Method 10/19/22 03:11 36.9 C 78 18 139/90 92 Room Air 10/18/22 22:50 37 C 83 18 133/77 96 Room Air 10/18/22 23:23 93 H 10/18/22 19:51 36.8 C 84 18 162/99 H 97 Room Air Laboratory Results 10/19/22 10/19/22 Range/Units 09:54 09:54 WBC 11.40 H (4.8-10.8) K/ul RBC 5.24 H (3.93-5.22) M/uL Hgb 15.0 (12.0-16.0) g/dl Hct 45.1 H (34.1-44.9) % MCV 86.1 (80.0-100.0) fL MCH 28.6 (25.0-34.0) pg MCHC 33.3 (32.0-36.0) g/dL RDW Std Deviation 38.9 (36.4-46.3) fL RDW Coeff of Sheryl 12.6 (11.5-14.5) % Plt Count 405 H (130-400) K/uL MPV 9.3 L (9.4-12.3) fL Immature Gran % (Auto) 0.6 % Neut % (Auto) 63.0 % Lymph % (Auto) 26.1 % [place] % (Auto) 7.3 % Eos % (Auto) 2.5 % Baso % (Auto) 0.5 % Neut # (Auto) 7.18 H (1.4-6.5) K/uL Lymph # (Auto) 2.97 (1.2-3.4) K/uL [place] # (Auto) 0.83 H (0.24-0.82) K/uL Eos # (Auto) 0.29 (0-0.50) K/uL Baso # (Auto) 0.06 (0-0.2) K/uL Immature Gran # (Auto) 0.07 H (0.00-0.02) K/uL Sodium 140 (136-145) mmol/L Potassium 3.8 (3.5-5.1) mmol/L Chloride 101 (98-107) mmol/L Carbon Dioxide 35 H (21-32) mmol/L Anion Gap 4 (3-11) BUN 7 (6-23) mg/dl Creatinine 0.70 (0.6-1.2) mg/dl Est Cr Clr Drug Dosing 124.2 ml/min Est GFR ( Amer) 123.9 ml/min Est GFR (Non-Af Amer) 106.9 ml/min BUN/Creatinine Ratio 10.0 (10-20) Glucose 101 H (70-99(Fasting)) mg/dl Calcium 9.5 (8.5-10.1) mg/dl Resident Activity Tracking Resident Involvement: Resident Care Provided Care Provided: Adult [facility] Medicine
[2022-10-19] MEDS: GABAPENTIN 600 MG TAB PO SCH ×3 (07:46→21:51)
[2022-10-19] MEDS: HEPARIN SOD 5,000 UNIT/0.5 ML VIAL SQ SCH ×3 (07:46→23:15)
[2022-10-19] MEDS: ASPIRIN 81 MG ECTAB PO SCH (07:46)
[2022-10-19] MEDS: ATORVASTATIN 40 MG TAB PO SCH (07:46)
[2022-10-19] MEDS: PANTOprazole 40 MG TAB PO SCH (07:46)
--- NOTE | 2022-10-19 07:48 | Infectious Disease Progress Nt ---
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 ID consulted today based on findings concerning for VZV mengino-encephalitis. See HPI for further details. Patient on Valtrex BID dosing and steroids prior to admission and p/w stroke like symptoms with L sided facial drooping. CTA showed beaded appearance with 2 saccular outpouchings of the distal cervical portion of the right vertebral artery at C2. The outpouching measure up to 4 mm. Thrombolytic therapy not initiated. Patient continued on po Valtrex (previously only on BID, increased to TID., given pain medication in addition to gabapentin. Patient underwent MRI with contrast Brain: : No acute intracranial abnormality and LP today, CSF WBC 49, RBC 50 (tube 3), protein 61, CSF VZV PCR detected. Patient was started on IV Acyclovir Discussion: Patient with evidence of VZV meningitis and symptoms of trigeminal nerve distribution of disease. CTA showing right vertebral artery aneurysm. LP shows A modest pleocytosis and positive VZV detection. Concern for possible VZV vasculopathy given CTA findings.VZV can involve both large and small arteries. Mixed large and small artery disease is generally seen more often than pure small artery disease; pure large artery disease occurs least often, Continue with IV Acyclovir 10mg/kg IV q8 hours Recommend: -Continue with Acyclovir 10mg/kg IV q8 hours -Plans for repeat CTA, will d/w Neurology when this will occur. I would favor she be on Acyclovir towards end of therapy -Anticipate she will need minimum of 2 week therapy, however this would need to be extended based on clinical response and possible imaging as above Will discuss with Primary team Thank you for allowing me to participate in the care of your patient. Jocelyne Zamora MD [facility], [facility] Admission and Anticipated Discharge Date Admission Date: October 16, 2022 Subjective Subsequent visit was provided via telemedicine using two-way real-time interactive telecommunication between the patient and the telemedicine provider. For the duration of the visit, the provider was performing the assessment from a different facility than the patient. This includesuse of bluetooth stethoscope forauscultationperformed by the telepresenter that the t elemedicine provider can hear if described in the physical exam. Electronic Engraver contact information: Please call [facility] Center [phone]. (Phone Number For Physician Use Only) After establishing a telemedicine visit, patient was: Patient was verified with two unique identifiers, Patient/authorized rep acknowledged consent and understanding and Gave permission to continue telehealth session Subsequent Time Spent w Inpatient: 35 minutes 24 hours/OTW Patient was started on IV Acyclovir on 10/16 S: Patient is feeling better, Her left sided weakness has improved. She still has some neck stiffness but this is better. Physical Exam 2 ENMT: No vesicles within ear Neck: some pain with flexion/extension Results & Data ([facility]) Vital Signs (Past 12 Hours) Vital Signs Temp Pulse Pulse Resp BP Pulse Ox O2 Del Method 10/19/22 03:11 36.9 C 78 18 139/90 92 Room Air 10/18/22 22:50 37 C 83 18 133/77 96 Room Air 10/18/22 23:23 93 H 10/18/22 19:51 36.8 C 84 18 162/99 H 97 Room Air Laboratory Results Laboratory Results - last 48 hr 10/17/22 10/18/22 10/18/22 06:39 06:24 06:24 WBC 8.00 RBC 4.88 Hgb 14.2 Hct 42.2 MCV 86.5 MCH 29.1 MCHC 33.6 RDW Std Deviation 39.0 RDW Coeff of Sheryl 12.5 Plt Count 328 MPV 9.7 Sodium 137 138 Potassium 3.9 4.0 Chloride 104 102 Carbon Dioxide 28 32 Anion Gap 5 4 BUN 14 9 Creatinine 0.60 0.63 Est Cr Clr Drug Dosing 127.6 137.6 Est GFR ( Amer) 130.3 128.2 Est GFR (Non-Af Amer) 112.4 110.6 BUN/Creatinine Ratio 23.3 H 14.3 Glucose 107 H 99 Calcium 8.4 L 8.9 Laboratory Tests 10/16/22 10/16/22 10/16/22 10:20 10:20 10:20 CSF Color Colorless Xanthrochromic No xanthochromia CSF WBC 49 H* CSF RBC 50 CSF Glucose 64 CSF Total Protein 61.4 H CSF VZV DNA (PCR) DETECTED A* Diagnostic Findings Lumbar Puncture Fluoroscopy 10/16/22 16:01 10/16/2022 10:43 AM FL lumbar puncture diagnostic EXAMINATION: Fluoroscopic-guided lumbar puncture. 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 A confirmatory timeout was performed prior to initiation of the procedure. A suitable puncture site at the L2-L3 level was obtained using fluoroscopy. The site was then cleaned and prepped in the usual sterile fashion. A total of 5 mL of 1% lidocaine was infused into the subcutaneous tissues during the procedure to achieve local anesthesia. Using a 20-gauge 3 1/2 inch spinal needle, the thecal sac was accessed under fluoroscopic guidance with the patient in the prone position. Approximately 8 mL of clear CSF was collected into four separate vials. The spinal needle with stylet in place was removed and pressure was placed over the puncture site until hemostasis was achieved. There were no immediate complications. The patient tolerated the procedure well. IMPRESSION: Fluoroscopic guided lumbar puncture. Approximately 8 mL of clear CSF was collected into four separate vials. No immediate complications. Fluoroscopy time: 1.5 minutes. ACT 112: Negative or not required by law. Electronically signed by: Robson Melo M.D. 10/16/2022 11:58 AM Brain MRI 10/18/22 10:04 MR brain wo con HISTORY: 42 years-old Female worsening L sided weakness acute strokelike symptoms with left-sided weakness. Recent lumbar puncture. COMPARISON: Brain MRI 10/15/2022 TECHNIQUE: Multiplanar sequence MRI of the brain was obtained without the use of IV contrast. 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 There is no restricted diffusion to suggest acute or subacute infarct. Midline structures appear unremarkable. The imaged cervical spine is within normal limits. No acute intracranial hemorrhage, midline shift, abnormal extra-axial collection, hydrocephalus or intracranial mass. The volume and signal of the brain parenchyma is within normal limits. Cerebral venous sinuses and major arterial flow voids are patent. Skull, orbits and soft tissues are within normal limits. The mastoid air cells and paranasal sinuses are generally clear. IMPRESSION: Stable exam from the study obtained 3 days earlier. No acute intracranial abnormality. ACT 112: Negative or not required by law. The above report was generated using voice recognition software. It may contain grammatical, syntax or spelling errors. Electronically signed by: Pradip Sheppard M.D. 10/18/2022 11:53 AM Medications Administered Current Inpatient Medications Acetaminophen (Acetaminophen 500 Mg Tab) 1,000 mg PO Q8H PRN PRN Reason: Pain Stop: 11/16/22 15:46 Al Hydrox/Mg Hydrox/Simethicone (Aluminum/Magnesium Susp 30 Ml Udc) 30 ml PO Q6H PRN PRN Reason: Dyspepsia Stop: 11/13/22 15:41 Aspirin (Aspirin 81 Mg Ectab) 81 mg PO DAILY [facility] Stop: 11/13/22 15:59 Last Admin: 10/19/22 07:46 Dose: 81 mg Atorvastatin Calcium (Atorvastatin 40 Mg Tab) 40 mg PO QAM [facility] Stop: 11/14/22 08:59 Last Admin: 10/19/22 07:46 Dose: 40 mg Gabapentin (Gabapentin 600 Mg Tab) 600 mg PO TID [facility] Stop: 11/16/22 20:59 Last Admin: 10/19/22 07:46 Dose: 600 mg Heparin Sodium (Porcine) (Heparin Sod 5,000 Unit/0.5 Ml Vial) 5,000 units SQ Q8H JUAN Stop: 11/13/22 16:14 Last Admin: 10/19/22 07:46 Dose: 5,000 units Hydralazine HCl (Hydralazine Hcl 20 Mg/Ml Vial) 10 mg IV Q8 PRN PRN Reason: sbp>185 or dbp>95 Stop: 11/13/22 15:41 Hydromorphone HCl (Hydromorphone Inj 0.5 Mg/0.5 Ml Syr) 0.5 mg IV Q4H PRN PRN Reason: Pain Scale 4,5,6 Stop: 10/28/22 15:41 Last Admin: 10/16/22 18:53 Dose: 0.5 mg Hydromorphone HCl (Hydromorphone Inj 1 Mg/Ml Syringe) 1 mg IV Q4H PRN PRN Reason: Pain Scale 7,8,9,10 Stop: 10/28/22 15:41 Last Admin: 10/19/22 06:14 Dose: 1 mg Prochlorperazine 10 mg/ (Syringe) 10 mls @ 5 mls/min IV Q6H PRN PRN Reason: Nausea And Vomiting Stop: 11/15/22 08:18 Last Admin: 10/16/22 16:16 Dose: 5 mls/min Lactated Ringer's (Lr) 1,000 mls @ 125 mls/hr IV .Q8H [facility] Stop: 11/15/22 08:29 Last Admin: 10/19/22 07:50 Dose: 125 mls/hr Acyclovir Sodium 880 mg/ (Dextrose) 117.6 mls @ 100 mls/hr IV Q8H [facility] Stop: 10/26/22 12:59 Last Infusion: 10/19/22 06:01 Dose: Infused Miscellaneous (Order Awaiting Action (Estradiol 0.5 Mg Tablet)) 1 each N/A QS [facility] Stop: 11/13/22 15:59 Last Admin: 10/19/22 06:57 Dose: Not Given Ondansetron HCl (Ondansetron Inj 2 Mg/Ml 2 Ml Vial) 4 mg IV Q6H PRN PRN Reason: Nausea Stop: 11/13/22 15:41 Last Admin: 10/16/22 06:29 Dose: 4 mg Pantoprazole Sodium (Pantoprazole 40 Mg Tab) 40 mg PO DAILY [facility] Stop: 11/14/22 08:59 Last Admin: 10/19/22 07:46 Dose: 40 mg Polyethylene Glycol (Polyethylene (Miralax) 17 Gm Pack) 17 gm PO DAILY PRN PRN Reason: Constipation Stop: 11/17/22 07:50 Last Admin: 10/18/22 08:10 Dose: 17 gm Tramadol HCl (Tramadol Hcl 50 Mg Tablet) 50 mg PO Q6H PRN PRN Reason: mild-moderate pain Stop: 11/14/22 13:29 Zolpidem Tartrate (Zolpidem Tartrate 10 Mg Tab) 10 mg PO HS PRN PRN Reason: Sleep Stop: 11/13/22 15:41 Last Admin: 10/18/22 20:57 Dose: 10 mg
[2022-10-19] MEDS: LACTATED RINGER'S 1,000 ML IV SCH ×2 (07:50→15:59)
[2022-10-19 10:17] LABS: Basophils # (auto) 0.06 K/uL (0-0.2); Basophils % (auto) 0.5 %; Eosinophils # (auto) 0.29 K/uL (0-0.50); Eosinophils % (auto) 2.5 %; Hematocrit (blood only) 45.1 % (34.1-44.9); Immature Granulocytes # (auto) 0.07 K/uL (0.00-0.02); Immature Granulocytes % (auto) 0.6 %; Lymphocytes # (auto) 2.97 K/uL (1.2-3.4); Lymphocytes % (auto) 26.1 %; Mean Corpuscular Hemoglobin 28.6 pg (25.0-34.0); Mean Corpuscular Hgb Conc 33.3 g/dL (32.0-36.0); Mean Corpuscular Volume 86.1 fL (80.0-100.0); Mean Platelet Volume 9.3 fL (9.4-12.3); Monocytes # (auto) 0.83 K/uL (0.24-0.82); Monocytes % (auto) 7.3 %; Neutrophils # (auto) 7.18 K/uL (1.4-6.5); Platelet Count 405 K/uL (130-400); RDW Coefficient of Variation 12.6 % (11.5-14.5); RDW Standard Deviation 38.9 fL (36.4-46.3); Red Blood Count 5.24 M/uL (3.93-5.22)
[2022-10-19 10:36] LABS: Calcium 9.5 mg/dl (8.5-10.1); Creatinine Clr Calc Pharmacy 124.2 ml/min; Est GFR (African American) 123.9 ml/min; Est GFR (Non-African American) 106.9 ml/min; Potassium 3.8 mmol/L (3.5-5.1)
[2022-10-19] MEDS: traMADol HCL 50 MG TABLET PO SCH ×3 (10:41→21:49)
[2022-10-19] MEDS ORDERED: LORazepam 1 MG in SYRINGE 0 ML IV STA (13:19)
[2022-10-19] MEDS: ZOLPIDEM TARTRATE 10 MG TAB PO PRN (22:08)
[2022-10-20] MEDS: ACYCLOVIR SOD IV SCH ×3 (04:25→20:04)
[2022-10-20] MEDS: traMADol HCL 50 MG TABLET PO SCH ×3 (04:25→16:48)
[2022-10-20] MEDS: DEXTROSE 5% IV SCH ×3 (04:25→20:04)
[2022-10-20 06:17] LABS: Basophils # (auto) 0.08 K/uL (0-0.2); Basophils % (auto) 0.8 %; Eosinophils # (auto) 0.27 K/uL (0-0.50); Eosinophils % (auto) 2.6 %; Hematocrit (blood only) 43.3 % (34.1-44.9); Hemoglobin 14.4 g/dl (12.0-16.0); Immature Granulocytes # (auto) 0.09 K/uL (0.00-0.02); Immature Granulocytes % (auto) 0.9 %; Lymphocytes # (auto) 2.06 K/uL (1.2-3.4); Lymphocytes % (auto) 19.8 %; Mean Corpuscular Hemoglobin 28.8 pg (25.0-34.0); Mean Corpuscular Hgb Conc 33.3 g/dL (32.0-36.0); Mean Corpuscular Volume 86.6 fL (80.0-100.0); Mean Platelet Volume 9.2 fL (9.4-12.3); Monocytes # (auto) 0.81 K/uL (0.24-0.82); Monocytes % (auto) 7.8 %; Neutrophils # (auto) 7.11 K/uL (1.4-6.5); Neutrophils % (auto) 68.1 %; Platelet Count 360 K/uL (130-400); RDW Coefficient of Variation 12.5 % (11.5-14.5); RDW Standard Deviation 38.8 fL (36.4-46.3); White Blood Count 10.42 K/ul (4.8-10.8)
[2022-10-20 06:49] LABS: BUN Creatinine Ratio 17.1 (10-20); Calcium 9.3 mg/dl (8.5-10.1); Creatinine Clr Calc Pharmacy 124.2 ml/min; Est GFR (African American) 123.9 ml/min; Est GFR (Non-African American) 106.9 ml/min
--- NOTE | 2022-10-20 06:56 | Discharge Summary ---
Date of Service October 20, 2022 Admission HPI Per Admitting Provider 42 yo female patient presents to the emergency department with complaints of left-sided facial pain and rash. Patient states she was diagnosed with shingles on the of this month. The rash seemed to be getting better as well as the pain however the last 24 hours or so the rash seemed to progress. She states the pain is most significant in the left ear. She denies any fevers. 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 states she was fine prior to him leaving for work at 8:00. Her doctor's appointment was at 905. The patient is not able to give a last known well other than not. Patient had resolved at the doctor's office but then triage have another episode, nurses felt the left engine lathe set up operator tool strength was slightly weaker as well with the left sided facial droop. Initially upon Dr. Dodson evaluation in the room, patient was neurologically intact, tearful and clutching the left side of the face. About 5 minutes into the interview and after her 's arrival into the room, the patient developed a left lower face droop, right sided tongue deviation and was unable to give her name and age. Stroke alert was called. According to description of the neurology telestroke person did not feel this would warrant thrombolytic therapy and did not feel that the description of possible aneurysms seen on CT of the head, in the distal cervical portion of the right vertebral artery at C2 could be associated with her symptom complex. There was recommendation for a possible additional imaging from the telestroke person. I personally spoke with Dr. Manny Kohler who feels that since the patient had an MRI 2 weeks ago without evidence of significant concerns the only reason he would recommend additional imaging would be if the patient develops progressive neurological changes then an MRI of the brain may be beneficial. He did mention that he feels there may be some concern for fibromuscular dysplasia we will discuss this with neurology consult on this patient Patient is admitted for pain control continue with treatment of her zoster Discharge Exam Constitutional WD/WN, vitals as above Eyes PERRL, conjunctivae normal, anicteric sclerae EOM intact bilaterally (no further palsy) ENMT external ear and nose normal, oropharynx normal Neck trachea midline, no thyromegaly Respiratory normal respiratory effort, lungs clear to auscultation Cardiovascular RRR, no murmur, no edema Chest (Breasts) Chest: normal inspection of chest Gastrointestinal (Abdomen) normal bowel sounds, soft, nontender, no hepatosplenomegaly Musculoskeletal Extremities: extremities normal to inspection; no cyanosis and no clubbing Skin + lesion (Multiple scabbed over erythematous lesions left face, preauricular regions) Neurologic CN's II-XI intact bilaterally (mild left facial palsy with noticeable with smile), deep tendon reflexes 2+ bilaterally, + focal motor deficit (4+/5 strength in LUE, 4+/5 LLE, improved from yesterday) and awake; not confused Speech / Cognition: normal speech Motor/Sensory: + sensory deficit (Decreased sensation to light touch LUE and LLE); no tremor Psychiatric Orientation: alert, oriented x 3 and cooperative Affect: + anxious affect Lymphatic no lymphedema Discharge Data Allergies Allergy/AdvReac Type Severity Reaction Status Date / Time hydrocodone [From Vicodin] Allergy Intermediate ITCHY Verified 10/14/22 15:01 RASH, RESTLESSNESS levofloxacin [From Levaquin] Allergy Intermediate ITCHY Verified 10/14/22 15:01 RASH, RESTLESSNESS oxycodone [From Percocet] Allergy Intermediate ITCHY Verified 10/14/22 15:01 RASH, RESTLESSNESS Consultations 10/14/22 11:48 Consult Neurology Stat 10/16/22 12:49 Consult Infectious Diseases Routine Ordered Studies 10/14/22 11:27 CT angio head w con Stat CT angio neck with con Stat CT head/brain wo con Stat 10/15/22 12:07 MRI Brain [MR brain wo/w con] Stat 10/16/22 16:01 FL lumbar puncture diagnostic Routine 10/18/22 10:04 MR brain wo con Stat Hospital Course (1) Herpes zoster meningitis: Admitted with severe left-sided facial and head pain, left lateral nerve palsy , +/- left sided weakness on exam, left hemisensory deficits, left facial droop and dysarthria, with herpes zoster on the left trigeminal distribution LP on 10/16 consistent with brisk pleocytosis, elevated total protein, and positive varicella on bio fire. Gram stain and culture show no organisms. Glucose normal. 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 valacyclovir and converted to acyclovir 10 Mg/KG IV every 8 hours for 2 weeks s/p discharge (2.5~ IV antiviral coverage) -ID also suggest that there could be possible varicella vasculopathy involving both large and small arteries. Continue aspirin and high intensity statin as per neurology given increased risk for stroke with possible vasculopathy and inflammation from varicella meningitis. Lipid panel acceptable, hemoglobin A1c 6.0%. -Continue neurochecks, stroke scale daily -Pain control as below -Case management working on arranging home IV acyclovir, will need peripheral ultrasound-guided IV prior to discharge -Follow CBC, BMP -Follow final Lyme serology on CSF, VDRL, EBV. HIV pending. (2) Nausea & vomiting: Secondary to pain and headache from herpes zoster Improved with IV Compazine, Zofran D/c'd fluids (10/19). Encouraged oral intake. (3) Acute facial pain: -Pain decently controlled -cont. gabapentin again to 600 mg po tid for postherpetic neuralgia. -Discontinued oxycodone as it makes her feel hypersensitive to noise -Continue tramadol 50 Mg p.o. 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 Prior to discharge home, would aim for improved control with p.o. medications only of pain, resolution of nausea/vomiting, and case management needs to make arrangements for home IV acyclovir. Discharge Plan Discharge Items Patient Disposition: Home - Home Health Services Reason For Visit: TIA? FACIAL ZOSTER. 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 Activity: Per Instructions section Non-emergency contact: Primary Care Provider and Neurologist Call non-emergency contact if: you have any medication questions Follow-up/Referrals: Abbey Rosario DO [Physician] - (first available, any provider ) Marta Hardy [Primary Care Provider] - Chaparro Stevenson MD [Outside Practitioners] - (first available, any provider) Diet: Heart Healthy Addtl Attending Provider Instructions: You were admitted to the hospital with complaints of left-sided facial pain and a rash which was suspected as shingles treated in the outpatient setting with oral antivirals. Bilateral primary care, there was concern for left-sided focal deficits which prompted immediate ER care. In the hospital you were found to have an infection of your meninges secondary to the shingles. The superficial viral infection known as varicella had spread from your skin to your meninges causing a meningitis. Is possible that you are more susceptible to a meningeal infection secondary to your lupus. However, for completion, we did obtain an HIV test which is still pending. We started you on IV antiviral medications and your symptoms did appear to improve. You have been discharged on 2 weeks of continued antiviral treatment. The exact etiology of your left-sided deficits are unclear at this time however it is possible this was from brain inflammation and/or a vascular phenomenon. This infection on your brain has been shown to elicit transient vascular constriction similar to mimicking a stroke. Thankfully your symptoms were short lasted and should continue to improve with treatment. A large component of your symptoms will stem from pain. We will discharge you with prescription of oral pain medication which should help acutely. As we read the infection with our antivirals your pain should also begin to improve by the day. You should follow-up with your primary care provider in the next 1 to 2 weeks to assess progress. You will also be scheduled with [facility] neurology and interventional radiology teams. Incidentally upon brain imaging you were also found to have 2 right vertebral outpouchings (aneurysms). It is unclear if these were present prior to the infection or may have been caused by the infection. Given your family history this is something that we do want to follow-up with in the outpatient setting. We have referred you to the appropriate parties as above who will provide further recommendations on management. Based on your med list you are on estrogen supplementation at home. As this can put you at a higher risk for a stroke please hold this medication until further advised by your primary care provider. For the above diagnoses you will be started on new medications as below. -81 mg aspirin once daily for stroke prevention -Atorvastatin 40 mg once daily for vascular health -Gabapentin 600 mg 3 times a day for nerve pain -Tramadol 50 mg every 6 hours as needed for pain as well -zofran as needed for nausea Pending Studies at Discharge: Yes (HIV) Stand-Alone Forms: My [facility], Smoking Cessation Medications and DC Order Prescriptions: New atorvastatin 40 mg Tablet 40 mg PO QAM Qty: 30 0RF gabapentin 600 mg Tablet 600 mg PO TID Qty: 90 0RF aspirin 81 mg Tablet,Delayed Release (Dr/Ec) 81 mg PO DAILY Qty: 30 0RF ondansetron HCl 4 mg tablet 4 mg PO Q6H PRN (Reason: nausea and vomiting) Qty: 30 0RF tramadol 50 mg Tablet 50 mg PO Q6H PRN (Reason: pain) 7 Days Qty: 30 0RF Continued pantoprazole 40 mg Tablet,Delayed Release (Dr/Ec) 40 mg PO HS zolpidem [Ambien] 10 mg Tablet 10 mg PO HS PRN (Reason: Sleep) Vyvanse 60 mg Capsule 60 mg PO DAILY Rx Instructions: PER PT "HAVEN'T TAKEN FOR ABOUT 4 DAYS". tizanidine 2 mg tablet 2 mg PO DIRECTED PRN (Reason: MUSCLE SPASMS) paroxetine HCl 40 mg tablet 40 mg PO HS Discontinued estradiol 0.5 mg Tablet 0.5 mg PO DAILY Rx Instructions: off 5 days; repeat cycle valacyclovir 1 gram tablet 1 mg PO TID Rx Instructions: STARTED 10/09/22 FOR 10 DAYS. prednisone 50 mg tablet 50 mg PO DAILY Rx Instructions: STARTED 10/09/22 FOR 5 DAYS. Krames/Other Patient Handouts: Prediabetes, 5 Steps for Eating Healthier Admission Data Admit Date/Time: 10/16/22 10:21 Attending Provider: Juan Garcia Admit Provider: Serge Gilliland Primary Care Provider: Marta Hardy Other Providers: López Colón ; Jocelyne Zamora ; [facility]
[2022-10-20] MEDS: ASPIRIN 81 MG ECTAB PO SCH (08:14)
[2022-10-20] MEDS: HEPARIN SOD 5,000 UNIT/0.5 ML VIAL SQ SCH ×2 (08:14→16:48)
[2022-10-20] MEDS: GABAPENTIN 600 MG TAB PO SCH ×3 (08:14→20:04)
[2022-10-20] MEDS: PANTOprazole 40 MG TAB PO SCH (08:15)
[2022-10-20] MEDS: ATORVASTATIN 40 MG TAB PO SCH (08:15)
[2022-10-20] MEDS: HYDROmorphone INJ 1 MG/ML SYRINGE IV PRN ×2 (13:19→19:58)
--- NOTE | 2022-10-20 16:43 | Infectious Disease Progress Nt ---
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 1 week [employer]ING [employer], otherwise healthy F who was admitted to [facility] on 10/14 with L sided facial pain, rash, L facial droop and speech difficulty. ID consulted today based on findings concerning for VZV mengino-encephalitis. See HPI for further details. Patient on Valtrex BID dosing and steroids prior to admission and p/w stroke like symptoms with L sided facial drooping. CTA showed beaded appearance with 2 saccular outpouchings of the distal cervical portion of the right vertebral artery at C2. The outpouching measure up to 4 mm. Thrombolytic therapy not initiated. Patient continued on po Valtrex (previously only on BID, increased to TID., given pain medication in addition to gabapentin. Patient underwent MRI with contrast Brain: : No acute intracranial abnormality and LP today, CSF WBC 49, RBC 50 (tube 3), protein 61, CSF VZV PCR detected. P atient was started on IV Acyclovir Discussion: Patient with evidence of VZV meningitis and symptoms of trigeminal nerve distribution of disease. CTA showing right vertebral artery aneurysm. LP shows A modest pleocytosis and positive VZV detection. Concern for possible VZV vasculopathy given CTA findings.VZV can involve both large and small arteries. Mixed large and small artery disease is generally seen more often than pure small artery disease; pure large artery disease occurs least often, Continue with IV Acyclovir 10mg/kg IV q8 hours Recommend: -Continue with Acyclovir 10mg/kg IV q8 hours, plan will be to continue for 2 weeks post discharge 10/20-11/04/22 -Recommend weekly CBC with diff and CMP while on IV therapy -Plans for repeat CTA per Neurology -Anticipate she will need minimum of 2 week therapy, however this would need to be extended based on clinical response and possible imaging as above Thank you for allowing me to participate in the care of your patient. Jocelyne Zamora MD [facility], [facility] Admission and Anticipated Discharge Date Admission Date: October 16, 2022 Subjective This patient recommendation is based on a telemedicine consult request which was completed asynchronously through chart review and information provided by the primary physician. The patient was not seen or examined today. The evaluation is consultative in nature and all patient care and treatment decisions can either be accepted or rejected by the patient's primary hospital-based treating physician using their own independent medical judgment for their patient. Results & Data ([facility]) Vital Signs (Past 12 Hours) Vital Signs Temp Pulse Pulse Resp BP BP Pulse Ox 10/20/22 15:24 36.5 C 89 20 151/97 H 98 10/20/22 08:00 97 H 10/20/22 11:48 36.8 C 97 H 20 132/94 99 10/20/22 07:58 36.4 C L 99 H 18 121/83 100 O2 Del Method 10/20/22 15:24 Room Air 10/20/22 08:00 10/20/22 11:48 Room Air 10/20/22 07:58 Room Air Laboratory Results Laboratory Results - last 48 hr 10/18/22 10/19/22 10/19/22 06:24 09:54 09:54 WBC 11.40 H RBC 5.24 H Hgb 15.0 Hct 45.1 H MCV 86.1 MCH 28.6 MCHC 33.3 RDW Std Deviation 38.9 RDW Coeff of Sheryl 12.6 Plt Count 405 H MPV 9.3 L Immature Gran % (Auto) 0.6 Neut % (Auto) 63.0 Lymph % (Auto) 26.1 Calhoun % (Auto) 7.3 Eos % (Auto) 2.5 Baso % (Auto) 0.5 Neut # (Auto) 7.18 H Lymph # (Auto) 2.97 Calhoun # (Auto) 0.83 H Eos # (Auto) 0.29 Baso # (Auto) 0.06 Immature Gran # (Auto) 0.07 H Sodium 140 Potassium 3.8 Chloride 101 Carbon Dioxide 35 H Anion Gap 4 BUN 7 Creatinine 0.70 Est Cr Clr Drug Dosing 124.2 Est GFR ( Amer) 123.9 Est GFR (Non-Af Amer) 106.9 BUN/Creatinine Ratio 10.0 Glucose 101 H Calcium 9.5 HIV (1&2) Ag & Ab Conf NON-REACTIVE 10/20/22 10/20/22 05:47 05:47 WBC 10.42 RBC 5.00 Hgb 14.4 Hct 43.3 MCV 86.6 MCH 28.8 MCHC 33.3 RDW Std Deviation 38.8 RDW Coeff of Sheryl 12.5 Plt Count 360 MPV 9.2 L Immature Gran % (Auto) 0.9 Neut % (Auto) 68.1 Lymph % (Auto) 19.8 Calhoun % (Auto) 7.8 Eos % (Auto) 2.6 Baso % (Auto) 0.8 Neut # (Auto) 7.11 H Lymph # (Auto) 2.06 Calhoun # (Auto) 0.81 Eos # (Auto) 0.27 Baso # (Auto) 0.08 Immature Gran # (Auto) 0.09 H Sodium 136 Potassium 4.0 Chloride 101 Carbon Dioxide 29 Anion Gap 6 BUN 12 Creatinine 0.70 Est Cr Clr Drug Dosing 124.2 Est GFR ( Amer) 123.9 Est GFR (Non-Af Amer) 106.9 BUN/Creatinine Ratio 17.1 Glucose 121 H Calcium 9.3 HIV (1&2) Ag & Ab Conf Microbiology 10/16/22 10:20 Cerebral Spinal Fluid Gram Stain - Final 10/16/22 10:20 Cerebral Spinal Fluid CSF Culture - Final No growth (1) Shingles Herpes zoster complications: without complications Qualified Code(s): B02.9 - Zoster without complications
--- NOTE | 2022-10-20 17:04 | Hospitalist Progress Note ---
Date of Service October 20, 2022 Assessment & Plan (1) Herpes zoster meningitis: Plan: Admitted with severe left-sided facial and head pain, left lateral nerve palsy , +/- left sided weakness on exam, left hemisensory deficits, left facial droop and dysarthria, with herpes zoster on the left trigeminal distribution LP on 10/16 consistent with brisk pleocytosis, elevated total protein, and positive varicella on bio fire. Gram stain and culture show no organisms. Glucose normal. Generally seems to be improving since on IV antivirals (10/16) with some waxing/waning focal deficits likely due to IT SUPPORT SPECIALIST inflammation -Appreciate infectious disease and neurology consultations -MRI brain (10/15) negative for stroke or tumor; repeat (10/18) unchanged -CT angiogram head and neck with small 4 mm right vertebral saccular outpouchings-needs follow-up with interventional neuroradiology as an outpatient -Discontinued p.o. valacyclovir and converted to acyclovir 10 Mg/KG IV every 8 hours for 2 weeks s/p discharge (2.5~ IV antiviral coverage) -ID also suggest that there could be possible varicella vasculopathy involving both large and small arteries. Continue aspirin and high intensity statin as per neurology given increased risk for stroke with possible vasculopathy and inflammation from varicella meningitis. Lipid panel acceptable, hemoglobin A1c 6.0%. -Continue neuro checks, stroke scale daily -Pain control as below -Case management working on arranging home IV acyclovir; peripheral ultrasound- guided IV prior placed -Follow final Lyme serology on CSF, VDRL, EBV. HIV pending. (2) Nausea & vomiting: Plan: Secondary to pain and headache from herpes zoster Improved with IV Compazine, Zofran D/c'd fluids (10/19). Encouraged oral intake. -discharge on zofran for nausea (3) Acute facial pain: Plan: -Pain decently controlled -cont. gabapentin again to 600 mg po tid for postherpetic neuralgia. -Discontinued oxycodone as it makes her feel hypersensitive to noise -Continue tramadol 50mg po q6h scheduled -Continue IV Dilaudid for severe breakthrough pain not amenable to tramadol (4) Zoster: Plan: Was on valacyclovir but now converted to IV acyclovir as above for meningitis initial leukocytosis likely secondary to steroids, improved Pain control as above (5) Vertebral artery aneurysm: Plan: As above Follow-up with interventional neuroradiology as an outpatient at [place] (6) Lupus (systemic lupus erythematosus): Plan: chronic history, not on immunosuppressive therapy -suspect compromised immune system may have made her susceptible to IT SUPPORT SPECIALIST infection Plan DVT ppx: Heparin SQ FEN/GI: heart healthy Code Status: full Dispo: med tele. Prior to discharge home, would aim for improved control with p.o. medications only of pain, resolution of nausea/vomiting, and case management needs to make arrangements for home IV acyclovir. Admission and Anticipated Discharge Date Admission Date: October 16, 2022 Supervising Physician Co-Signing Physician Notes Attending attestation Pt seen and examined in concert with Dr. Woodward. In agreement with the documented findings as noted in the resident documentation with any exceptions or additions as noted here. No new episodes overnight. Pain is well controlled on current regimen. Still icing for a vague discomfort in the affected area. Family present at bedside, course of illness and recommendations for follow up reviewed. VS, nursing notes, labs and consultation notes reviewed. On examination, S1/S2 nl RRR no MCG. CTAB. Abd NT/ND BS+ve. CNII-XII grossly intact. VZV meningitis/encephalitis - ID, neurology consult - continue acyclovir for course as noted. Pain management with IV hydromorphone PRN but tolerating PO tramadol very well so can continue with that at discharge. Vertebral artery aneurysm - repeat counseling on the course of evaluation and predominant reassurance regarding her acute course, need for further evaluation and management. Else see resident documentation as noted. Subjective Seen at bedside this morning. Laying comfortably in bed. Pain better controlled on dilaudid doses. Tolerating gabapentin. No more focal deficits, left sided weakness improved. Still having posterior headache/tenderness. Denies chest pain, sob, vision changes, tinnitus, abd pain, N/V. Review of Systems Review of Systems: All systems reviewed & are unremarkable except as noted in HPI & below Physical Exam Constitutional: WD/WN, vitals as above Eyes: PERRL, conjunctivae normal, anicteric sclerae EOM intact bilaterally (no further palsy) ENMT: external ear and nose normal, oropharynx normal Neck: trachea midline, no thyromegaly Respiratory: normal respiratory effort, lungs clear to auscultation Cardiovascular: RRR, no murmur, no edema Chest (Breasts): Chest: normal inspection of chest Gastrointestinal (Abdomen): normal bowel sounds, soft, nontender, no hepatosplenomegaly Musculoskeletal: Extremities: extremities normal to inspection; no cyanosis and no clubbing Skin: + lesion (Multiple scabbed over erythematous lesions left face, preauricular regions) Neurologic: CN's II-XI intact bilaterally (mild left facial palsy with noticeable with smile), deep tendon reflexes 2+ bilaterally, + focal motor deficit (4+/5 strength in LUE, 4+/5 LLE, improved from yesterday) and awake; not confused Speech / Cognition: normal speech Motor/Sensory: + sensory deficit (Decreased sensation to light touch LUE and LLE); no tremor Psychiatric: Orientation: alert, oriented x 3 and cooperative Affect: + anxious affect Lymphatic: no lymphedema Results & Data Results & Data ([facility]) Vital Signs (Past 12 Hours) Vital Signs Temp Pulse Pulse Resp BP BP Pulse Ox 10/20/22 16:57 99 H 10/20/22 15:24 36.5 C 89 20 151/97 H 98 10/20/22 08:00 97 H 10/20/22 11:48 36.8 C 97 H 20 132/94 99 10/20/22 07:58 36.4 C L 99 H 18 121/83 100 O2 Del Method 10/20/22 16:57 10/20/22 15:24 Room Air 10/20/22 08:00 10/20/22 11:48 Room Air 10/20/22 07:58 Room Air Resident Activity Tracking Resident Involvement: Resident Care Provided Care Provided: Adult Hospital Medicine
[2022-10-20] MEDS: POLYETHYLENE (MIRALAX) 17 GM PACK PO PRN (17:28)
[2022-10-20] MEDS: ZOLPIDEM TARTRATE 10 MG TAB PO PRN (21:12)
[2022-10-21] MEDS: traMADol HCL 50 MG TABLET PO SCH ×3 (00:14→10:51)
[2022-10-21] MEDS: HEPARIN SOD 5,000 UNIT/0.5 ML VIAL SQ SCH ×2 (00:15→08:17)
[2022-10-21] MEDS: DEXTROSE 5% IV SCH ×2 (04:34→13:05)
[2022-10-21] MEDS: ACYCLOVIR SOD IV SCH ×2 (04:34→13:05)
--- NOTE | 2022-10-21 07:37 | Hospitalist Progress Note ---
Date of Service October 21, 2022 Assessment & Plan (1) Herpes zoster meningitis: Plan: Admitted with severe left-sided facial and head pain, left lateral nerve palsy , +/- left sided weakness on exam, left hemisensory deficits, left facial droop and dysarthria, with herpes zoster on the left trigeminal distribution LP on 10/16 consistent with brisk pleocytosis, elevated total protein, and positive varicella on bio fire. Gram stain and culture show no organisms. Glucose normal. Generally seems to be improving since on IV antivirals (10/16) with some waxing/waning focal deficits likely due to COMPTROLLER inflammation -Appreciate infectious disease and neurology consultations -MRI brain (10/15) negative for stroke or tumor; repeat (10/18) unchanged -CT angiogram head and neck with small 4 mm right vertebral saccular outpouchings-needs follow-up with interventional neuroradiology as an outpatient -Discontinued p.o. valacyclovir and converted to acyclovir 10 Mg/KG IV every 8 hours for 2 weeks s/p discharge (2.5~ IV antiviral coverage) -ID also suggest that there could be possible varicella vasculopathy involving both large and small arteries. Continue aspirin and high intensity statin as per neurology given increased risk for stroke with possible vasculopathy and inflammation from varicella meningitis. Lipid panel acceptable, hemoglobin A1c 6.0%. -Continue neuro checks, stroke scale daily -Pain control as below -Case management working on arranging home IV acyclovir; peripheral ultrasound- guided IV prior placed -HIV neg -Follow final Lyme serology on CSF, VDRL, EBV. (2) Nausea & vomiting: Plan: Secondary to pain and headache from herpes zoster Improved with IV Compazine, Zofran D/c'd fluids (10/19). Encouraged oral intake. -discharge on zofran for nausea (3) Acute facial pain: Plan: -Pain decently controlled -cont. gabapentin again to 600 mg po tid for postherpetic neuralgia. -Discontinued oxycodone as it makes her feel hypersensitive to noise -Continue tramadol 50mg po q6h scheduled -Continue IV Dilaudid for severe breakthrough pain not amenable to tramadol (4) Zoster: Plan: Initially on po valacyclovir but now converted to IV acyclovir as above for meningitis initial leukocytosis likely secondary to steroids, improved Pain control as above (5) Vertebral artery aneurysm: Plan: As above Follow-up with interventional neuroradiology as an outpatient at [place] (6) Lupus (systemic lupus erythematosus): Plan: chronic history, not on immunosuppressive therapy -suspect compromised immune system may have made her susceptible to COMPTROLLER infection -HIV neg Plan DVT ppx: Heparin SQ FEN/GI: heart healthy Code Status: full Dispo: med tele. Prior to discharge home, would aim for improved control with p.o. medications only of pain, resolution of nausea/vomiting, and case management needs to make arrangements for home IV acyclovir. Admission and Anticipated Discharge Date Admission Date: October 16, 2022 Subjective Seen at bedside this morning. Laying comfortably in bed. Pain better controlled on Dilaudid doses. Tolerating gabapentin. No more focal deficits, left sided weakness improved. Still having posterior headache/tenderness. Denies chest pain, sob, vision changes, tinnitus, abd pain, N/V. Review of Systems Review of Systems: All systems reviewed & are unremarkable except as noted in HPI & below Physical Exam Constitutional: WD/WN, vitals as above Eyes: PERRL, conjunctivae normal, anicteric sclerae EOM intact bilaterally (no further palsy) ENMT: external ear and nose normal, oropharynx normal Neck: trachea midline, no thyromegaly Respiratory: normal respiratory effort, lungs clear to auscultation Cardiovascular: RRR, no murmur, no edema Chest (Breasts): Chest: normal inspection of chest Gastrointestinal (Abdomen): normal bowel sounds, soft, nontender, no hepatosplenomegaly Musculoskeletal: Extremities: extremities normal to inspection; no cyanosis and no clubbing Skin: + lesion (Multiple scabbed over erythematous lesions left face, preauricular regions) Neurologic: CN's II-XI intact bilaterally (mild left facial palsy with noticeable with smile), deep tendon reflexes 2+ bilaterally, + focal motor deficit (4+/5 strength in LUE, 4+/5 LLE, improved from yesterday) and awake; not confused Speech / Cognition: normal speech Motor/Sensory: + sensory deficit (Decreased sensation to light touch LUE and LLE); no tremor Psychiatric: Orientation: alert, oriented x 3 and cooperative Affect: + anxious affect Lymphatic: no lymphedema Results & Data Results & Data ([facility]) Vital Signs (Past 12 Hours) Vital Signs Temp Pulse Pulse Resp BP Pulse Ox O2 Del Method 10/21/22 07:23 91 H 10/21/22 04:00 37.1 C 86 18 133/89 97 Room Air 10/20/22 22:17 101 H 10/20/22 22:58 36.7 C 98 H 18 137/91 98 Room Air
[2022-10-21] MEDS: GABAPENTIN 600 MG TAB PO SCH ×2 (08:17→13:47)
[2022-10-21] MEDS: ASPIRIN 81 MG ECTAB PO SCH (08:17)
[2022-10-21] MEDS: ATORVASTATIN 40 MG TAB PO SCH (08:18)
[2022-10-21] MEDS: PANTOprazole 40 MG TAB PO SCH (08:18)
[2022-10-21] MEDS: POLYETHYLENE (MIRALAX) 17 GM PACK PO PRN (08:23)
[2022-10-21] MEDS: HYDROmorphone INJ 1 MG/ML SYRINGE IV PRN ×2 (09:40→13:47)
[2022-10-21 14:42] LABS: EBV DNA Quant PCR Not Detected copies/mL; EBV DNA Quant Source CSF; Lyme DNA PCR CSF or Synovial Not Detected (Not Detected); Lyme DNA Source CSF; VDRL Qualitative CSF Nonreactive (Nonreactive)
--- NOTE | 2022-10-21 15:09 | Discharge Summary ---
Date of Service October 21, 2022 Principal Diagnosis Varicella Meningitis, vertebral artery aneurysm Discharge Exam Constitutional WD/WN, vitals as above Eyes PERRL, conjunctivae normal, anicteric sclerae EOM intact bilaterally (no further palsy) ENMT external ear and nose normal, oropharynx normal Neck trachea midline, no thyromegaly Respiratory normal respiratory effort, lungs clear to auscultation Cardiovascular RRR, no murmur, no edema Chest (Breasts) Chest: normal inspection of chest Gastrointestinal (Abdomen) normal bowel sounds, soft, nontender, no hepatosplenomegaly Musculoskeletal Extremities: extremities normal to inspection; no cyanosis and no clubbing Skin + lesion (Multiple scabbed over erythematous lesions left face, preauricular regions) Neurologic CN's II-XI intact bilaterally (mild left facial palsy with noticeable with smile), deep tendon reflexes 2+ bilaterally, + focal motor deficit (4+/5 strength in LUE, 4+/5 LLE, improved from yesterday) and awake; not confused Speech / Cognition: normal speech Motor/Sensory: + sensory deficit (Decreased sensation to light touch LUE and LLE); no tremor Psychiatric Orientation: alert, oriented x 3 and cooperative Affect: + anxious affect Lymphatic no lymphedema Discharge Data Allergies Allergy/AdvReac Type Severity Reaction Status Date / Time hydrocodone [From Vicodin] Allergy Intermediate ITCHY Verified 10/14/22 15:01 RASH, RESTLESSNESS levofloxacin [From Levaquin] Allergy Intermediate ITCHY Verified 10/14/22 15:01 RASH, RESTLESSNESS oxycodone [From Percocet] Allergy Intermediate ITCHY Verified 10/14/22 15:01 RASH, RESTLESSNESS Consultations 10/14/22 11:48 Consult Neurology Stat 10/16/22 12:49 Consult Infectious Diseases Routine Ordered Studies Laboratory Results WBC 10.42 K/ul (4.8-10.8) 10/20/22 05:47 RBC 5.00 M/uL (3.93-5.22) 10/20/22 05:47 Hgb 14.4 g/dl (12.0-16.0) 10/20/22 05:47 Hct 43.3 % (34.1-44.9) 10/20/22 05:47 MCV 86.6 fL (80.0-100.0) 10/20/22 05:47 MCH 28.8 pg (25.0-34.0) 10/20/22 05:47 MCHC 33.3 g/dL (32.0-36.0) 10/20/22 05:47 RDW Std Deviation 38.8 fL (36.4-46.3) 10/20/22 05:47 RDW Coeff of Sheryl 12.5 % (11.5-14.5) 10/20/22 05:47 Plt Count 360 K/uL (130-400) 10/20/22 05:47 MPV 9.2 fL (9.4-12.3) L 10/20/22 05:47 Immature Gran % (Auto) 0.9 % 10/20/22 05:47 Neut % (Auto) 68.1 % 10/20/22 05:47 Lymph % (Auto) 19.8 % 10/20/22 05:47 [place] % (Auto) 7.8 % 10/20/22 05:47 Eos % (Auto) 2.6 % 10/20/22 05:47 Baso % (Auto) 0.8 % 10/20/22 05:47 Neut # (Auto) 7.11 K/uL (1.4-6.5) H 10/20/22 05:47 Lymph # (Auto) 2.06 K/uL (1.2-3.4) 10/20/22 05:47 [place] # (Auto) 0.81 K/uL (0.24-0.82) 10/20/22 05:47 Eos # (Auto) 0.27 K/uL (0-0.50) 10/20/22 05:47 Baso # (Auto) 0.08 K/uL (0-0.2) 10/20/22 05:47 Immature Gran # (Auto) 0.09 K/uL (0.00-0.02) H 10/20/22 05:47 PT 10.3 Seconds (9.0-12.0) 10/14/22 11:25 INR 1.0 (0.9-1.1) 10/14/22 11:25 APTT 27.9 Seconds (21.0-31.0) 10/14/22 11:25 PTT Ratio 1.0 10/14/22 11:25 Sodium 136 mmol/L (136-145) 10/20/22 05:47 Potassium 4.0 mmol/L (3.5-5.1) 10/20/22 05:47 Chloride 101 mmol/L (98-107) 10/20/22 05:47 Carbon Dioxide 29 mmol/L (21-32) 10/20/22 05:47 Anion Gap 6 (3-11) 10/20/22 05:47 BUN 12 mg/dl (6-23) 10/20/22 05:47 Creatinine 0.70 mg/dl (0.6-1.2) 10/20/22 05:47 Est Cr Clr Drug Dosing 124.2 ml/min 10/20/22 05:47 Est GFR ( Amer) 123.9 ml/min 10/20/22 05:47 Est GFR (Non-Af Amer) 106.9 ml/min 10/20/22 05:47 BUN/Creatinine Ratio 17.1 (10-20) 10/20/22 05:47 Glucose 121 mg/dl (70-99(Fasting)) H 10/20/22 05:47 Estimat Average Glucose 126 mg/dl 10/15/22 06:06 Hemoglobin A1c 6.0 % (4.5-5.6) H 10/15/22 06:06 Calcium 9.3 mg/dl (8.5-10.1) 10/20/22 05:47 Magnesium 2.3 mg/dl (1.7-2.4) 10/14/22 11:25 Total Bilirubin 0.3 mg/dl (0.2-1.0) 10/14/22 11:21 AST 16 U/L (13-39) 10/14/22 11:21 ALT 26 U/L (7-52) 10/14/22 11:21 Alkaline Phosphatase 83 U/L (34-104) 10/14/22 11:21 Troponin I High Sens 10.4 pg/ml (0-14) D 10/14/22 11:25 Total Protein 7.5 gm/dl (6.0-8.3) 10/14/22 11:21 Albumin 4.2 gm/dl (3.4-5.0) 10/14/22 11:21 Globulin 3.3 gm/dl (2.5-4.0) 10/14/22 11:21 Albumin/Globulin Ratio 1.3 (0.9-2) 10/14/22 11:21 Triglycerides 217 mg/dl (0-150) H 10/15/22 06:06 Cholesterol 217 mg/dl (0-200) H 10/15/22 06:06 LDL Cholesterol, Calc 124 mg/dl 10/15/22 06:06 VLDL Cholesterol, Calc 43 mg/dl (0-30) H 10/15/22 06:06 HDL Cholesterol 50 mg/dl 10/15/22 06:06 Cholesterol/HDL Ratio 4.3 (0-5) 10/15/22 06:06 Fld Lyme DNA (PCR) Cancelled 10/16/22 10:20 Fld Lyme DNA (PCR) Not Detected (Not Detected) 10/16/22 10:20 Fluid Comment 10/16/22 10:20 CSF Appearance Clear 10/16/22 10:20 CSF Color Colorless 10/16/22 10:20 Xanthrochromic No xanthochromia 10/16/22 10:20 CSF WBC 49 (0-5) H* 10/16/22 10:20 CSF RBC 50 (0-) 10/16/22 10:20 CSF Cell Count Tube # 3 10/16/22 10:20 CSF Mononuclear % Auto 100.0 % 10/16/22 10:20 CSF Polynuclear WBCs 0.0 % 10/16/22 10:20 CSF Chemistry Tube # 1 10/16/22 10:20 CSF Glucose 64 mg/dl (40-70) 10/16/22 10:20 CSF Total Protein 61.4 mg/dl (15-45) H 10/16/22 10:20 CSF VDRL Cancelled 10/16/22 10:20 CSF VDRL Nonreactive (Nonreactive) 10/16/22 10:20 CSF C.neoform/gat PCR Not Detected (NotDetected) 10/16/22 10:20 CSF CMV DNA (PCR) Not Detected (NotDetected) 10/16/22 10:20 CSF Enterovirus (PCR) Not Detected (NotDetected) 10/16/22 10:20 CSF E. coli K1 (PCR) Not Detected (NotDetected) 10/16/22 10:20 CSF H. influenzae (PCR) Not Detected (NotDetected) 10/16/22 10:20 CSF HSV I (PCR) Not Detected (NotDetected) 10/16/22 10:20 CSF HSV II (PCR) Not Detected (NotDetected) 10/16/22 10:20 CSF HHV 6 (PCR) Not Detected (NotDetected) 10/16/22 10:20 CSF L.monocytogenes PCR Not Detected (NotDetected) 10/16/22 10:20 CSF N. meningitidis PCR Not Detected (NotDetected) 10/16/22 10:20 CSF Parechovirus (PCR) Not Detected (NotDetected) 10/16/22 10:20 CSF S. agalactiae (PCR) Not Detected (NotDetected) 10/16/22 10:20 CSF S. pneumoniae (PCR) Not Detected (NotDetected) 10/16/22 10:20 CSF VZV DNA (PCR) DETECTED (NotDetected) A* 10/16/22 10:20 Adenovirus (PCR) Not Detected (NotDetected) 10/14/22 12:18 B. pertussis DNA (PCR) Not Detected (NotDetected) 10/14/22 12:18 B.parapertussis DNA PCR Not Detected (NotDetected) 10/14/22 12:18 Lyme Specimen Source CSF 10/16/22 10:20 Lyme Specimen Source Cancelled 10/16/22 10:20 Lyme DNA Comment Cancelled 10/16/22 10:20 Lyme DNA Comment see note 10/16/22 10:20 C. pneumoniae DNA (PCR) Not Detected (NotDetected) 10/14/22 12:18 Coronavirus OC43 (PCR) Not Detected (NotDetected) 10/14/22 12:18 Coronavirus HKU1 (PCR) Not Detected (NotDetected) 10/14/22 12:18 Coronavirus 229E (PCR) Not Detected (NotDetected) 10/14/22 12:18 SARS-CoV-2 (PCR) Not Detected (NotDetected) 10/14/22 12:18 Coronavirus NL63 (PCR) Not Detected (NotDetected) 10/14/22 12:18 EBV Source CSF 10/16/22 10:20 EBV DNA, Quant Not Detected Log cps/mL 10/16/22 10:20 EBV DNA (PCR) Not Detected copies/mL 10/16/22 10:20 HIV (1&2) Ag & Ab Conf NON-REACTIVE (NON-REACTIVE) 10/18/22 06:24 Human Metapneumovir PCR Not Detected (NotDetected) 10/14/22 12:18 Influenza Type A (PCR) Not Detected (NotDetected) 10/14/22 12:18 Influenza Type B (PCR) Not Detected (NotDetected) 10/14/22 12:18 M. pneumoniae (PCR) Not Detected (NotDetected) 10/14/22 12:18 Parainfluenza 1 (PCR) Not Detected (NotDetected) 10/14/22 12:18 Parainfluenza 2 (PCR) Not Detected (NotDetected) 10/14/22 12:18 Parainfluenza 3 (PCR) Not Detected (NotDetected) 10/14/22 12:18 Parainfluenza 4 (PCR) Not Detected (NotDetected) 10/14/22 12:18 RSV (PCR) Not Detected (NotDetected) 10/14/22 12:18 Entero/Rhino (PCR) Not Detected (NotDetected) 10/14/22 12:[address] 10/14/22 11:[address] OF THE BRAIN; CT ANGIOGRAM OF THE BRAIN; CT ANGIOGRAM OF THE NECK CLINICAL HISTORY: Strokelike symptoms. Slurred speech. COMPARISON STUDY: CT of the brain dated 10/06/2022. MRI and MR angiogram of the brain dated 10/06/2022. TECHNIQUE: Unenhanced axial CT scan of the brain is performed. Subsequently, following the IV administration of 114 of Optiray 320, CT angiogram of the head and neck was performed from the aortic arch to the vertex. Images are reviewed in the axial, sagittal, and coronal planes. 3-D MIPS images are created and assessed. IV contrast was administered without complication. All measurements were calculated based on NASCET criteria. A dose lowering technique was utilized adhering to the principles of ALARA. CT DOSE: 1068.23 mGy.cm FINDINGS: Brain parenchyma: The brain parenchyma is normal in appearance. There is no hemorrhage, mass effect, or evidence of acute territorial ischemia by CT criteria. There is no evidence of enhancing mass lesion on the angiogram phase images. The ventricles, sulci, and cisterns are normal in configuration. Chavez- white matter differentiation is preserved. No extra-axial fluid collection is seen. Thoracic aorta: Visualized portions of the thoracic aorta are normal in caliber. The aortic arch demonstrates standard 3-vessel anatomy. Right carotid arterial system: The right common carotid artery is widely patent, as are the right internal and external carotid arteries. Left carotid arterial system: The left common carotid artery is widely patent, as are the left internal and external carotid arteries. Vertebral arteries: The vertebral arteries are patent bilaterally noting left- sided dominance. There is a beaded appearance with 2 saccular outpouchings arising from the distal right vertebral artery at the level of C2 seen on images #249 and #258. These measure up to 4 mm. There is also focal narrowing of the intervening vertebral artery at this level, best seen on axial image #257. A short segment dissection is not excluded. Subclavian arteries: Widely patent bilaterally. Intracranial vasculature: There are bilateral posterior communicating arteries. The internal carotid arteries are patent at the skull base, as are the anterior and middle cerebral arteries bilaterally. The vertebrobasilar system and posterior cerebral arteries are widely patent. The left vertebral artery is dominant. There is no aneurysm, high-grade stenosis, or focal vessel cut off seen throughout the intracranial circulation. Jugular veins: Patent bilaterally. Dural sinuses: Patent. Lung apices: Partially visualized upper lobe lung parenchyma appears clear. Soft tissues: The visualized pharyngeal soft tissues are normal in appearance noting angiographic phase technique. The oropharyngeal airway appears widely patent. The salivary and thyroid glands are normal in appearance. No cervical lymphadenopathy is seen. Skeletal structures: The calvarium appears intact. The cervical spine is within normal limits. Orbits: The bony orbits are intact. Orbital contents are normal as visualized. Sinuses and mastoids: The paranasal sinuses are clear. The mastoid air cells are well pneumatized. IMPRESSION: 1. There is no hemorrhage, mass effect, or evidence of acute territorial ischemia by CT criteria. 2. Unremarkable CT angiogram of the brain. 3. There is a beaded appearance with 2 saccular outpouchings of the distal cervical portion of the right vertebral artery at C2. The outpouching measure up to 4 mm. These may represent small aneurysms, or this could be seen with fibromuscular dysplasia. There is focal narrowing of the right vertebral artery between the outpouchings at this level such that a small dissection is not excluded. 4. Otherwise unremarkable CT angiogram of the neck. ACT 112: Negative or not required by law. Electronically signed by: Manny Neely M.D. 10/14/2022 12:05 PM Head CTA 10/14/22 11:[address] OF THE BRAIN; CT ANGIOGRAM OF THE BRAIN; CT ANGIOGRAM OF THE NECK CLINICAL HISTORY: Strokelike symptoms. Slurred speech. COMPARISON STUDY: CT of the brain dated 10/06/2022. MRI and MR angiogram of the brain dated 10/06/2022. TECHNIQUE: Unenhanced axial CT scan of the brain is performed. Subsequently, following the IV administration of 114 of Optiray 320, CT angiogram of the head and neck was performed from the aortic arch to the vertex. Images are reviewed in the axial, sagittal, and coronal planes. 3-D MIPS images are created and assessed. IV contrast was administered without complication. All measurements were calculated based on NASCET criteria. A dose lowering technique was utilized adhering to the principles of ALARA. CT DOSE: 1068.23 mGy.cm FINDINGS: Brain parenchyma: The brain parenchyma is normal in appearance. There is no hemorrhage, mass effect, or evidence of acute territorial ischemia by CT criteria. There is no evidence of enhancing mass lesion on the angiogram phase images. The ventricles, sulci, and cisterns are normal in configuration. Chavez- white matter differentiation is preserved. No extra-axial fluid collection is seen. Thoracic aorta: Visualized portions of the thoracic aorta are normal in caliber. The aortic arch demonstrates standard 3-vessel anatomy. Right carotid arterial system: The right common carotid artery is widely patent, as are the right internal and external carotid arteries. Left carotid arterial system: The left common carotid artery is widely patent, as are the left internal and external carotid arteries. Vertebral arteries: The vertebral arteries are patent bilaterally noting left- sided dominance. There is a beaded appearance with 2 saccular outpouchings arising from the distal right vertebral artery at the level of C2 seen on images #249 and #258. These measure up to 4 mm. There is also focal narrowing of the intervening vertebral artery at this level, best seen on axial image #257. A short segment dissection is not excluded. Subclavian arteries: Widely patent bilaterally. Intracranial vasculature: There are bilateral posterior communicating arteries. The internal carotid arteries are patent at the skull base, as are the anterior and middle cerebral arteries bilaterally. The vertebrobasilar system and posterior cerebral arteries are widely patent. The left vertebral artery is dominant. There is no aneurysm, high-grade stenosis, or focal vessel cut off seen throughout the intracranial circulation. Jugular veins: Patent bilaterally. Dural sinuses: Patent. Lung apices: Partially visualized upper lobe lung parenchyma appears clear. Soft tissues: The visualized pharyngeal soft tissues are normal in appearance noting angiographic phase technique. The oropharyngeal airway appears widely patent. The salivary and thyroid glands are normal in appearance. No cervical lymphadenopathy is seen. Skeletal structures: The calvarium appears intact. The cervical spine is within normal limits. Orbits: The bony orbits are intact. Orbital contents are normal as visualized. Sinuses and mastoids: The paranasal sinuses are clear. The mastoid air cells are well pneumatized. IMPRESSION: 1. There is no hemorrhage, mass effect, or evidence of acute territorial i schemia by CT criteria. 2. Unremarkable CT angiogram of the brain. 3. There is a beaded appearance with 2 saccular outpouchings of the distal cervical portion of the right vertebral artery at C2. The outpouching measure up to 4 mm. These may represent small aneurysms, or this could be seen with fibromuscular dysplasia. There is focal narrowing of the right vertebral artery between the outpouchings at this level such that a small dissection is not excluded. 4. Otherwise unremarkable CT angiogram of the neck. ACT 112: Negative or not required by law. Electronically signed by: Manny Neely M.D. 10/14/2022 12:05 PM Neck CTA 10/14/22 11:[address] OF THE BRAIN; CT ANGIOGRAM OF THE BRAIN; CT ANGIOGRAM OF THE NECK CLINICAL HISTORY: Strokelike symptoms. Slurred speech. COMPARISON STUDY: CT of the brain dated 10/06/2022. MRI and MR angiogram of the brain dated 10/06/2022. TECHNIQUE: Unenhanced axial CT scan of the brain is performed. Subsequently, following the IV administration of 114 of Optiray 320, CT angiogram of the head and neck was performed from the aortic arch to the vertex. Images are reviewed in the axial, sagittal, and coronal planes. 3-D MIPS images are created and assessed. IV contrast was administered without complication. All measurements were calculated based on NASCET criteria. A dose lowering technique was utilized adhering to the principles of ALARA. CT DOSE: 1068.23 mGy.cm FINDINGS: Brain parenchyma: The brain parenchyma is normal in appearance. There is no hemorrhage, mass effect, or evidence of acute territorial ischemia by CT criteria. There is no evidence of enhancing mass lesion on the angiogram phase images. The ventricles, sulci, and cisterns are normal in configuration. Chavez-white matter differentiation is preserved. No extra-axial fluid collection is seen. Thoracic aorta: Visualized portions of the thoracic aorta are normal in caliber. The aortic arch demonstrates standard 3-vessel anatomy. Right carotid arterial system: The right common carotid artery is widely patent, as are the right internal and external carotid arteries. Left carotid arterial system: The left common carotid artery is widely patent, as are the left internal and external carotid arteries. Vertebral arteries: The vertebral arteries are patent bilaterally noting left- sided dominance. There is a beaded appearance with 2 saccular outpouchings arising from the distal right vertebral artery at the level of C2 seen on images #249 and #258. These measure up to 4 mm. There is also focal narrowing of the intervening vertebral artery at this level, best seen on axial image #257. A short segment dissection is not excluded. Subclavian arteries: Widely patent bilaterally. Intracranial vasculature: There are bilateral posterior communicating arteries. The internal carotid arteries are patent at the skull base, as are the anterior and middle cerebral arteries bilaterally. The vertebrobasilar system and posterior cerebral arteries are widely patent. The left vertebral artery is dominant. There is no aneurysm, high-grade stenosis, or focal vessel cut off seen throughout the intracranial circulation. Jugular veins: Patent bilaterally. Dural sinuses: Patent. Lung apices: Partially visualized upper lobe lung parenchyma appears clear. Soft tissues: The visualized pharyngeal soft tissues are normal in appearance noting angiographic phase technique. The oropharyngeal airway appears widely patent. The salivary and thyroid glands are normal in appearance. No cervical lymphadenopathy is seen. Skeletal structures: The calvarium appears intact. The cervical spine is within normal limits. Orbits: The bony orbits are intact. Orbital contents are normal as visualized. Sinuses and mastoids: The paranasal sinuses are clear. The mastoid air cells are well pneumatized. IMPRESSION: 1. There is no hemorrhage, mass effect, or evidence of acute territorial ischemia by CT criteria. 2. Unremarkable CT angiogram of the brain. 3. There is a beaded appearance with 2 saccular outpouchings of the distal cervical portion of the right vertebral artery at C2. The outpouching measure up to 4 mm. These may represent small aneurysms, or this could be seen with fibromuscular dysplasia. There is focal narrowing of the right vertebral artery between the outpouchings at this level such that a small dissection is not excluded. 4. Otherwise unremarkable CT angiogram of the neck. ACT 112: Negative or not required by law. Electronically signed by: Manny Neely M.D. 10/14/2022 12:05 PM Lumbar Puncture Fluoroscopy 10/16/22 16:01 10/16/2022 10:43 AM FL lumbar puncture diagnostic EXAMINATION: Fluoroscopic-guided lumbar puncture. CLINICAL HISTORY: Herpes Zoster, r/o [employer] infection PROCEDURE: After the technique, risks, alternatives, and benefits of the procedure were explained to the patient, signed consent was obtained. A confirmatory timeout was performed prior to initiation of the procedure. A suitable puncture site at the L2-L3 level was obtained using fluoroscopy. The site was then cleaned and prepped in the usual sterile fashion. A total of 5 mL of 1% lidocaine was infused into the subcutaneous tissues during the procedure to achieve local anesthesia. Using a 20-gauge 3 1/2 inch spinal needle, the thecal sac was accessed under fluoroscopic guidance with the patient in the prone position. Approximately 8 mL of clear CSF was collected into four separate vials. The spinal needle with stylet in place was removed and pressure was placed over the puncture site until hemostasis was achieved. There were no immediate complications. The patient tolerated the procedure well. IMPRESSION: Fluoroscopic guided lumbar puncture. Approximately 8 mL of clear CSF was collected into four separate vials. No immediate complications. Fluoroscopy time: 1.5 minutes. ACT 112: Negative or not required by law. Electronically signed by: Robson Melo M.D. 10/16/2022 11:58 AM Brain MRI 10/18/22 10:04 MR brain wo con HISTORY: 42 years-old Female worsening L sided weakness acute strokelike symptoms with left-sided weakness. Recent lumbar puncture. COMPARISON: Brain MRI 10/15/2022 TECHNIQUE: Multiplanar sequence MRI of the brain was obtained without the use of IV contrast. FINDINGS: Cad Specialist localizer images demonstrate no gross extracranial abnormality. There is no restricted diffusion to suggest acute or subacute infarct. Midline structures appear unremarkable. The imaged cervical spine is within normal limits. No acute intracranial hemorrhage, midline shift, abnormal extra-axial collection, hydrocephalus or intracranial mass. The volume and signal of the brain parenchyma is within normal limits. Cerebral venous sinuses and major arterial flow voids are patent. Skull, orbits and soft tissues are within normal limits. The mastoid air cells and paranasal sinuses are generally clear. IMPRESSION: Stable exam from the study obtained 3 days earlier. No acute intracranial abnormality. ACT 112: Negative or not required by law. The above report was generated using voice recognition software. It may contain grammatical, syntax or spelling errors. Electronically signed by: Pradip Sheppard M.D. 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 Gram stain and culture show no organisms. Glucose normal. Generally seems to be improving since on IV antivirals (10/16) with some waxing/waning focal deficits likely due to [employer] inflammation. -Appreciate infectious disease and neurology consultations -MRI brain (10/15) negative for stroke or tumor; repeat (10/18) unchanged -CT angiogram head and neck with small 4 mm right vertebral saccular outpouchings-needs follow-up with interventional neuroradiology as an outpatient -Discontinued p.o. valacyclovir and converted to acyclovir 10 Mg/KG IV every 8 hours for 2 weeks s/p discharge (2.5~ IV antiviral coverage) -ID also suggest that there could be possible varicella vasculopathy involving both large and small arteries. Continue aspirin and high intensity statin as per neurology given increased risk for stroke with possible vasculopathy and inflammation from varicella meningitis. Lipid panel acceptable, hemoglobin A1c 6.0%. -Pain control as below -HIV neg -Follow final Lyme serology on CSF, VDRL, EBV. -f/u neuro radiology, pcp, neurology (2) Nausea & vomiting: Secondary to pain and headache from herpes zoster Improved with IV Compazine, Zofran D/c'd fluids (10/19). Encouraged oral intake. -discharge on zofran for nausea (3) Acute facial pain: -Pain decently controlled -Discontinued oxycodone as it makes her feel hypersensitive to noise -cont. gabapentin again to 600 mg po tid for postherpetic neuralgia. -Continue tramadol 50-100mg po q6h (4) Zoster: Initially on valacyclovir but now converted to IV acyclovir as above for meningitis initial leukocytosis likely secondary to steroids, improved Pain control as above (5) Vertebral artery aneurysm: As above Follow-up with interventional neuroradiology as an outpatient at [facility] (6) Lupus (systemic lupus erythematosus): chronic history, not on immunosuppressive therapy -suspect compromised immune system may have made her susceptible to [employer] infection -HIV neg Total Time Total Time Spent Total Time Spent (In Minutes): 30 Discharge Plan Discharge Items Patient Disposition: Home - Home Health Services Reason For Visit: TIA? FACIAL ZOSTER. 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, vertebral artery aneurysm Activity: Per Instructions section Non-emergency contact: Primary Care Provider and Neurologist Call non-emergency contact if: you have any medication questions Follow-up/Referrals: Abbey Rosario DO [Physician] - (first available, any provider ) Marta Hardy [Primary Care Provider] - 10/27/22 10:25 am Chaparro Stevenson MD [Outside Practitioners] - (first available, any provider) Diet: Heart Healthy Addtl Attending Provider Instructions: You were admitted to the hospital with complaints of left-sided facial pain and a rash which was suspected as shingles treated in the outpatient setting with oral antivirals. Bilateral primary care, there was concern for left-sided focal deficits which prompted immediate ER care. In the hospital you were found to have an infection of your meninges secondary to the shingles. The superficial viral infection known as varicella had spread from your skin to your meninges causing a meningitis. Is possible that you are more susceptible to a meningeal infection secondary to your lupus. However, for completion, we did obtain an HIV test which is still pending. We started you on IV antiviral medications and your symptoms did appear to improve. You have been discharged on 2 weeks of continued antiviral treatment. The exact etiology of your left-sided deficits are unclear at this time however it is possible this was from brain inflammation and/or a vascular phenomenon. This infection on your brain has been shown to elicit transient vascular constriction similar to mimicking a stroke. Thankfully your symptoms were short lasted and should continue to improve with treatment. A large component of your symptoms will stem from pain. We will discharge you with prescription of oral pain medication which should help acutely. As we read the infection with our antivirals your pain should also begin to improve by the day. You should follow-up with your primary care provider in the next 1 to 2 weeks to assess progress. You will also be scheduled with [facility] neurology and interventional radiology teams. Incidentally upon brain imaging you were also found to have 2 right vertebral outpouchings (aneurysms). It is unclear if these were present prior to the infection or may have been caused by the infection. Given your family history this is something that we do want to follow-up with in the outpatient setting. We have referred you to the appropriate parties as above who will provide further recommendations on management. Based on your med list you are on estrogen supplementation at home. As this can put you at a higher risk for a stroke please hold this medication until further advised by your primary care provider. For the above diagnoses you will be started on new medications as below. -81 mg aspirin once daily for stroke prevention -Atorvastatin 40 mg once daily for vascular health -Gabapentin 600 mg 3 times a day for nerve pain -Tramadol 50 mg every 6 hours as needed for pain as well (may take 1-2 pills) -zofran as needed for nausea Pending Studies at Discharge: Yes (Lyme serology on CSF, VDRL, EBV) Stand-Alone Forms: My [facility], Smoking Cessation Medications and DC Order Prescriptions: New atorvastatin 40 mg Tablet 40 mg PO QAM Qty: 30 0RF gabapentin 600 mg Tablet 600 mg PO TID Qty: 90 0RF aspirin 81 mg Tablet,Delayed Release (Dr/Ec) 81 mg PO DAILY Qty: 30 0RF ondansetron HCl 4 mg tablet 4 mg PO Q6H PRN (Reason: nausea and vomiting) Qty: 30 0RF tramadol 50 mg Tablet 50 mg PO Q6H PRN (Reason: pain) 7 Days Qty: 30 0RF Continued pantoprazole 40 mg Tablet,Delayed Release (Dr/Ec) 40 mg PO HS zolpidem [Ambien] 10 mg Tablet 10 mg PO HS PRN (Reason: Sleep) Vyvanse 60 mg Capsule 60 mg PO DAILY Rx Instructions: PER PT "HAVEN'T TAKEN FOR ABOUT 4 DAYS". tizanidine 2 mg tablet 2 mg PO DIRECTED PRN (Reason: MUSCLE SPASMS) paroxetine HCl 40 mg tablet 40 mg PO HS Discontinued estradiol 0.5 mg Tablet 0.5 mg PO DAILY Rx Instructions: off 5 days; repeat cycle valacyclovir 1 gram tablet 1 mg PO TID Rx Instructions: STARTED 10/09/22 FOR 10 DAYS. prednisone 50 mg tablet 50 mg PO DAILY Rx Instructions: STARTED 10/09/22 FOR 5 DAYS. Discharge Orders: Discharge Order (Routine); Ordered 10/21/22 Ordered By: Denis Sorensen/Other Patient Handouts: Prediabetes, 5 Steps for Eating Healthier Admission Data Admit Date/Time: 10/16/22 10:21 Attending Provider: Juan Garcia Admit Provider: Serge Gilliland Primary Care Provider: Marta Hardy Other Providers: Lpóez Colón ; Jocelyne Zamora ; [facility] Other Interventions: Discharge Summary Assessment (RN) Last Done: 10/21/22 14:13 Supervising Physician Co-Signing Physician Notes Attending attestation Pt seen and examined in concert with Dr. Woodward. In agreement with the documented findings as noted in the resident documentation with any exceptions or additions as noted here. No new episodes overnight. Pain is well controlled on current regimen and continues gradual improvement. Icing for a vague discomfort in the affected area. Subjective stable/mildly improved weakness. VS, nursing notes, labs and consultation notes reviewed. On examination, S1/S2 nl RRR no MCG. CTAB. Abd NT/ND BS+ve. Persistent left sided facial weakness as well as 4+/5 left sided weakness of the UE and LE. VZV meningitis/encephalitis - ID, neurology consult - continue acyclovir to complete course as noted. Pain management with PO tramadol. Close outpatient f/u. Vertebral artery aneurysm - counseling during admission on the course of evalu ation and predominant reassurance regarding her acute course, need for further evaluation and management. Neuroradiology referral. Else see resident documentation as noted. Total attending physician time spent with this patient's care on the day of discharge: 35 minutes. Resident Activity Tracking Resident Involvement: Resident Care Provided Care Provided: Adult [facility] Medicine
--- NOTE | 2022-10-28 11:46 | Coding Query ---
CODING QUERY To promote full compliance with coding requirements relating to patient care, provider participation is requested in all cases of white sugar supervisor uncertainty. Please assist us with the question(s) below: Coding Question(s): There is documentation in the record of Vertebral Artery Aneurysm and the Neurology Consultation documents, "Vertebral artery aneurysm: Impression: There was a beaded appearance with 2 saccular outpouching of the distal cervical portion of the right vertebral artery, measuring up to 4 mm. This may represent small aneurysm but also could be seen with fibromuscular dysplasia. At this level, small dissection is not excluded" , and this is documented in Neurology Progress Notes and, as of the last Neurology Progress Note on 10/17, there is documentation of, "Vertebral artery aneurysm: Plan: Impression: There was a beaded appearance with 2 saccular outpouching of the distal cervical portion of the right vertebral artery, measuring up to 4 mm. This may represent small aneurysm but also could be seen with fibromuscular dysplasia. At this level, small dissection is not excluded. Zoster meningitis and induced vasculitis is considered in differential. Recommendations: We will keep the patient on aspirin and Lipitor. --Repeat CT angiography is after acute treatment. Outpatient follow-up with interventional radiology." Please specify below, in your clinical opinion, regarding the documentation of small dissection is not excluded, under the documentation of vertebral artery aneurysm. ( ) Possible vertebral artery dissection was monitored and/or treated during this admission ( ) Possible vertebral artery dissection was Not monitored and/or treated during this admission (x ) Other: Please Specify__Inconclusive pending further evaluation Physician's Response(s): Thank you Andra Dupont Principal Diagnosis: "that condition established after study, to be chiefly responsible for occasioning the admission of the patient to the hospital for care." Co-Existing Principal Diagnosis: "when two or more diagnoses equally meet the criteria for principal diagnosis as determined by the circumstances of admission, diagnostic work up, and/or therapy provided, and the Alphabetic Index, Tabular List, or another coding guideline does not provide sequencing direction, any one of the diagnoses may be sequenced first." "When the physician has documented what appears to be a current diagnosis in the body of the record, but has not included the diagnosis in the final diagnostic statement, the physician should be asked whether the diagnosis should be added." (Source [facility]oding [facility] 2 QTR90. p3-4) HAIRSH
--- NOTE | 2022-10-28 11:57 | Coding Query ---
CODING QUERY To promote full compliance with coding requirements relating to patient care, provider participation is requested in all cases of medical biller coder uncertainty. Please assist us with the question(s) below: Coding Question(s): Herpes Zoster Meningitis is documented in the record and on Discharge Summary, and there is documentation, by supervising physician in Progress Notes, such as Progress Note 10/20, and on Discharge Summary of VZV meningitis/encephalitis, and the Infectious Disease Consultation documents, Herpes zoster meningitis as the first diagnosis under Assessment & Plan, and under Plan is documentation, "ID consulted today based on findings concerning for VZV mengino-encephalitis", and also, "Discussion: Patient with evidence of VZV meningitis and 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 It is not clear if this is Herpes Zoster Meningitis/VZV Meningitis or if this is VZV Meningoencephalitis/Encephalitis. Please specify below, in your clinical opinion: ( ) Most likely VZV/Herpes Zoster Meningitis ( x) Most likely VZV Meningoencephalitis/Encephalitis ( ) Other: Please Specify Physician's Response(s): Thank you Andra Dupont Principal Diagnosis: "that condition established after study, to be chiefly responsible for occasioning the admission of the patient to the hospital for care." Co-Existing Principal Diagnosis: "when two or more diagnoses equally meet the criteria for principal diagnosis as determined by the circumstances of admission, diagnostic work up, and/or therapy provided, and the Alphabetic Index, Tabular List, or another coding guideline does not provide sequencing direction, any one of the diagnoses may be sequenced first." "When the physician has documented what appears to be a current diagnosis in the body of the record, but has not included the diagnosis in the final diagnostic statement, the physician should be asked whether the diagnosis should be added." (Source Coding Clinic 2 QTR90. p3-4) ANNE MARIED
== END 2022-10-21 14:35 | disposition home health service (06) | DRG 73 ==
LOC: EDINP 11:05 → ED 11:05 → SUATTDRO 13:17 → 2N 15:33 → SUATTDRO 10-16 10:21